=== PATIENT | female | born 1950 | race Caucasian/White ===

== ENCOUNTER → 2017-04-27 | Outpatient (CLI) | payer MEDICARE, OTHER ==
[~2017-04-27] MED LIST: ALLO100T PO; AMLO10TA2 PO; ASPI81TA85 PO; CENTTAB47 PO; FURO40TA2 PO; HYDR-3713 PO; INSUDET SC; INSUH10VL SC; JANU100T PO; LOVA40TA PO; MAGN500T2 PO; METF-415 PO; METO1TAB7 PO; METO50TA7 PO; NORT10CA2 PO; OXYC-141 PO; PERC5TAB12 PO; PROT1TAB2 PO; TRAM50TA2 PO
--- NOTE | 2017-04-27 16:24 | REP ---
REASON: Knee pain. Assess for fluid collection. Multiple sonographic images of the medial posterior right knee show a nearly anechoic structure measuring 6.1 x 1.4 x 2.4 cm, possibly representing a kaye's cyst. IMPRESSION: Possible bakers cyst as described above. MRI would be confirmatory. Signed by Hakan Chen DO 04/27/2017 04:37 P
== END ==
LOC: M RAD 11:35
PROVIDERS: ATTEND Physician Assistant
DX: M25.561 Pain in right knee (principal)

== ENCOUNTER → 2017-08-10 | Outpatient (CLI) | payer MEDICARE, OTHER ==
[2017-08-10 20:10] LABS: ALBUMIN 3.8 GM/DL (3.2-5.2); ALBUMIN/GLOBULIN RATIO 0.95 (1.00-1.93); BILIRUBIN,DIRECT 0.2 MG/DL (0.0-0.2); BILIRUBIN,TOTAL 0.5 MG/DL (0.2-1.0); MAGNESIUM LEVEL 2.1 MG/DL (1.8-2.4); TOTAL PROTEIN 7.8 GM/DL (6.4-8.2)
== END ==
LOC: M WUC 13:46
PROVIDERS: ATTEND Internal Medicine Gastroenterology
DX: R10.13 Epigastric pain (principal); R94.5 Abnormal results of liver function studies; K58.9 Irritable bowel syndrome, unspecified; R16.0 Hepatomegaly, not elsewhere classified; E55.9 Vitamin D deficiency, unspecified

== ENCOUNTER → 2017-08-13 | Outpatient (CLI) | payer MEDICARE, OTHER ==
--- NOTE | 2017-08-13 10:17 | REP ---
Radionuclide gastric emptying: Anterior posterior images are performed at 2-minute intervals for 90 minutes following ingestion of two scrambled eggs with 6 ounces of water radiolabeled with 1.02 mCi of technetium 99m sulfur colloid. At 90 minutes there was 30% gastric emptying. The calculated T1/2 is 153 minutes. Normal T1/2 is 90 minutes. Impression: Delayed gastric emptying. Signed by Celso Vergara MD 08/13/2017 10:09 A
== END ==
LOC: M RAD 07:38
PROVIDERS: ATTEND Internal Medicine Gastroenterology
DX: R10.13 Epigastric pain (principal); R94.5 Abnormal results of liver function studies; K85.90 Acute pancreatitis without necrosis or infection, unspecified; Q45.3 Other congenital malformations of pancreas and pancreatic duct; R63.0 Anorexia; R16.0 Hepatomegaly, not elsewhere classified; K75.81 Nonalcoholic steatohepatitis (NASH); E55.9 Vitamin D deficiency, unspecified
CPT/HCPCS: 78264; A9541

== ENCOUNTER → 2017-11-05 | Outpatient (CLI) | payer MEDICARE, OTHER ==
[2017-11-05 19:40] LABS: HEMATOCRIT 39.3 % (36.0-47.0); HEMOGLOBIN 12.9 g/dl (12.0-16.0); MEAN CORPUSCULAR HEMOGLOBIN 29.8 pg (27.0-33.0); MEAN CORPUSCULAR HGB CONC 32.8 g/dl (32.0-36.5); MEAN CORPUSCULAR VOLUME 90.8 fl (80.0-96.0); PLATELET COUNT, AUTOMATED 185 10^3/uL (150-450); RED BLOOD COUNT 4.33 10^6/uL (4.00-5.40); RED CELL DISTRIBUTION WIDTH 13.2 % (11.5-14.5)
[2017-11-05 19:51] LABS: INR 0.97
[2017-11-05 20:58] LABS: ALBUMIN 3.8 GM/DL (3.2-5.2); ALBUMIN/GLOBULIN RATIO 0.93 (1.00-1.93); ALKALINE PHOSPHATASE 129 U/L (45-117); ALT/SGPT 59 U/L (12-78); ANION GAP 9 MEQ/L (8-16); AST/SGOT 52 U/L (7-37); BILIRUBIN,TOTAL 0.4 MG/DL (0.2-1.0); BLOOD UREA NITROGEN 45 MG/DL (7-18); CALCIUM LEVEL 9.5 MG/DL (8.8-10.2); CARBON DIOXIDE LEVEL 30 MEQ/L (21-32); CHLORIDE LEVEL 101 MEQ/L (98-107); CREATININE FOR GFR 1.72 MG/DL (0.55-1.02); GLOMERULAR FILTRATION RATE 31.7 (>45); GLUCOSE, FASTING 195 MG/DL (80-110); POTASSIUM SERUM 4.1 MEQ/L (3.5-5.1); SODIUM LEVEL 140 MEQ/L (136-145); TOTAL PROTEIN 7.9 GM/DL (6.4-8.2)
[2017-11-08 14:11] LABS: ANTINUCLEAR ANTIBODIES DIRECT Negative (Negative)
== END ==
LOC: M WUC 13:35
DX: R94.5 Abnormal results of liver function studies (principal); R16.0 Hepatomegaly, not elsewhere classified; Q45.3 Other congenital malformations of pancreas and pancreatic duct; R10.13 Epigastric pain
CPT/HCPCS: 80053

== ENCOUNTER → 2017-11-19 | Outpatient (CLI) | payer MEDICARE, OTHER | LOC: M RAD 08:42 | DX: R10.11 Right upper quadrant pain (principal); R16.0 Hepatomegaly, not elsewhere classified; R94.5 Abnormal results of liver function studies | CPT/HCPCS: J2805 ==

== ENCOUNTER → 2018-01-31 | Outpatient (CLI) | payer MEDICARE, OTHER | LOC: M RAD 08:50 | DX: R94.5 Abnormal results of liver function studies (principal) | CPT/HCPCS: 76705 ==

== ENCOUNTER → 2018-04-06 | Outpatient (CLI) | payer MEDICARE, OTHER | LOC: M RAD 07:53 | DX: R10.13 Epigastric pain (principal); R11.2 Nausea with vomiting, unspecified | CPT/HCPCS: 78264 ==

== ENCOUNTER → 2018-08-12 | Outpatient (CLI) | payer MEDICARE, OTHER | LOC: M RAD 10:02 | DX: K76.0 Fatty (change of) liver, not elsewhere classified (principal); R16.0 Hepatomegaly, not elsewhere classified; K74.60 Unspecified cirrhosis of liver; R94.5 Abnormal results of liver function studies; R10.13 Epigastric pain; K29.70 Gastritis, unspecified, without bleeding; K44.9 Diaphragmatic hernia without obstruction or gangrene; E55.9 Vitamin D deficiency, unspecified; Z12.11 Encounter for screening for malignant neoplasm of colon | CPT/HCPCS: 76705 ==

== ENCOUNTER → 2018-11-28 | Outpatient (CLI) | payer MEDICARE, OTHER ==
[~2018-11-28] MED LIST changes: -AMLO10TA2 PO; +AMLO10TA5 PO
[2018-11-28 17:58] LABS: CALCIUM LEVEL 10.2 MG/DL (8.8-10.2); CREATININE FOR GFR 1.98 MG/DL (0.55-1.30); GLOMERULAR FILTRATION RATE 26.8 (>45); POTASSIUM SERUM 4.7 MEQ/L (3.5-5.1)
== END ==
LOC: M WUC 11:12
PROVIDERS: ATTEND Physician Assistant
DX: E87.6 Hypokalemia (principal)

== ENCOUNTER → 2019-01-02 | Outpatient (CLI) | payer MEDICARE, OTHER | LOC: M WUC 09:14 | PROVIDERS: ATTEND Internal Medicine Nephrology | DX: E11.69 Type 2 diabetes mellitus with other specified complication (principal) ==

== ENCOUNTER 2019-07-16 05:44 | Inpatient (IN) | payer MEDICARE, OTHER ==
[~2019-07-16] VITALS: Ht 157.5 cm; Wt 114.1 kg
[2019-07-16] MEDS ORDERED: ALLO100T PO (06:48)
[2019-07-16] MEDS ORDERED: FURO40TA2 PO ×2 (06:53)
[2019-07-16] MEDS ORDERED: LOVA20TA2 PO (06:53)
[2019-07-16 06:55] LABS: BASO % 0.1 % (0.0-1.0); EOS % 0.1 % (0.0-3.0); HEMATOCRIT 39.3 % (36.0-47.0); HEMOGLOBIN 12.8 g/dl (12.0-15.5); LYMPH # 0.8 10^3/uL (1.5-5.0); LYMPH % 5.5 % (24.0-44.0); MEAN CORPUSCULAR HEMOGLOBIN 30.5 pg (27.0-33.0); MEAN CORPUSCULAR HGB CONC 32.6 g/dl (32.0-36.5); MEAN CORPUSCULAR VOLUME 93.8 fl (80.0-96.0); MONO # 0.9 10^3/uL (0.0-0.8); MONO % 6.5 % (0.0-5.0); NEUTROPHILS # 12.6 10^3/uL (1.5-8.5); NEUTROPHILS % 87.2 % (36.0-66.0); PLATELET COUNT, AUTOMATED 145 10^3/uL (150-450); RED BLOOD COUNT 4.19 10^6/uL (4.00-5.40); WHITE BLOOD COUNT 14.5 10^3/uL (4.0-10.0)
[2019-07-16] MEDS ORDERED: TORS20TA2 PO (07:00)
[2019-07-16] MEDS ORDERED: SPIR50TA4 PO (07:00)
[2019-07-16] MEDS ORDERED: K-TA10TA PO (07:00)
[2019-07-16] MEDS ORDERED: TORS100T PO (07:00)
[2019-07-16] MEDS ORDERED: K-TA10TA2 PO (07:00)
[2019-07-16] MEDS ORDERED: CETI10CH PO (07:01)
[2019-07-16 07:20] LABS: ALT/SGPT 104 U/L (12-78); AMYLASE 56 U/L (25-115); BILIRUBIN,DIRECT 0.5 MG/DL (0.0-0.2); BILIRUBIN,TOTAL 0.8 MG/DL (0.2-1.0); BLOOD UREA NITROGEN 53 MG/DL (7-18); CALCIUM LEVEL 9.2 MG/DL (8.8-10.2); CARBON DIOXIDE LEVEL 28 MEQ/L (21-32); CHLORIDE LEVEL 98 MEQ/L (98-107); CK-MB VALUE MASS < 1.0 NG/ML (<3.6); CPK CREATINE PHOSPHOKINASE 46 U/L (26-192); CREATININE FOR GFR 2.44 MG/DL (0.55-1.30); GLUCOSE, FASTING 169 MG/DL (70-100); LIPASE 146 U/L (73-393); MB/CK RELATIVE INDEX 2.17 (< OR =4); POTASSIUM SERUM 4.6 MEQ/L (3.5-5.1); SODIUM LEVEL 135 MEQ/L (136-145); TOTAL PROTEIN 7.3 GM/DL (6.4-8.2); TROPONIN I < 0.02 NG/ML (< 0.10)
[2019-07-16] MEDS ORDERED: NS 1,000 ML IV ONE ×2 (07:30→10:00)
--- NOTE | 2019-07-16 08:29 | REPVR ---
PROCEDURE INFORMATION: Exam: CT Abdomen and pelvis without contrast Exam date and time: 07/16/2019 7:45 AM Clinical history: 69 years old, female; Abdominal pain; Flank; Left; Additional info: Left flank pain, fever TECHNIQUE: Imaging protocol: Computed tomography of the abdomen and pelvis without contrast. Radiation optimization: All CT scans at this facility use at least one of these dose optimization techniques: automated exposure control; mA and/or kV adjustment per patient size (includes targeted exams where dose is matched to clinical indication); or iterative reconstruction. COMPARISON: CT ABD PELVIS W/O CONTRAST 11/21/2015 3:47 PM FINDINGS: Lungs: There is bilateral posterior lung atelectasis. Liver: There is nodular hepatic contour. Gallbladder and bile ducts: There is gallbladder layering milk of calcium versus small stones. There is no biliary ductal dilatation. Pancreas: Normal. No ductal dilation. Spleen: Normal. No splenomegaly. Adrenals: Normal. No mass. Kidneys and ureters: The right kidney is severely atrophic. There is nonspecific left perinephric stranding with stranding and edema seen in the renal hilum also. Stomach and bowel: Unremarkable. No obstruction. No mucosal thickening. Appendix: No evidence of appendicitis. Intraperitoneal space: Unremarkable. No free air. No significant fluid collection. Vasculature: There is moderate coronary vascular calcifications. There is short segment aneurysmal dilatation of the infrarenal abdominal aorta measuring up to 3 cm. Lymph nodes: Unremarkable. No enlarged lymph nodes. Bladder: The urinary bladder is not distended limiting its evaluation. Reproductive: Unremarkable as visualized. Bones/joints: There is multilevel lumbar spine facet arthrosis with significant L5 S1 disc degenerative changes. Soft tissues: There is a 3.2 x 3.1 cm periumbilical fat containing hernia.. IMPRESSION: 1. Severely atrophic right kidney likely congenital. 2. Nonspecific mild left perinephric stranding as well as stranding in the region of the renal hilum. No obstructing stones or hydronephrosis seen. Correlate clinically for pyelonephritis. 3. Cirrhotic liver. 4. Small amount of layering milk of calcium versus gallstones with no CT evidence of cholecystitis. 5. Mild fusiform short segment aneurysmal dilatation of the infrarenal aorta measuring up to 3 cm. 6. 3.2 x 3.1 cm periumbilical fat-containing. COMMENT: Consistent with the [employer]'s Incidental Findings Committee Report (J Am Pia Radiol 2010): Unless the patient's specific circumstances suggest otherwise, any liver lesion 0.5 cm or less, any cystic kidney lesion less than 1.0 cm, and/or any adrenal lesion 1.0 cm or less not otherwise characterized in this report as possessing suspicious or indeterminate imaging features is/are highly likely to be benign and do not require follow-up imaging or biopsy. Electronically signed by: Cuong Soriano On 07/16/2019 08:29:45 AM
[2019-07-16] MEDS ORDERED: cefTRIAXone SOD 1 GM in D5W MINI-BAG PLUS 50 ML IV ONE (09:45)
[2019-07-16] MEDS ORDERED: GABA-1171 PO (10:10)
[2019-07-16] MEDS ORDERED: ACET-897 PO (10:10)
[2019-07-16] MEDS ORDERED: MULTCAP PO (10:10)
[2019-07-16] MEDS ORDERED: GLUCAGON FOR INJ 1 MG VIAL (J1610) SC PRN (10:30)
[2019-07-16] MEDS ORDERED: DEXTROSE 50% 50 ML SYRINGE IV PRN (10:30)
[2019-07-16] MEDS ORDERED: GLUCOSE 4 GM CHEW TABLET PO PRN (10:30)
[2019-07-16] MEDS ORDERED: MORPHINE 4 MG/ML 1ML VIAL/SYRINGE (J2270) IV PRN (10:30)
[2019-07-16] MEDS ORDERED: ONDANSETRON 4MG/2ML VIAL (J2405) IV ONE (10:30)
[2019-07-16] MEDS: NS 1,000 ML IV SCH ×4 (11:00→20:46)
[2019-07-16] MEDS: ACETAMINOPHEN TAB 650MG DOSE (2X325MG) PO PRN ×2 (11:57→20:48)
[2019-07-16] MEDS: HumaLOG INSULIN (NovoLOG) PER UNIT SC SCH ×2 (12:00→18:04)
--- NOTE | 2019-07-16 13:50 | HPEPDOC ---
General Date of Admission Jul 16, 2019 at 10:18 Date of Service: Jul 16, 2019 Chief Complaint The patient is a 69-year-old female Who presented to the emergency room with complaints of fevers and chills History of Present Illness Patient is a 69-year-old female with a PMHx of CHF?, HTN, DLP, DM2, Congenitally atrophic right kidney, CKD3, Neuropathy, Gout, Arthritis and GERD who presented to the emergency room with complaints of fevers and chills. Patient has reported that she began to experience fevers and chills on Wednesday she noted that she had associated left-sided abdominal/back pain. Patient reported the pain as 8-9/10, reported as a constant burning sensation. Reported that she has had a fever of 101F at home and persistent chills. Patient did report taking Tylenol 4:00 this morning. Patient denies any vomiting but does experience nausea. . She denies any constipation, diarrhea, or urinary discomfort. She denies any chest pain but does report some shortness of breath and palpitations. Denies any significant cough. Patient does report some weight loss but notes that her appetite has been fairly normal. She denies any recent antibiotic use. Home Medications Scheduled Allopurinol (Allopurinol) 100 Mg Tablet, 100 MG PO BID, (Reported) AM AND HS Amlodipine Besylate (Amlodipine Besylate) 10 Mg Tab, 10 MG PO DAILY, (Reported) Aspirin (Aspir 81) 81 Mg Tab, 81 MG PO QHS, (Reported) Gabapentin (Gabapentin) 100 Mg Capsule, 300 MG PO QHS, (Reported) Lovastatin (Lovastatin) 20 Mg Tablet, 20 MG PO QHS, (Reported) Magnesium Oxide (Magnesium Oxide) 500 Mg Tab, 500 MG PO BID, (Reported) Metoprolol Succinate (Metoprolol Succinate) 50 Mg Tab, 50 MG PO QHS, (Reported) Multivitamin (Multivitamins) 1 Each Capsule, 1 CAP PO QHS, (Reported) Pantoprazole Sodium (Protonix) 40 Mg Tab, 40 MG PO DAILY, (Reported) Potassium Chloride (K-Tab ER) 10 Meq Tablet.er, 10 MEQ PO QHS, (Reported) 30 MEQ TOTAL PER DAY Potassium Chloride (K-Tab ER) 10 Meq Tablet.er, 20 MEQ PO DAILY, (Reported) 30 MEQ TOTAL PER DAY Spironolactone (Spironolactone) 50 Mg Tablet, 50 MG PO DAILY, (Reported) Torsemide (Torsemide) 20 Mg Tablet, 40 MG PO QHS, (Reported) 90 MG TOTAL PER DAY Torsemide (Torsemide) 100 Mg Tablet, 50 MG PO DAILY, (Reported) 90 MG TOTAL PER DAY Scheduled PRN Acetaminophen (Tylenol Extra Strength) 500 Mg Tablet, 1,000 MG PO Q6H PRN for PAIN / FEVER, (Reported) Cetirizine HCl (Cetirizine HCl) 10 Mg Tab.chew, 1 TAB PO DAILY PRN for ALLERGY SYMPTOMS, (Reported) Insulin Human Lispro (Novolog) 100 U/Ml Inj, 1 DOSE SC WM PRN for CARB INTAKE, (Reported) USES INSULIN PUMP Allergies Coded Allergies: Sulfa (Sulfonamide Antibiotics) (Verified Allergy, Intermediate, HIVES, 07/16/19) tetracycline (Verified Allergy, Intermediate, HIVES, 07/16/19) bee venom protein (honey bee) (Verified Allergy, Unknown, SWELLING, 07/16/19) Past Medical History Medical History CHF?, HTN, DLP, DM2, Congenitally atrophic right kidney, CKD3, Neuropathy, Gout, Arthritis and GERD Surgical History Back surgery 1998 Neck surgery 2006 Carpal tunnel release Right elbow surgery Ovarian cyst removal Tubal ligation Right knee surgery 2007 Colonoscopy 2003 Right hand surgery 2019 Right ankle surgery Family History - Mother with a history of breast tumor - Father with a history of bladder cancer - Son with a history of kidney disease and skin cancer Social History - Denies the use of alcohol or illicit drugs; patient has quit smoking - Denies recent travel or sick contacts - Lives alone in [place] - Occupation; 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 [employer] Review [employer] Systems Other systems 10 point review of systems complete, all negative otherwise stated in HPI Vital Signs - Vitals: BP 151/58, HR 110, RR 16, Sat 92%RA, Temp 102.2F - General: Lying in bed, No acute distress, Speaking in full sentences, AAOx3 - HEENT: NC, AT, PERRLA, EOMI - CVS: Tachycardia, +S1S2 - Lungs: Fair air entry bilaterally, No appreciable wheezing / rales / rhonchi - Abdomen: Soft, Non-distended, Tenderness noted at L upper quadrant / flank - Extremities: No lower extremity edema, No calf tenderness - Neuro: No focal motor or sensory deficit - Skin: No visible rashes Laboratory Data Labs 24H Laboratory Tests 2 07/16/19 06:20: Immature Granulocyte % (Auto) 0.6, White Blood Count 14.5H, Red Blood Count 4.19, Hemoglobin 12.8, Hematocrit 39.3, Mean Corpuscular Volume 93.8, Mean Corpuscular Hemoglobin 30.5, Mean Corpuscular Hemoglobin Concent 32.6, Red Cell Distribution Width 16.0H, Platelet Count 145L, Neutrophils (%) (Auto) 87.2H, Lymphocytes (%) (Auto) 5.5L, Monocytes (%) (Auto) 6.5H, Eosinophils (%) (Auto) 0.1, Basophils (%) (Auto) 0.1, Neutrophils # (Auto) 12.6H, Lymphocytes # (Auto) 0.8L, Monocytes # (Auto) 0.9H, Eosinophils # (Auto) 0.0, Basophils # (Auto) 0.0, Nucleated Red Blood Cells % (auto) 0.0, Anion Gap 9, Glomerular Filtration Rate 21.0L, Lactic Acid Level 2.0, Calcium Level 9.2, Aspartate Amino Transf (AST/SGOT) 66H, Alanine Aminotransferase (ALT/SGPT) 104H, Alkaline Phosphatase 300H, Total Bilirubin 0.8, Direct Bilirubin 0.5H, Total Creatine Kinase 46, Creatine Kinase MB < 1.0, Creatine Kinase MB Relative Index 2.17, Troponin I < 0.02, Total Protein 7.3, Albumin 3.0L, Albumin/Globulin Ratio 0.70L, Amylase Level 56, Lipase 146 07/16/19 09:28: Urine Color YELLOW, Urine Appearance HAZY, Urine pH 6.0, Urine Specific [place] 1.006, Urine Protein 1+H, Urine Glucose (UA) NEGATIVE, Urine Ketones NEGATIVE, Urine Blood 3+H, Urine Nitrite NEGATIVE, Urine Bilirubin NEGATIVE, Urine Urobilinogen 0.2, Urine Leukocyte Esterase 3+H, Urine WBC (Auto) TNTCH, Urine RBC (Auto) 26H, Urine Hyaline Casts (Auto) 0, Urine Bacteria (Auto) 1+H, Urine Squamous Epithelial Cells 0, Urine Amorphous Sediment SMALLH, Urine Mucus (Auto) SMALL, Urine Sperm (Auto) 07/16/19 12:33: Bedside Glucose (Misc Panel) 155H CBC/BMP Laboratory Tests 07/16/19 06:20 Red Blood Count 4.19, Mean Corpuscular Volume 93.8, Mean Corpuscular Hemoglobin 30.5, Mean Corpuscular Hemoglobin Concent 32.6, Red Cell Distribution Width 16.0 H, Neutrophils (%) (Auto) 87.2 H, Lymphocytes (%) (Auto) 5.5 L, Monocytes (%) (Auto) 6.5 H, Eosinophils (%) (Auto) 0.1, Basophils (%) (Auto) 0.1, Neutrophils # (Auto) 12.6 H, Lymphocytes # (Auto) 0.8 L, Monocytes # (Auto) 0.9 H, Eosinophils # (Auto) 0.0, Basophils # (Auto) 0.0 Microbiology Microbiology 07/16/19 Urine Culture, Received Pending 07/16/19 Blood Culture, Received Pending 07/16/19 Blood Culture, Received Pending Plan / VTE VTE Prophylaxis Ordered?: Yes Plan Plan Fever / Chills - likely 2/2 UTI / Pyelonephritis - Patient has been experiencing fevers and chills since Wednesday associated with left-sided flank pain - Physical exam does reveal left-sided flank tenderness - Patient is febrile, but remains hemodynamically stable - Leukocytosis with neutrophil predominance is noted; no lactic acidosis - Urinalysis is consistent with urinary tract infection; urine and blood culture remains pending - CT ab/pel 07/16: 1. Severely atrophic right kidney likely congenital. 2. Nonspecific mild left perinephric stranding as well as stranding in the region of the renal hilum. No obstructing stones or hydronephrosis seen. Correlate clinically for pyelonephritis. 3. Cirrhotic liver. 4. Small amount of layering milk of calcium versus gallstones with no CT evidence of cholecystitis. 5. Mild fusiform short segment aneurysmal dilatation of the infrarenal aorta measuring up to 3 cm. 6. 3.2 x 3.1 cm periumbilical fat-containing. - Patient and started on aggressive IV fluid hydration and antibiotics with ceftriaxone CALE on CKD3 - likely 2/2 pre-renal etiology - 2/2 - Hx of Congenitally atrophic right kidney - Patient creatinine appears to be elevated compared to baseline - Will c/w IV fluid hydration - Patient follows with Dr. Garcia in [place] Thrombocytopenia - Imaging his indicated possibility of cirrhosis - Will continue to monitor counts Elevated liver enzymes - Hepatitis profile from 02/2016 was negative - Will repeat hepatitis profile currently - Imaging was consistent with cirrhosis - Will continue to monitor levels CHF, EF unknown - There does not appear to be any signs of fluid overload - Will order ECHO - Will hold torsemide and spironolactone - Will reduce rate of IV fluid hydration within 12 hours HTN - Blood pressure is within normal range - Will hold antihypertensive medications at this point DLP - Continue with Simvastatin DM2 - Patient reports that she only has half the pancreas; but was diagnosed with diabetes in her 40s - Patient has been on an insulin pump as an outpatient - Given patients poor oral intake, will transition the patient had an insulin sliding scale while inpatient Neuropathy - c/w Gabapentin Gout - c/w Allopurinol Arthritis - c/w Tylenol GERD - c/w Protonix DVT prophylaxis - Will start TEDs / Sequentials (re: Thrombocytopenia) VIVIAN BRITTON MD Jul 16, 2019 13:50
[2019-07-16] MEDS: ALLOPURINOL 100 MG TAB PO SCH ×2 (14:18→20:47)
[2019-07-16] MEDS: MAGNESIUM OXIDE 400 MG TAB (MAG-OX) PO SCH ×2 (14:18→20:47)
[2019-07-16 16:00] VITALS: BP 100/62
[2019-07-16] MEDS ORDERED: NS 500 ML IV ONE (18:30)
[2019-07-16 20:00] VITALS: BP 96/51
[2019-07-16] MEDS: ASPIRIN 81 MG ENTERIC TAB PO SCH (20:47)
[2019-07-16] MEDS: SIMVASTATIN 20 MG TAB PO SCH (20:47)
[2019-07-16] MEDS: GABAPENTIN 300 MG CAP PO SCH (20:47)
[2019-07-16] MEDS: MULTIVITAMINS/MINERALS THERAP 1 TAB PO SCH (20:48)
[2019-07-16] MEDS ORDERED: HumaLOG INSULIN (NovoLOG) PER UNIT SC SCH (21:00)
[2019-07-16 23:59] VITALS: BP 101/51
[2019-07-17] MEDS: ACETAMINOPHEN TAB 650MG DOSE (2X325MG) PO PRN ×2 (02:41→15:31)
[2019-07-17] MEDS: NS 1,000 ML IV SCH ×2 (02:44→21:21)
[2019-07-17 03:57] VITALS: BP 100/55
[2019-07-17 05:49] LABS: HEMATOCRIT 32.2 % (36.0-47.0); MEAN CORPUSCULAR HEMOGLOBIN 29.7 pg (27.0-33.0); MEAN CORPUSCULAR HGB CONC 31.7 g/dl (32.0-36.5); MEAN CORPUSCULAR VOLUME 93.9 fl (80.0-96.0); RED BLOOD COUNT 3.43 10^6/uL (4.00-5.40); WHITE BLOOD COUNT 16.9 10^3/uL (4.0-10.0)
[2019-07-17 05:56] LABS: HEMOGLOBIN 10.2 g/dl (12.0-15.5)
[2019-07-17 05:59] LABS: LYMPHOCYTES 12 % (16-44); MONOCYTES 9 % (0-5); NEUTROPHILS 73 % (28-66)
[2019-07-17 06:00] LABS: ANISOCYTOSIS 1+; PLATELET ESTIMATE INVALID (NORMAL)
[2019-07-17 06:21] LABS: ALBUMIN 2.1 GM/DL (3.2-5.2); BILIRUBIN,TOTAL 1.1 MG/DL (0.2-1.0); CALCIUM LEVEL 7.7 MG/DL (8.8-10.2); CREATININE FOR GFR 3.38 MG/DL (0.55-1.30); GLOMERULAR FILTRATION RATE 14.4 (>45); MAGNESIUM LEVEL 2.2 MG/DL (1.8-2.4); TOTAL PROTEIN 6.3 GM/DL (6.4-8.2)
--- NOTE | 2019-07-17 07:17 | REP ---
AP PORTABLE CHEST: 07/07/2019. Comparison: 07/28/2015 chest. Clinical history: Dyspnea. Lungs slightly hypoinflated but no gross infiltrate or effusion. There is some minor basilar subsegmental atelectasis or fibrotic change. Prominent epicardial fat as on the CT abdomen this date. No vascular redistribution or pulmonary edema. The aorta is calcified tortuous and unchanged. Airway intact. Surgical anchors overlying the right shoulder. Degenerative changes of the spine and shoulders. Impression: 1. Some minor basilar subsegmental atelectasis or infiltrate. No gross effusion or dense consolidation. 2. Cardiomegaly without edema.. 3. Tortuous calcified aorta without gross aneurysm. Electronically Signed by Misha Renteria MD 07/17/2019 08:23 A
[2019-07-17 07:38] LABS: PLTBLUE- EDTA FREE CALC 86 K/mm3 (172-450)
[2019-07-17 08:00] VITALS: BP 123/64
[2019-07-17] MEDS: ALLOPURINOL 100 MG TAB PO SCH ×2 (08:16→20:27)
[2019-07-17] MEDS: PANTOPRAZOLE 40MG TAB (PROTONIX) PO SCH (08:16)
[2019-07-17] MEDS: MAGNESIUM OXIDE 400 MG TAB (MAG-OX) PO SCH ×2 (08:16→20:26)
[2019-07-17] MEDS: HumaLOG INSULIN (NovoLOG) PER UNIT SC SCH ×3 (08:16→17:13)
[2019-07-17 08:20] LABS: PLTBLUE- EDTA FREE MACHINE 78 10^3/uL (172-450)
[2019-07-17] MEDS ORDERED: cefTRIAXone SOD 1 GM in D5W MINI-BAG PLUS 50 ML IV SCH (10:00)
--- NOTE | 2019-07-17 11:47 | IPNPDOC ---
Text Note Date of Service The patient was seen on 07/17/19. NOTE Subjective: Patient is a 69-year-old female with a PMHx of CHF?, HTN, DLP, DM2, Congenitally atrophic right kidney, CKD3, Neuropathy, Gout, Arthritis and GERD who presented to the emergency room with complaints of fevers and chills. Patient has reported that she began to experience fevers and chills on Wednesday she noted that she had associated left-sided abdominal/back pain. Patient reported the pain as 8-9/10, reported as a constant burning sensation. Reported that she has had a fever of 101F at home and persistent chills. Patient did report taking Tylenol 4:00 this morning. Patient was admitted to hospitalist service for suspected pyelonephritis. Patient was seen and examined at the bedside. Currently, patient reports that she's feeling significantly better. She denies any chest pain, shortness of breath or palpitations. She does report some left-sided abdominal pain but reports that it is significantly improved and rates the pain at 2/10. Denies any diarrhea. Continues to urinate without any discomfort at the time. Objective: Vitals (See below) General: Lying in bed, no acute distress, comfortable, AAOx3 HEENT: NC, AT CVS: RRR, +S1S2 Lungs: Fair air entry b/l, no appreciable rhonchi or wheezing, Very faint bibasilar crackles are appreciated Abdomen: Soft, ND, mild tenderness appreciated at left side Extremities: no evidence of LE chano, - Calf tenderness Assessment and plan: Sepsis - 2/2 gram negative bacteremia - likely 2/2 UTI / Pyelonephritis - Patient has been experiencing fevers and chills since Wednesday associated with left-sided flank pain - Physical with improvement in left-sided abdominal/flank tenderness - Patient is febrile, but remains hemodynamically stable - Leukocytosis - has increased; s/p Lactic acidosis - Urinalysis is consistent with urinary tract infection - Blood cultures 07/16: Preliminary positive for gram negative rods; Urine culture 07/16: Possibly contaminated - CT ab/pel 07/16: 1. Severely atrophic right kidney likely congenital. 2. Nonspe cific mild left perinephric stranding as well as stranding in the region of the renal hilum. No obstructing stones or hydronephrosis seen. Correlate clinically for pyelonephritis. 3. Cirrhotic liver. 4. Small amount of layering milk of calcium versus gallstones with no CT evidence of cholecystitis. 5. Mild fusiform short segment aneurysmal dilatation of the infrarenal aorta measuring up to 3 cm. 6. 3.2 x 3.1 cm periumbilical fat-containing. - c/w IV fluid hydration (will reduce rate)l; c/w ceftriaxone (Day #2) CALE on CKD3 - likely 2/2 pre-renal etiology - Hx of Congenitally atrophic right kidney - Patient creatinine appears to be elevated compared to baseline; kidney function has deteriorated over last 24 hours. We'll continue with IV fluid hydration at this time - Will avoid nephrotoxic medications - c/w IV fluid hydration - Patient follows with Dr. Garcia in [place] Thrombocytopenia - possibly 2/2 sepsis, possibly 2/2 cirrhosis - Imaging his indicated possibility of cirrhosis - No evidence of bleeding - Will continue to monitor counts Elevated liver enzymes - Appears to be trending down - Hepatitis profile from 02/2016 was negative - Hepatitis profile pending - Imaging was consistent with cirrhosis - Will continue to monitor levels CHF, EF unknown - There does not appear to be any signs of fluid overload - ECHO pending - Continue to hold torsemide and spironolactone - c/w adjusted rate of IV fluid hydration HTN - Blood pressure is within normal range - Will hold antihypertensive medications at this point DLP - c/w Simvastatin DM2 - Patient reports that she only has half the pancreas; but was diagnosed with diabetes in her 40s - Patient has been on an insulin pump as an outpatient - Given patients poor oral intake, will transition the patient had an insulin sliding scale while inpatient - Will likely resume insulin pump within 24 hours Neuropathy - c/w Gabapentin Gout - c/w Allopurinol Arthritis - c/w Tylenol GERD - c/w Protonix DVT prophylaxis - c/w TEDs / Sequentials (re: Thrombocytopenia) VS,Fishbone, I+O VS, Fishbone, I+O Laboratory Tests 07/17/19 05:37 Red Blood Count 3.43 L, Mean Corpuscular Volume 93.9, Mean Corpuscular Hemoglobin 29.7, Mean Corpuscular Hemoglobin Concent 31.7 L, Red Cell Distribution Width 15.9 H, Calcium Level 7.7 #L, Aspartate Amino Transf (AST/SGOT) 55 H, Alanine Aminotransferase (ALT/SGPT) 78, Alkaline Phosphatase 234 H, Total Bilirubin 1.1 H, Total Protein 6.3 L, Albumin 2.1 #L Vital Signs Date Time Temp Pulse Resp B/P (MAP) Pulse Ox O2 Delivery O2 Flow Rate FiO2 07/17/19 08:00 97.2 77 18 123/64 (83) 92 07/16/19 11:54 Room Air I&O- Last 24 Hours up to 6 AM 07/17/19 05:59 Intake Total 5016 ml Output Total 690 ml Balance 4326 ml VIVIAN BRITTON MD Jul 17, 2019 11:47
[2019-07-17 12:00] VITALS: BP 116/61
[2019-07-17 12:48] LABS: HEPATITIS B SURFACE ANTIGEN NEGATIVE (NEGATIVE)
[2019-07-17 13:15] LABS: HEPATITIS C VIRUS ABY INDEX 0.2 INDEX (<0.8)
[2019-07-17 13:16] LABS: HEPATITIS B CORE ANTIBODY IGM NEGATIVE (NEGATIVE)
[2019-07-17 13:18] LABS: HEPATITIS A ANTIBODY IGM NEGATIVE (NEGATIVE)
[2019-07-17 16:00] VITALS: BP 128/63
[2019-07-17] MEDS ORDERED: HumaLOG INSULIN (NovoLOG) PER UNIT SC STA (17:06)
--- NOTE | 2019-07-17 17:49 | ECHO ---
DATE OF PROCEDURE: 07/17/2019 REFERRING PHYSICIAN: Dr. Jacinta Armando INDICATION: Sepsis. Height 158 cm, weight 105 kg. DIMENSIONS: IVS: 1.0 LV: 5.3 LVPW: 1.0 LA: 3.8 Aorta: 2.9 Mitral E wave velocity: 66 A wave: 81 E prime septal: 5.9 E prime lateral: 9.6 FINDINGS: The study is of fair technical quality. The patient is in sinus rhythm. Left ventricle is of normal size and systolic function with estimated left ventricular ejection fraction (LVEF) approximately 60-65%. I do not appreciate any segmental wall motion abnormalities. Right ventricle is also normal size and systolic function. Both atria appear normal. Aortic valve appears minimally sclerotic but has normal mobility. Mitral valve exhibits mild degenerative abnormalities with mitral annular calcifications. Tricuspid valve is normal. Pulmonic valve was not well seen. No pericardial effusion is noted. Aortic root is normal. Aortic arch and abdominal aorta were not well visualized. Doppler interrogation of aortic valve reveals no stenosis or insufficiency. There is mild mitral insufficiency and trace tricuspid insufficiency. Calculated pulmonary artery pressure is within normal limits. Mitral inflow pattern and tissue Doppler imaging of mitral annulus revealed grade 1 diastolic dysfunction. CONCLUSIONS: 1. Study is of fair technical quality. 2. Normal left ventricular (LV) size with preserved LV systolic function and grade 1 diastolic dysfunction. 3. Aortic sclerosis but no significant stenosis. 4. Mild mitral and tricuspid insufficiency. 5. Unable to estimate central venous pressure but likely normal pulmonary artery pressure. COMMENT: Subacute bacterial endocarditis (SBE) prophylaxis is not recommended.
[2019-07-17 19:56] VITALS: BP 113/57
[2019-07-17] MEDS: SIMVASTATIN 20 MG TAB PO SCH (20:27)
[2019-07-17] MEDS: ASPIRIN 81 MG ENTERIC TAB PO SCH (20:27)
[2019-07-17] MEDS: MULTIVITAMINS/MINERALS THERAP 1 TAB PO SCH (20:27)
[2019-07-17] MEDS: GABAPENTIN 300 MG CAP PO SCH (20:27)
[2019-07-17 23:59] VITALS: BP 124/59
[2019-07-18 04:00] VITALS: BP 109/54
[2019-07-18 06:16] LABS: BASO % 0.2 % (0.0-1.0); HEMATOCRIT 32.9 % (36.0-47.0); HEMOGLOBIN 10.7 g/dl (12.0-15.5); LYMPH # 0.7 10^3/uL (1.5-5.0); LYMPH % 6.2 % (24.0-44.0); MEAN CORPUSCULAR HEMOGLOBIN 30.1 pg (27.0-33.0); MEAN CORPUSCULAR HGB CONC 32.5 g/dl (32.0-36.5); MEAN CORPUSCULAR VOLUME 92.7 fl (80.0-96.0); MONO # 0.6 10^3/uL (0.0-0.8); MONO % 5.6 % (0.0-5.0); NEUTROPHILS # 9.8 10^3/uL (1.5-8.5); NEUTROPHILS % 86.1 % (36.0-66.0); PLATELET COUNT, AUTOMATED 101 10^3/uL (150-450); RED BLOOD COUNT 3.55 10^6/uL (4.00-5.40); WHITE BLOOD COUNT 11.4 10^3/uL (4.0-10.0)
[2019-07-18 06:45] LABS: ALBUMIN 2.3 GM/DL (3.2-5.2); ALT/SGPT 86 U/L (12-78); BILIRUBIN,TOTAL 0.7 MG/DL (0.2-1.0); BLOOD UREA NITROGEN 67 MG/DL (7-18); CALCIUM LEVEL 8.4 MG/DL (8.8-10.2); CARBON DIOXIDE LEVEL 23 MEQ/L (21-32); CHLORIDE LEVEL 103 MEQ/L (98-107); CREATININE FOR GFR 2.77 MG/DL (0.55-1.30); GLOMERULAR FILTRATION RATE 18.2 (>45); GLUCOSE, FASTING 346 MG/DL (70-100); MAGNESIUM LEVEL 2.8 MG/DL (1.8-2.4); POTASSIUM SERUM 4.8 MEQ/L (3.5-5.1); SODIUM LEVEL 133 MEQ/L (136-145)
[2019-07-18 08:00] VITALS: BP 135/60
[2019-07-18] MEDS: PANTOPRAZOLE 40MG TAB (PROTONIX) PO SCH (08:01)
[2019-07-18] MEDS: ALLOPURINOL 100 MG TAB PO SCH ×2 (08:01→20:17)
[2019-07-18] MEDS: MAGNESIUM OXIDE 400 MG TAB (MAG-OX) PO SCH ×3 (08:01→21:00)
[2019-07-18] MEDS: CEFDINIR 300 MG CAP (OMNICEF) PO SCH (08:01)
[2019-07-18] MEDS: NS 1,000 ML IV SCH ×2 (08:01→20:17)
--- NOTE | 2019-07-18 12:12 | IPNPDOC ---
Text Note Date of Service The patient was seen on 07/18/19. NOTE Subjective: Patient is a 69-year-old female with a PMHx of CHF?, HTN, DLP, DM2, Congenitally atrophic right kidney, CKD3, Neuropathy, Gout, Arthritis and GERD who presented to the emergency room with complaints of fevers and chills. Patient has reported that she began to experience fevers and chills on Wednesday she noted that she had associated left-sided abdominal/back pain. Patient reported the pain as 8-9/10, reported as a constant burning sensation. Reported that she has had a fever of 101F at home and persistent chills. Patient did report taking Tylenol 4:00 this morning. Patient was admitted to hospitalist service for suspected pyelonephritis. Patient was seen and examined at the bedside. Patient is feeling significantly better. Denies any problems overnight. Reports improvement in pain. No urinary discomfort or diarrhea reported. Objective: Vitals (See below) General: Lying in bed, no acute distress, comfortable, AAOx3 HEENT: NC, AT CVS: +S1S2 Lungs: Fair air entry b/l, no appreciable rhonchi or wheezing, very faint bibasilar crackles are appreciated Abdomen: Soft, ND, very mild tenderness is still appreciated at left flank Extremities: LE are without any edema, - Calf tenderness Assessment and plan: Sepsis - 2/2 E. Coli bacteremia - likely 2/2 UTI / Pyelonephritis - Patient has been experiencing fevers and chills since Wednesday associated with left-sided flank pain - Physical with improvement in left-sided abdominal/flank tenderness - Has been afebrile for >48 hours - Leukocytosis - has increased; s/p Lactic acidosis - Urinalysis is consistent with urinary tract infection - Blood cultures 07/16: E. Coli; Blood cultures 07/17: Negative at 24 hours, Urine culture 07/16: Contaminated - CT ab/pel 07/16: 1. Severely atrophic right kidney likely congenital. 2. Nonspecific mild left perinephric stranding as well as stranding in the region of the renal hilum. No obstructing stones or hydronephrosis seen. Correlate clinically for pyelonephritis. 3. Cirrhotic liver. 4. Small amount of layering milk of calcium versus gallstones with no CT evidence of cholecystitis. 5. Mild fusiform short segment aneurysmal dilatation of the infrarenal aorta measuring up to 3 cm. 6. 3.2 x 3.1 cm periumbilical fat-containing. - c/w IV fluid hydration - will discontinue within 12 hours - Will start Cefdinir; Will DC ceftriaxone (Day #3) CALE on CKD3 - likely 2/2 pre-renal etiology - Hx of Congenitally atrophic right kidney - Baseline Cr of 1.1-1.7; has been improving with IV fluid hydration - Will avoid nephrotoxic medications - c/w IV fluid hydration - Patient follows with Dr. Garcia in [place] Thrombocytopenia - possibly 2/2 sepsis, possibly 2/2 cirrhosis - Imaging his indicated possibility of cirrhosis - No evidence of bleeding - Will continue to monitor counts Elevated liver enzymes - Appears to be trending down - Hepatitis profile from 02/2016 was negative; again on 07/16 - Imaging was consistent with cirrhosis - Will continue to monitor levels - Patient follows with a [facility] in [place] Chronic Diastolic CHF, EF unknown - There does not appear to be any signs of fluid overload - ECHO 07/17: EF 65%, G1DD, Mild Mitral / Tricuspid Insufficiency, - Continue to hold torsemide and spironolactone - c/w adjusted rate of IV fluid hydration HTN - Blood pressure is within normal range - Will hold antihypertensive medications at this point DLP - c/w Simvastatin DM2 - Patient reports that she only has half the pancreas; but was diagnosed with diabetes in her 40s - Patient has been on an insulin pump as an outpatient - Given patients poor oral intake, will transition the patient had an insulin sliding scale while inpatient - c/w Insulin Pump Neuropathy - c/w Gabapentin Gout - c/w Allopurinol Arthritis - c/w Tylenol Morbid obesity - BMI 48.1 - Complicating medical care GERD - c/w Protonix DVT prophylaxis - c/w TEDs / Sequentials (re: Thrombocytopenia) VS,Fishbone, I+O VS, Fishbone, I+O Laboratory Tests 07/18/19 06:00 Red Blood Count 3.55 L, Mean Corpuscular Volume 92.7, Mean Corpuscular Hemoglobin 30.1, Mean Corpuscular Hemoglobin Concent 32.5, Red Cell Distribution Width 15.2 H, Neutrophils (%) (Auto) 86.1 H, Lymphocytes (%) (Auto) 6.2 L, Monocytes (%) (Auto) 5.6 H, Eosinophils (%) (Auto) 0.0, Basophils (%) (Auto) 0.2, Neutrophils # (Auto) 9.8 H, Lymphocytes # (Auto) 0.7 L, Monocytes # (Auto) 0.6, Eosinophils # (Auto) 0.0, Basophils # (Auto) 0.0, Calcium Level 8.4 L, Aspartate Amino Transf (AST/SGOT) 49 H, Alanine Aminotransferase (ALT/SGPT) 86 H, Alkaline Phosphatase 224 H, Total Bilirubin 0.7, Total Protein 7.0, Albumin 2.3 L Vital Signs Date Time Temp Pulse Resp B/P (MAP) Pulse Ox O2 Delivery O2 Flow Rate FiO2 07/18/19 08:00 96.1 80 18 135/60 (85) 97 07/16/19 11:54 Room Air I&O- Last 24 Hours up to 6 AM 07/18/19 06:00 Intake Total 5100 ml Output Total 2935 ml Balance 2165 ml VIVIAN BRITTON MD Jul 18, 2019 12:12
[2019-07-18 13:06] LABS: INR 1.03; PROTHROMBIN TIME 13.2 SECONDS (11.8-14.0)
[2019-07-18] MEDS: ACETAMINOPHEN TAB 650MG DOSE (2X325MG) PO PRN ×2 (15:49→23:03)
[2019-07-18 16:00] VITALS: BP 139/66
[2019-07-18 20:00] VITALS: BP 134/66
[2019-07-18] MEDS: MULTIVITAMINS/MINERALS THERAP 1 TAB PO SCH (20:17)
[2019-07-18] MEDS: ASPIRIN 81 MG ENTERIC TAB PO SCH (20:17)
[2019-07-18] MEDS: GABAPENTIN 300 MG CAP PO SCH (20:17)
[2019-07-18] MEDS: SIMVASTATIN 20 MG TAB PO SCH (20:17)
[2019-07-19 01:00] VITALS: BP 152/70
[2019-07-19 06:00] VITALS: BP 149/72
[2019-07-19 06:18] LABS: BASO % 0.3 % (0.0-1.0); EOS # 0.1 10^3/uL (0.0-0.5); EOS % 0.8 % (0.0-3.0); HEMATOCRIT 31.4 % (36.0-47.0); HEMOGLOBIN 10.2 g/dl (12.0-15.5); LYMPH # 0.9 10^3/uL (1.5-5.0); MEAN CORPUSCULAR HEMOGLOBIN 30.2 pg (27.0-33.0); MEAN CORPUSCULAR HGB CONC 32.5 g/dl (32.0-36.5); MEAN CORPUSCULAR VOLUME 92.9 fl (80.0-96.0); MONO # 0.5 10^3/uL (0.0-0.8); MONO % 6.7 % (0.0-5.0); NEUTROPHILS # 6.1 10^3/uL (1.5-8.5); PLATELET COUNT, AUTOMATED 100 10^3/uL (150-450); RED BLOOD COUNT 3.38 10^6/uL (4.00-5.40); WHITE BLOOD COUNT 7.8 10^3/uL (4.0-10.0)
[2019-07-19 06:42] LABS: ALBUMIN 2.1 GM/DL (3.2-5.2); BILIRUBIN,TOTAL 0.5 MG/DL (0.2-1.0); CALCIUM LEVEL 8.5 MG/DL (8.8-10.2); CREATININE FOR GFR 2.06 MG/DL (0.55-1.30); GLOMERULAR FILTRATION RATE 25.6 (>45); MAGNESIUM LEVEL 2.9 MG/DL (1.8-2.4); POTASSIUM SERUM 4.6 MEQ/L (3.5-5.1); TOTAL PROTEIN 6.5 GM/DL (6.4-8.2)
[2019-07-19] MEDS: CEFDINIR 300 MG CAP (OMNICEF) PO SCH (08:33)
[2019-07-19] MEDS: ALLOPURINOL 100 MG TAB PO SCH (08:33)
[2019-07-19] MEDS: PANTOPRAZOLE 40MG TAB (PROTONIX) PO SCH (08:33)
[2019-07-19] MEDS: MAGNESIUM OXIDE 400 MG TAB (MAG-OX) PO SCH (08:49)
[2019-07-19] MEDS ORDERED: CEFD300CAP PO (10:13)
--- NOTE | 2019-07-19 12:44 | DS.PDOC ---
Discharge Summary General Date of Admission Jul 16, 2019 at 10:18 Date of Discharge 07/19/2019 Discharge Summary PROCEDURES PERFORMED DURING STAY: [None]. ADMITTING DIAGNOSES / DISCHARGE DIAGNOSES: Sepsis - 2/2 E. Coli bacteremia - likely 2/2 UTI / Pyelonephritis s/p CALE on CKD3 - likely 2/2 pre-renal etiology Thrombocytopenia - possibly 2/2 sepsis, possibly 2/2 cirrhosis Elevated liver enzymes Chronic Diastolic CHF, EF unknown HTN DLP IDDM2 Neuropathy Gout Arthritis Morbid obesity GERD DVT prophylaxis COMPLICATIONS/CHIEF COMPLAINT: Left sided abdominal pain / Fever / Chills HISTORY OF PRESENT ILLNESS: Patient is a 69-year-old female with a PMHx of CHF?, HTN, DLP, DM2, Congenitally atrophic right kidney, CKD3, Neuropathy, Gout, Arthritis and GERD who presented to the emergency room with complaints of fevers and chills. Patient has reported that she began to experience fevers and chills on Wednesday she noted that she had associated left-sided abdominal/back pain. Patient repor yelena the pain as 8-9/10, reported as a constant burning sensation. Reported that she has had a fever of 101F at home and persistent chills. Patient did report taking Tylenol 4:00 this morning. Patient was admitted to hospitalist service for suspected pyelonephritis. HOSPITAL COURSE: Sepsis - 2/2 E. Coli bacteremia - likely 2/2 UTI / Pyelonephritis - Patient has been experiencing fevers and chills since Wednesday associated with left-sided flank pain - Physical without any abdominal tenderness - Has been afebrile for >48 hours - s/p Leukocytosis; s/p Lactic acidosis - Urinalysis is consistent with urinary tract infection - Blood cultures 07/16: E. Coli; Blood cultures 07/17: Negative at 24 hours, Urine culture 07/16: Contaminated - CT ab/pel 07/16: 1. Severely atrophic right kidney likely congenital. 2. Nonspecific mild left perinephric stranding as well as stranding in the region of the renal hilum. No obstructing stones or hydronephrosis seen. Correlate clinically for pyelonephritis. 3. Cirrhotic liver. 4. Small amount of layering milk of calcium versus gallstones with no CT evidence of cholecystitis. 5. Mild fusiform short segment aneurysmal dilatation of the infrarenal aorta measuring up to 3 cm. 6. 3.2 x 3.1 cm periumbilical fat-containing. - c/w IV fluid hydration - will discontinue within 12 hours - c/w Cefdinir; s/p ceftriaxone (Antibiotic day #4) s/p CALE on CKD3 - likely 2/2 pre-renal etiology - Hx of Congenitally atrophic right kidney - Baseline Cr of 1.1-1.7; continues to approach baseline - Will avoid nephrotoxic medications - Will DC IV fluid hydration; Patient continues to take in fluid appropriately - Patient follows with Dr. Garcia in [place] Thrombocytopenia - possibly 2/2 sepsis, possibly 2/2 cirrhosis - Imaging his indicated possibility of cirrhosis - No evidence of bleeding - Will continue to monitor counts Elevated liver enzymes - Appears to be trending down - Hepatitis profile from 02/2016 was negative; again on 07/16 - Imaging was consistent with cirrhosis - Will continue to monitor levels - Patient follows with a [facility] in [place] Chronic Diastolic CHF, EF unknown - There does not appear to be any signs of fluid overload - ECHO 07/17: EF 65%, G1DD, Mild Mitral / Tricuspid Insufficiency, - Continue to hold torsemide and spironolactone - c/w adjusted rate of IV fluid hydration HTN - Blood pressure is within normal range - Will resume BP medications on discharge DLP - c/w Simvastatin IDDM2 - Patient reports that she only has half the pancreas; but was diagnosed with diabetes in her 40s - s/p ISS - c/w Insulin Pump as per outpatient protocol Neuropathy - c/w Gabapentin Gout - c/w Allopurinol Arthritis - c/w Tylenol Morbid obesity - BMI 48.1 - Complicating medical care GERD - c/w Protonix DVT prophylaxis - c/w TEDs / Sequentials (re: Thrombocytopenia) DISCHARGE MEDICATIONS: Please see below. ALLERGIES: Please see below. PHYSICAL EXAMINATION ON DISCHARGE: Vitals (See below) General: Lying in bed, no acute distress, comfortable, AAOx3 HEENT: NC, AT CVS: +S1S2 Lungs: Fair air entry b/l, no appreciable rhonchi or wheezing, no significant crackles appreciated Abdomen: Soft, ND, no tenderness appreciated on palpation Extremities: No evidence of LE edema , - Calf tenderness LABORATORY DATA: Please see below. ACTIVITY: [As tolerated]. DISCHARGE PLAN: Follow up with Dr. Martha Garcia within 7 days Remain compliant with treatment plan and medications Return to the ER if you experience any problems DISPOSITION: Home DISCHARGE CONDITION: [Stable]. TIME SPENT ON DISCHARGE: 35 minutes Vital Signs/I&Os Vital Signs Date Time Temp Pulse Resp B/P (MAP) Pulse Ox O2 Delivery O2 Flow Rate FiO2 07/19/19 06:00 97.9 80 17 149/72 (97) 98 07/16/19 11:54 Room Air I&O- Last 24 Hours up to 6 AM 07/19/19 06:00 Intake Total 4760 ml Output Total 2145 ml Balance 2615 ml Laboratory Data Labs 24H Laboratory Tests 2 07/18/19 13:32: Bedside Glucose (Misc Panel) 391H 07/18/19 18:04: Bedside Glucose (Misc Panel) 274H 07/18/19 20:29: Bedside Glucose (Misc Panel) 284H 07/19/19 05:25: Immature Granulocyte % (Auto) 1.2, White Blood Count 7.8, Red Blood Count 3.38L, Hemoglobin 10.2L, Hematocrit 31.4L, Mean Corpuscular Volume 92.9, Mean Corpuscular Hemoglobin 30.2, Mean Corpuscular Hemoglobin Concent 32.5, Red Cell Distribution Width 15.4H, Platelet Count 100L, Neutrophils (%) (Auto) 79.0H, Lymphocytes (%) (Auto) 12.0L, Monocytes (%) (Auto) 6.7H, Eosinophils (%) (Auto) 0.8, Basophils (%) (Auto) 0.3, Neutrophils # (Auto) 6.1, Lymphocytes # (Auto) 0.9L, Monocytes # (Auto) 0.5, Eosinophils # (Auto) 0.1, Basophils # (Auto) 0.0, Nucleated Red Blood Cells % (auto) 0.0, Anion Gap 8, Glomerular Filtration Rate 25.6L, Blood Urea Nitrogen 58H, Creatinine 2.06H, Sodium Level 139, Potassium Level 4.6, Chloride Level 110H, Carbon Dioxide Level 21, Calcium Level 8.5L, Aspartate Amino Transf (AST/SGOT) 49H, Alanine Aminotransferase (ALT/SGPT) 76, Alkaline Phosphatase 217H, Total Bilirubin 0.5, Total Protein 6.5, Albumin 2.1L, Magnesium Level 2.9H, Albumin/Globulin Ratio 0.48L 07/19/19 08:46: Bedside Glucose (Misc Panel) 124H 07/19/19 11:34: Bedside Glucose (Misc Panel) 192H CBC/BMP Laboratory Tests 07/19/19 05:25 Red Blood Count 3.38 L, Mean Corpuscular Volume 92.9, Mean Corpuscular Hemoglobin 30.2, Mean Corpuscular Hemoglobin Concent 32.5, Red Cell Distribution Width 15.4 H, Neutrophils (%) (Auto) 79.0 H, Lymphocytes (%) (Auto) 12.0 L, Monocytes (%) (Auto) 6.7 H, Eosinophils (%) (Auto) 0.8, Basophils (%) (Auto) 0.3, Neutrophils # (Auto) 6.1, Lymphocytes # (Auto) 0.9 L, Monocytes # (Auto) 0.5, Eosinophils # (Auto) 0.1, Basophils # (Auto) 0.0, Calcium Level 8.5 L, Aspartate Amino Transf (AST/SGOT) 49 H, Alanine Aminotransferase (ALT/SGPT) 76, Alkaline Phosphatase 217 H, Total Bilirubin 0.5, Total Protein 6.5, Albumin 2.1 L FSBS Laboratory Tests Test 07/18/19 13:32 07/18/19 18:04 07/18/19 20:29 07/19/19 08:46 Range/Units Bedside Glucose (Misc Panel) 391 274 284 124 80-115 MG/DL Test 07/19/19 11:34 Range/Units Bedside Glucose (Misc Panel) 192 80-115 MG/DL Microbiology Microbiology 07/17/19 Blood Culture - Preliminary, Resulted No Growth after 48 hours. All Specime... 07/16/19 Urine Culture - Final, Complete 07/16/19 Blood Culture - Preliminary, Resulted No Growth after 72 hours. All specime... 07/16/19 Blood Culture - Final, Complete Escherichia Coli Discharge Medications Scheduled Allopurinol (Allopurinol) 100 Mg Tablet, 100 MG PO BID, (Reported) AM AND HS Amlodipine Besylate (Amlodipine Besylate) 10 Mg Tab, 10 MG PO DAILY, (Reported) Aspirin (Aspir 81) 81 Mg Tab, 81 MG PO QHS, (Reported) Cefdinir (Cefdinir) 300 Mg Capsule, 300 MG PO DAILY Gabapentin (Gabapentin) 100 Mg Capsule, 300 MG PO QHS, (Reported) Lovastatin (Lovastatin) 20 Mg Tablet, 20 MG PO QHS, (Reported) Magnesium Oxide (Magnesium Oxide) 500 Mg Tab, 500 MG PO BID, (Reported) Metoprolol Succinate (Metoprolol Succinate) 50 Mg Tab, 50 MG PO QHS, (Reported) Multivitamin (Multivitamins) 1 Each Capsule, 1 CAP PO QHS, (Reported) Pantoprazole Sodium (Protonix) 40 Mg Tab, 40 MG PO DAILY, (Reported) Potassium Chloride (K-Tab ER) 10 Meq Tablet.er, 10 MEQ PO QHS, (Reported) 30 MEQ TOTAL PER DAY Potassium Chloride (K-Tab ER) 10 Meq Tablet.er, 20 MEQ PO DAILY, (Reported) 30 MEQ TOTAL PER DAY Spironolactone (Spironolactone) 50 Mg Tablet, 50 MG PO DAILY, (Reported) Torsemide (Torsemide) 20 Mg Tablet, 40 MG PO QHS, (Reported) 90 MG TOTAL PER DAY Torsemide (Torsemide) 100 Mg Tablet, 50 MG PO DAILY, (Reported) 90 MG TOTAL PER DAY Scheduled PRN Acetaminophen (Tylenol Extra Strength) 500 Mg Tablet, 1,000 MG PO Q6H PRN for PAIN / FEVER, (Reported) Cetirizine HCl (Cetirizine HCl) 10 Mg Tab.chew, 1 TAB PO DAILY PRN for ALLERGY SYMPTOMS, (Reported) Insulin Human Lispro (Novolog) 100 U/Ml Inj, 1 DOSE SC WM PRN for CARB INTAKE, (Reported) USES INSULIN PUMP Allergies Coded Allergies: Sulfa (Sulfonamide Antibiotics) (Verified Allergy, Intermediate, HIVES, 07/16/19) tetracycline (Verified Allergy, Intermediate, HIVES, 07/16/19) bee venom protein (honey bee) (Verified Allergy, Unknown, SWELLING, 07/16/19) VIVIAN BRITTON MD Jul 19, 2019 12:44
== END 2019-07-19 13:40 | disposition home or self-care (01) | DRG 872 ==
LOC: M ED 05:44 → M ED INP 10:18 → M PCU 12:03 → M MSPAV 07-19 00:56
PROVIDERS: ADMIT Internal Medicine; ATTEND Internal Medicine
DX: A41.51 Sepsis due to Escherichia coli [E. coli] (principal); N10 Acute pyelonephritis; Q60.4 Renal hypoplasia, bilateral; I50.32 Chronic diastolic (congestive) heart failure; Z68.42 Body mass index [BMI] 45.0-49.9, adult; I13.0 Hypertensive heart and chronic kidney disease with heart failure and stage 1 through stage 4 chronic kidney disease, or unspecified chronic kidney disease; E78.5 Hyperlipidemia, unspecified; E11.22 Type 2 diabetes mellitus with diabetic chronic kidney disease; N18.3 Chronic kidney disease, stage 3 (moderate); D69.6 Thrombocytopenia, unspecified; E66.01 Morbid (severe) obesity due to excess calories; E11.40 Type 2 diabetes mellitus with diabetic neuropathy, unspecified; M10.9 Gout, unspecified; M19.90 Unspecified osteoarthritis, unspecified site; K21.9 Gastro-esophageal reflux disease without esophagitis; Z79.82 Long term (current) use of aspirin; Z79.899 Other long term (current) drug therapy; Z88.2 Allergy status to sulfonamides; Z88.1 Allergy status to other antibiotic agents; Z91.030 Bee allergy status; Z87.891 Personal history of nicotine dependence; Z79.4 Long term (current) use of insulin

== ENCOUNTER → 2020-03-19 | Outpatient (CLI) | payer MEDICARE, OTHER ==
[~2020-03-19] MED LIST changes: +ACET-897 PO; +CEFD300CAP PO; +CETI10CH PO; +GABA-1171 PO; +K-TA10TA PO; +K-TA10TA2 PO; +LOVA20TA2 PO; +MULTCAP PO; +SPIR50TA4 PO; +TORS100T PO; +TORS20TA2 PO
== END ==
LOC: M LABSMTC 12:30
PROVIDERS: ATTEND Family Medicine
DX: Z11.59 Encounter for screening for other viral diseases (principal)
CPT/HCPCS: C9803; U0003

== ENCOUNTER → 2020-03-25 | Outpatient (CLI) | payer MEDICARE, OTHER ==
--- NOTE | 2020-03-26 03:05 | REP ---
REASON: Cough. COMPARISON: Portable exam obtained 07/16/2019. There is cardiomegaly. The lung arcos are clear. The pleural angles are sharp. The osseous structures are stable and intact. IMPRESSION: Cardiomegaly without evidence of acute cardiopulmonary disease. Electronically Signed by Hakan Chen DO 03/26/2020 11:11 A
== END ==
LOC: M WUC 13:36
PROVIDERS: ATTEND Internal Medicine Nephrology
DX: R05 Cough (principal); I51.7 Cardiomegaly

== ENCOUNTER → 2020-04-08 | Outpatient (REF) | payer MEDICARE, OTHER | LOC: M LAB REF 15:47 | PROVIDERS: ATTEND Physician Assistant | DX: N39.0 Urinary tract infection, site not specified (principal) ==

== ENCOUNTER → 2020-05-08 | Outpatient (CLI) | payer MEDICARE, OTHER ==
[~2020-05-08] MED LIST changes: +ALPH200C6 PO; -AMLO10TA5 PO; +AMLO1TAB25 PO; -ASPI81TA85 PO; +ASPI81TA86 PO; +CIPR-249 PO
--- NOTE | 2020-05-08 11:10 | REP ---
Clinical: Right upper quadrant pain. History of cirrhosis. Comparison: 08/12/2018. Technique: Real time sarmiento scale and color Doppler evaluation using curved array transducer. Findings: Liver is mildly enlarged and measures 19 cm in craniocaudal length without focal hepatic lesion identified. The pancreas is incompletely evaluated but visualized portions appear normal. The gallbladder demonstrates small amount of layering sludge/gravel without wall thickening or pericholecystic fluid. No biliary ductal dilatation is appreciated and the common bile duct measures 3.6 mm diameter. Right kidney is not visualized and consistent with the patient's given history of absent right kidney. No ascites in the visualized right upper quadrant. Color Doppler evaluation demonstrates normal flow characteristics through the main portal vein with a maximal velocity at 16 cm/sec which measures approximately 16 mm maximal diameter. Impression: 1. Mild hepatomegaly without focal hepatic lesion identified. 2. Cholelithiasis. Electronically Signed by Juan Juárez MD 05/08/2020 11:01 A
== END ==
LOC: M PLAIMG 08:35
PROVIDERS: ATTEND Internal Medicine Gastroenterology
DX: K80.20 Calculus of gallbladder without cholecystitis without obstruction (principal); K74.60 Unspecified cirrhosis of liver; R10.11 Right upper quadrant pain; K44.9 Diaphragmatic hernia without obstruction or gangrene; R94.5 Abnormal results of liver function studies; R16.0 Hepatomegaly, not elsewhere classified; K75.81 Nonalcoholic steatohepatitis (NASH); Q45.3 Other congenital malformations of pancreas and pancreatic duct; Z12.11 Encounter for screening for malignant neoplasm of colon

== ENCOUNTER 2020-07-14 13:43 | Emergency (ER) | payer MEDICARE, OTHER ==
[~2020-07-14] VITALS: Ht 160 cm; Wt 105.8 kg
[~2020-07-14 13:43] MED LIST changes: -ALPH200C6 PO; -CIPR-249 PO
[2020-07-14] MEDS ORDERED: ALPH200C6 PO (13:55)
[2020-07-14 14:15] LABS: BASO % 0.7 % (0.0-1.0); EOS # 0.2 10^3/uL (0.0-0.5); HEMATOCRIT 40.4 % (36.0-47.0); HEMOGLOBIN 13.2 g/dl (12.0-15.5); LYMPH # 1.4 10^3/uL (1.5-5.0); LYMPH % 24.6 % (24.0-44.0); MEAN CORPUSCULAR HEMOGLOBIN 32.6 pg (27.0-33.0); MEAN CORPUSCULAR HGB CONC 32.7 g/dl (32.0-36.5); MEAN CORPUSCULAR VOLUME 99.8 fl (80.0-96.0); MONO # 0.5 10^3/uL (0.0-0.8); MONO % 9.5 % (0.0-5.0); NEUTROPHILS # 3.5 10^3/uL (1.5-8.5); PLATELET COUNT, AUTOMATED 162 10^3/uL (150-450); RED BLOOD COUNT 4.05 10^6/uL (4.00-5.40); WHITE BLOOD COUNT 5.7 10^3/uL (4.0-10.0)
[2020-07-14 14:40] LABS: ALBUMIN 3.1 GM/DL (3.2-5.2); BILIRUBIN,DIRECT 0.5 MG/DL (0.0-0.2); BILIRUBIN,TOTAL 0.8 MG/DL (0.2-1.0); CALCIUM LEVEL 9.2 MG/DL (8.8-10.2); CREATININE FOR GFR 2.25 MG/DL (0.55-1.30); POTASSIUM SERUM 4.6 MEQ/L (3.5-5.1); TOTAL PROTEIN 7.9 GM/DL (6.4-8.2)
[2020-07-14] MEDS ORDERED: CIPR-249 PO (15:08)
[2020-07-14] MEDS ORDERED: CIPROFLOXACIN 500MG TABLET PO ONE (15:15)
[2020-07-14 15:17] VITALS: BP 142/71
--- NOTE | 2020-07-14 15:17 | REPVR ---
PROCEDURE INFORMATION: Exam: US Retroperitoneal Limited, Kidneys Exam date and time: 07/14/2020 2:55 PM Age: 70 years old Clinical indication: Pain; Other: Left flank; Additional info: Left flank pain TECHNIQUE: Imaging protocol: Real-time ultrasound of the retroperitoneum with image documentation. Examination was focused on the kidneys. COMPARISON: LIVER US 05/08/2020 9:[address] 07/16/2019 FINDINGS: Right kidney: Right kidney is severely atrophied and not well visualized. Left kidney: The left kidney measures 11.7 cm. Normal parenchymal echogenicity and cortical thickness. No hydronephrosis. IMPRESSION: 1. Normal appearing left kidney with no hydronephrosis. 2. Severe atrophy of the right kidney. Electronically signed by: Jesus Mcfadden On 07/14/2020 15:17:09 PM
== END 2020-07-14 15:19 | disposition home or self-care (01) ==
LOC: M ED 13:43
DX: N39.0 Urinary tract infection, site not specified (principal); Z79.82 Long term (current) use of aspirin; Z79.899 Other long term (current) drug therapy; Z88.1 Allergy status to other antibiotic agents; Z88.2 Allergy status to sulfonamides; Z91.030 Bee allergy status

== ENCOUNTER → 2021-01-17 | Outpatient (CLI) | payer MEDICARE, OTHER ==
[~2021-01-17] MED LIST changes: +ALPH200C6 PO; +CIPR-249 PO
--- NOTE | 2021-01-17 10:17 | REP ---
INDICATION: CIRRHOSIS- LABS FIRST. COMPARISON: 05/08/2020. TECHNIQUE: Multiple sonographic images of the abdominal right upper quadrant. FINDINGS: There are multiple small gallbladder calculi. There is no gallbladder wall thickening or pericholecystic fluid. There is no intrahepatic or extrahepatic biliary duct dilatation. The common biliary duct measures 4 mm in diameter. The hepatic parenchyma is diffusely coarsened in the hepatic margin is scalloped. These findings are compatible with diffuse hepatocellular disease such as cirrhosis. There are no hepatic masses or cysts. No ascites. The visualized areas of the pancreas are unremarkable. Patient reportedly has congenitally absent right kidney. There is no visible right kidney, consistent with this clinical history. IMPRESSION: The hepatic echotexture and margin are compatible with cirrhosis. There are no hepatic masses or cysts. There is no ascites. Cholelithiasis. There is no ultrasound evidence of acute cholecystitis. The right kidney is congenitally absent. The visualized portions of the pancreas are unremarkable. <Electronically signed by Celso Vergara > 01/17/21 [id number]
[2021-01-17 11:02] LABS: ALBUMIN 2.7 GM/DL (3.2-5.2); BILIRUBIN,DIRECT 0.7 MG/DL (0.0-0.2); BILIRUBIN,TOTAL 0.8 MG/DL (0.2-1.0); CALCIUM LEVEL 9.4 MG/DL (8.8-10.2); CREATININE FOR GFR 2.42 MG/DL (0.55-1.30); GLOMERULAR FILTRATION RATE 21.2 (>45); MAGNESIUM LEVEL 2.6 MG/DL (1.8-2.4); POTASSIUM SERUM 4.2 MEQ/L (3.5-5.1); TOTAL PROTEIN 7.5 GM/DL (6.4-8.2)
[2021-01-17 11:23] LABS: TOTAL 25(OH) VITAMIN D 32.3 NG/ML (30.0-100.0)
== END ==
LOC: M RAD 08:53
PROVIDERS: ATTEND Nurse Practitioner Family
DX: K74.60 Unspecified cirrhosis of liver (principal)

== ENCOUNTER → 2021-03-24 | Outpatient (CLI) | payer MEDICARE, OTHER ==
--- NOTE | 2021-03-24 15:35 | REP ---
INDICATION: COUGH. COMPARISON: 03/25/2020 the latest prior FINDINGS: The cardiomediastinal silhouette and lung arcos are unchanged. There is mild cardiomegaly status quo. The lung arcos are clear. No acute patchy parenchymal opacities or pleural effusions have developed. There is no significant change in the appearance of the imaged osseous structures. IMPRESSION: No acute cardiopulmonary disease or significant change compared to the prior exam. <Electronically signed by Hakan Chen > 03/24/21 [id number]
== END ==
LOC: M WUC 13:25
PROVIDERS: ATTEND Internal Medicine Nephrology
DX: I51.7 Cardiomegaly (principal)

== ENCOUNTER → 2021-05-21 | Outpatient (CLI) | payer MEDICARE, OTHER ==
--- NOTE | 2021-05-21 16:01 | REP ---
INDICATION: GOITER. COMPARISON: None. TECHNIQUE: Bilateral thyroid ultrasound FINDINGS: The right lobe measures 4.2 x 2.7 x 1.5 cm and the left lobe measures 4.3 x 1.6 x 1.3 cm. The isthmus measures 9 mm. The thyroid parenchymal echo pattern is somewhat heterogenous. In the isthmus there is a tiny 3 mm sized cyst. Two tiny nodules are seen in the left lobe 1 midpole region measuring 5 mm and the other inferior pole measuring 5 mm. IMPRESSION: As above. Follow-up is suggested. <Electronically signed by Hakan Chen > 05/21/21 [id number]
== END ==
LOC: M RAD 14:10
PROVIDERS: ATTEND Internal Medicine Nephrology
DX: E04.9 Nontoxic goiter, unspecified (principal)

== ENCOUNTER 2021-06-15 14:20 | Inpatient (IN) | payer MEDICARE, OTHER ==
[~2021-06-15] VITALS: Ht 157.5 cm; Wt 101.7 kg
[2021-06-15] MEDS ORDERED: NS 500 ML IV ONE (14:55)
[2021-06-15] MEDS ORDERED: SODIUM CHLORIDE 0.9% 1000ML IV ONE (15:00)
[2021-06-15] MEDS ORDERED: BOOSTRIX/ADACEL VACCINE (DIPHTH/PERTUSS/ACELL/TETANUS) 0.5ML SYR IM ONE (15:15)
--- NOTE | 2021-06-15 15:39 | REP ---
INDICATION: DKA COMPARISON: None TECHNIQUE: AP, lateral, bilateral oblique views right wrist. FINDINGS: The carpal bones, surrounding osseous structures, soft tissues, and joint spaces are essentially age-appropriate. There is no evidence for acute fracture or dislocation. No subcutaneous emphysema or radiodense foreign body. IMPRESSION: No evidence for acute fracture or dislocation. <Electronically signed by Juan Juárez > 06/15/21 1534
--- NOTE | 2021-06-15 15:40 | REP ---
INDICATION: DKA COMPARISON: None. TECHNIQUE: AP and lateral right humerus FINDINGS: No acute fracture or dislocation. Prior orthopedic repair at the humeral head noted. IMPRESSION: . No acute fracture or dislocation. <Electronically signed by Juan Juárez > 06/15/21 [id number]
--- NOTE | 2021-06-15 15:41 | REP ---
INDICATION: DKA COMPARISON: None. TECHNIQUE: AP, lateral, bilateral oblique views left foot. FINDINGS: Generalized osteopenia and age-related degenerative changes. No obvious acute fracture or dislocation. Soft tissue swelling noted without subcutaneous emphysema or foreign body. IMPRESSION: Swelling and generalized degenerative changes. No acute fracture or dislocation. <Electronically signed by Juan Juárez > 06/15/21 1535
--- NOTE | 2021-06-15 15:42 | REP ---
INDICATION: DKA COMPARISON: None. TECHNIQUE: AP, lateral, bilateral oblique views. FINDINGS: Generalized osteopenia and age-related degenerative changes are appreciated. Evidence for peripheral vascular disease. Soft tissue swelling noted. No acute fracture or dislocation identified. IMPRESSION: Osteopenia and generalized degenerative changes. Swelling. No obvious acute fracture. <Electronically signed by Juan Juárez > 06/15/21 [id number]
--- NOTE | 2021-06-15 15:43 | REP ---
INDICATION: DKA COMPARISON: 03/25/2020 TECHNIQUE: Portable AP view of the chest FINDINGS: The mediastinum and cardiac silhouette are stable and within normal limits for portable technique. The lung arcos are clear without acute consolidation, effusion, or pneumothorax. Skeletal structures are intact. IMPRESSION: No acute cardiopulmonary process appreciated. <Electronically signed by Juan Juárez > 06/15/21 0049
--- NOTE | 2021-06-15 15:45 | REP ---
INDICATION: DKA COMPARISON: None. TECHNIQUE: AP, lateral, bilateral oblique and sunrise views right and left knee. FINDINGS: Right knee demonstrates small osteophyte formation along with increased sclerosis to the medial tibial plateau and associated joint space narrowing. No acute fracture or dislocation. No obvious effusion. Left knee demonstrates minimal age-related changes. No acute fracture or dislocation. No obvious effusion. IMPRESSION: Degenerative changes (right greater than left). <Electronically signed by Juan Juárez > 06/15/21 [id number]
--- NOTE | 2021-06-15 15:47 | REP ---
INDICATION: DKA COMPARISON: None. TECHNIQUE: Axial noncontrast images from the skull base to the thoracic inlet with coronal reformations. This CT examination was performed using the following dose reduction techniques: Automated exposure control, adjustment of mA and/or kv according to the patient's size, and use of iterative reconstruction technique. FINDINGS: Age-related atrophy with periventricular leukomalacia and microvascular ischemic changes are appreciated. The ventricles and sulci are symmetric. Hyde-white differentiation is maintained. There is no evidence for acute intracranial hemorrhage, mass/mass effect, pathology or infarction. No extra-axial fluid collection. Calvarium is intact. Paranasal sinuses and mastoid air cells are clear. IMPRESSION: Age-related atrophy and microvascular ischemic changes. No acute intracranial hemorrhage, infarction, or mass/mass effect. <Electronically signed by Juan Juárez > 06/15/21 [id number]
--- NOTE | 2021-06-15 15:48 | REP ---
INDICATION: DKA COMPARISON: None. TECHNIQUE: Axial noncontrast images from the skull base to the thoracic inlet with coronal and sagittal re-formations This CT examination was performed using the following dose reduction techniques: Automated exposure control, adjustment of mA and/or kv according to the patient's size, and use of iterative reconstruction technique. FINDINGS: Anterior fixation at C5-6. Alignment and lordosis maintained. Moderate multilevel degenerative changes include endplate sclerosis, osteophytosis, disc space narrowing, and facet hypertrophy. There is no evidence for acute fracture/compression injury or subluxation. Posterior elements and spinous processes are grossly intact. Spinal canal appears patent. Paravertebral soft tissues are within normal limits. IMPRESSION: Moderate multilevel degenerative changes. Previous anterior fixation at C5-6. No evidence for acute pathology or trauma/injury. <Electronically signed by Juan Juárez > 06/15/21 [id number]
[2021-06-15 16:28] LABS: VENOUS BASE EXCESS 0.9 (-2.0-2.0); VENOUS HCO3 24.9 MEQ/L (23.0-27.0); VENOUS O2 SATURATION 97.8 % (60.0-80.0); VENOUS PARTIAL PRESSURE CO2 37.1 mmHg (38.0-50.0); VENOUS PARTIAL PRESSURE O2 105.5 mmHg (30.0-50.0); VENOUS PH 7.444 UNITS (7.330-7.430); VENOUS STANDARD HCO3 25.3 MEQ/L
[2021-06-15] MEDS ORDERED: GABA-283 PO (16:30)
[2021-06-15] MEDS ORDERED: PANT40TA29 PO (16:30)
[2021-06-15] MEDS ORDERED: FERR240T PO (16:30)
[2021-06-15] MEDS ORDERED: METO25TA PO (16:30)
[2021-06-15] MEDS ORDERED: TORS100T PO (16:30)
[2021-06-15] MEDS ORDERED: HYDR-3363 PO (16:30)
[2021-06-15 16:32] LABS: BASO # 0.1 10^3/uL (0.0-0.2); BASO % 0.8 % (0.0-1.0); EOS # 0.3 10^3/uL (0.0-0.5); EOS % 5.1 % (0.0-3.0); HEMOGLOBIN 9.8 g/dl (12.0-15.5); LYMPH # 1.3 10^3/uL (1.5-5.0); LYMPH % 19.8 % (24.0-44.0); MEAN CORPUSCULAR HEMOGLOBIN 29.7 pg (27.0-33.0); MEAN CORPUSCULAR HGB CONC 31.6 g/dl (32.0-36.5); MEAN CORPUSCULAR VOLUME 93.9 fl (80.0-96.0); MONO # 0.5 10^3/uL (0.0-0.8); MONO % 8.4 % (2.0-8.0); NEUTROPHILS # 4.2 10^3/uL (1.5-8.5); NEUTROPHILS % 65.3 % (36.0-66.0); PLATELET COUNT, AUTOMATED 192 10^3/uL (150-450); WHITE BLOOD COUNT 6.4 10^3/uL (4.0-10.0)
[2021-06-15 16:50] LABS: HEMOGLOBIN A1c 7.8 %
[2021-06-15 17:01] LABS: OSMOLALITY SERUM 335 MOSM/KG (280-301)
[2021-06-15 17:09] LABS: BLOOD UREA NITROGEN 91 MG/DL (7-18); CALCIUM LEVEL 9.2 MG/DL (8.8-10.2); CARBON DIOXIDE LEVEL 27 MEQ/L (21-32); CHLORIDE LEVEL 95 MEQ/L (98-107); CREATININE FOR GFR 2.81 MG/DL (0.55-1.30); GLOMERULAR FILTRATION RATE 17.8 (>45); GLUCOSE, FASTING 522 MG/DL (70-100); PHOSPHORUS LEVEL 3.9 MG/DL (2.5-4.9); POTASSIUM SERUM 5.4 MEQ/L (3.5-5.1); SODIUM LEVEL 130 MEQ/L (136-145)
[2021-06-15 17:10] LABS: ALBUMIN 2.7 GM/DL (3.2-5.2); ALT/SGPT 56 U/L (12-78); BILIRUBIN,DIRECT 0.7 MG/DL (0.0-0.2); BILIRUBIN,TOTAL 1.3 MG/DL (0.2-1.0); CK-MB VALUE MASS 1.7 NG/ML (<3.6); CPK CREATINE PHOSPHOKINASE 99 U/L (26-192); LIPASE 285 U/L (73-393); MAGNESIUM LEVEL 2.5 MG/DL (1.8-2.4); MB/CK RELATIVE INDEX 1.72 (< OR =4); TOTAL PROTEIN 8.2 GM/DL (6.4-8.2); TROPONIN I < 0.02 NG/ML (< 0.10)
[2021-06-15] MEDS ORDERED: HumuLIN R (REGULAR) INSULIN (NovoLIN R) **100U/ML** PER UNIT IV ONE (17:15)
[2021-06-15 17:22] LABS: ACETONE/KETONE 2.06 MG/DL (<2.81)
[2021-06-15] MEDS ORDERED: PANTOPRAZOLE 40MG VIAL (C9113 PER 1) IV ONE (17:45)
[2021-06-15] MEDS ORDERED: GLUCAGON INJ 1MG VIAL SC PRN (17:45)
[2021-06-15] MEDS ORDERED: GLUCOSE 4GM CHEW TABLET PO PRN (17:45)
[2021-06-15] MEDS ORDERED: DEXTROSE 50% 50 ML SYRINGE IV PRN (17:45)
[2021-06-15] MEDS ORDERED: INSUH10VL SC (18:16)
[2021-06-15] MEDS ORDERED: FERR324T21 PO (18:16)
[2021-06-15] MEDS ORDERED: VITMTA PO (18:16)
[2021-06-15] MEDS ORDERED: ASPI81TA26 PO (18:16)
[2021-06-15] MEDS ORDERED: HOME MED LIST COMPLETE! XX SCH (18:20)
[2021-06-15 18:33] LABS: HEMATOCRIT 31.7 % (36.0-47.0); HEMOGLOBIN 9.9 g/dl (12.0-15.5); MEAN CORPUSCULAR HEMOGLOBIN 29.6 pg (27.0-33.0); MEAN CORPUSCULAR HGB CONC 31.2 g/dl (32.0-36.5); MEAN CORPUSCULAR VOLUME 94.6 fl (80.0-96.0); PLATELET COUNT, AUTOMATED 169 10^3/uL (150-450); RED BLOOD COUNT 3.35 10^6/uL (4.00-5.40); WHITE BLOOD COUNT 5.6 10^3/uL (4.0-10.0)
--- NOTE | 2021-06-15 18:43 | HPE ---
HISTORY AND PHYSICAL DATE OF ADMISSION: 06/15/2021 CHIEF COMPLAINT: Dizziness, anemia, diabetes out of control. HISTORY OF PRESENT ILLNESS: Nichol Lazcano is a 69-year-old with chronic kidney disease, type-2 diabetes now on insulin pump, iron-deficiency anemia with pending upper and lower endoscopy. She became lightheaded, weak, and fell today, did not have randall syncope but she did get dizzy and lightheaded. Radiographs are negative for fracture. She is found to be more anemic than her baseline and diabetes is out of control. She says her insulin pump has stopped working. Her cold press operator is Dr. Lopez in [place] and her lead housekeeper and primary care provider is Dr. Garcia in [place]. She does not have a local primary care provider. PAST MEDICAL HISTORY: She has chronic upper abdominal pain usually in her right upper quadrant. It is a little worse today. She is hypertensive but her blood pressure has been lower than usual over the last day or so with diastolic blood pressures in the 50s and she tends to be more symptomatic with low diastolic than systolic blood pressures. She has a history of atrophic right kidney with resultant chronic kidney disease, pancreatitis, diabetic nephropathy, history of gout and GERD. Recently had an iron infusion for iron-deficiency anemia. This took place last week. She had a heme-positive stool in the Emergency Room. It turns out she already has an upper and lower endoscopy scheduled by her primary care provider with Dr. Esther Hoffman's group in [place]. Denies any epistaxis, hematuria, or randall rectal bleeding. PAST SURGICAL HISTORY: Some type of spinal surgery in 1998, cervical spine in 2005, carpal tunnel release, right elbow surgery, ovarian cyst removal, tubal ligation, right knee surgery 2007, colonoscopy 2003, surgery on her right hand 2018, surgery right ankle, unspecified date. FAMILY HISTORY: Mother had a history of a breast tumor. Father, bladder cancer. Son has chronic kidney disease. SOCIAL HISTORY: She quit smoking many years ago. No alcohol. She lives alone in [place]. 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 REVIEW OF SYSTEMS: She notes polyuria, thirst and weakness. She denies any palpitations, chest pain, randall syncope. No fevers, chills, night sweats. ALLERGIES: SULFA, BEE VENOM PROTEIN, TETRACYCLINE. PHYSICAL EXAMINATION: VITAL SIGNS: Blood pressure 129/60, pulse 69, respirations 18, 95% O2 saturation. Afebrile. GENERAL APPEARANCE: Lying in bed, chronically ill-appearing. HEENT: Pupils equal, round, reactive to light. Tympanic membranes (TMs) and oropharynx benign. NECK: Supple. Thyroid is mildly enlarged, feels multinodular. LUNGS: Clear. HEART: Regular rate and rhythm. A 1/6 systolic ejection murmur. ABDOMEN: Soft, obese. She is tender in the right upper quadrant epigastric area. No guarding or rebound. No CVA tenderness. No dermatomal rash. EXTREMITIES: No clubbing, cyanosis. She has venous stasis dermatitis with trace peripheral edema. Pulses are decreased in the feet but still palpable. Decreased sensation to light touch in the feet. LABS: White count 6.4, hemoglobin 9.8 (her hemoglobin 07/14/2020 was 13.2. I do not know what her baseline hemoglobin is that led to the recent iron infusion). Platelets 192. Sodium 130, potassium 5.4, BUN 91, creatinine 2.8 (baseline creatinine is around 2.2). Glucose is 552. Hemoglobin A1c is 7.8%. Magnesium 2.5. Bilirubin 1.3. AST 95, alkaline phosphatase 375. She did have a LOPEZ FibroSURE score done on 01/17/2021 with her circulation tender that suggested cirrhosis with an F4 fibrosis stage and an S3 steatosis score. IMPRESSION AND PLAN: 1. Dizziness with near syncope probably related to the severe hyperglycemia as well as the anemia. She has heme-positive stool in the Emergency Room per report. We will do serial CBCs, put her on telemetry for 24 hours and run serial cardiac enzymes. It should be noted she had an echocardiogram in 2019 with an ejection fraction and aortic sclerosis without stenosis. 2. Diabetes, out of control. She says her insulin pump is malfunctioning. There is no endocrinology coverage available to reach over the weekend. We will call Dr. Lopez's office tomorrow. In the meantime we will turn off the insulin pump and put her on basal insulin with a sliding scale. 3. Iron-deficiency anemia. Serial CBCs have been ordered. She already had an iron infusion. Hemoglobin has bound from a few years ago but I do not know what her most recent hemoglobin is. She does not have randall active bleeding. She has a history of GERD. I have ordered some IV Protonix. She has upper and lower endoscopy already scheduled in [place]. Unless she has active bleeding, she should not need that during this admission. 4. Upper abdominal pain. CT of the abdomen and pelvis ordered. She has a history of pancreatitis and has cirrhosis suggest on a FibroSURE done just a few months ago. 5. Diabetic neuropathy. Continue her Gabapentin. 6. Chronic kidney disease with acute kidney injury. Her creatinine is up from baseline. She looks dry probably from the hyperglycemia. I have ordered some IV fluids. The hyponatremia looks like pseudohyponatremia related to the marked hyperglycemia. Serial electrolytes have been ordered. 7. Hypertension. Her blood pressure is lower than baseline. We will hold her amlodipine for now. We will continue beta villa therapy. Hold her diuretics. She is on spironolactone and torsemide as an outpatient as well as metolazone as needed. 8. History of gout. Continue allopurinol for prophylaxis.
[2021-06-15 18:48] LABS: INR 1.22; PROTHROMBIN TIME 15.8 SECONDS (12.7-14.5)
[2021-06-15 19:03] LABS: RSV AMPLIFICATION NEGATIVE (NEGATIVE)
--- NOTE | 2021-06-15 19:08 | REPVR ---
PROCEDURE INFORMATION: Exam: CT Abdomen And Pelvis Without Contrast Exam date and time: 06/15/2021 5:54 PM Age: 71 years old Clinical indication: Abdominal pain; Localized; Right upper quadrant (ruq); Additional info: Ruq pain, cirrhosis? TECHNIQUE: Imaging protocol: Computed tomography of the abdomen and pelvis without contrast. Radiation optimization: All CT scans at this facility use at least one of these dose optimization techniques: automated exposure control; mA and/or kV adjustment per patient size (includes targeted exams where dose is matched to clinical indication); or iterative reconstruction. COMPARISON: CT ABD PELVIS W/O CONTRAST 07/16/2019 7:44 AM FINDINGS: Liver: Liver surface is nodular. Gallbladder and bile ducts: Cholelithiasis. Pancreas: Normal. No ductal dilation. Spleen: Normal. No splenomegaly. Adrenal glands: Normal. No mass. Kidneys and ureters: Atrophy of the right kidney. Stomach and bowel: Unremarkable. No obstruction. No mucosal thickening. Appendix: No evidence of appendicitis. Intraperitoneal space: Unremarkable. No free air. No significant fluid collection. Vasculature: Atherosclerotic calcification of the abdominal aorta. Infrarenal abdominal aortic aneurysm measuring 3.1 cm. Lymph nodes: Unremarkable. No enlarged lymph nodes. Urinary bladder: Unremarkable as visualized. Reproductive: Unremarkable as visualized. Bones/joints: Unremarkable. No acute fracture. Soft tissues: Umbilical hernia containing fat. IMPRESSION: 1. No acute abdominal or pelvic abnormality. 2. Cirrhotic liver. 3. Stable infrarenal abdominal aortic aneurysm measuring 3.1 cm. Electronically signed by: Jerald Langford On 06/15/2021 19:07:54 PM
--- NOTE | 2021-06-15 19:27 | ECGEPIP ---
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
[2021-06-15] MEDS ORDERED: METOPROLOL SUCC (TopROL XL) 50MG **XL** TAB PO SCH (21:00)
[2021-06-15] MEDS ORDERED: HumaLOG INSULIN (NovoLOG) PER UNIT SC SCH (21:00)
[2021-06-15] MEDS ORDERED: GABAPENTIN 400MG CAP PO PRN (21:00)
[2021-06-15] MEDS ORDERED: LEVEMIR (INSULIN DETEMIR) 1 UNITS/0.01ML SC SCH (21:00)
[2021-06-15 22:15] VITALS: BP 142/63
[2021-06-15] MEDS: NS 1,000 ML IV SCH (22:51)
[2021-06-15 22:52] VITALS: BP 142/63
[2021-06-15] MEDS: allopurinoL 100 MG TAB PO SCH (22:52)
[2021-06-15] MEDS ORDERED: HumuLIN R (REGULAR) INSULIN (NovoLIN R) **100U/ML** PER UNIT IV STA (22:55)
[2021-06-15] MEDS ORDERED: ANALGESIC BALM CRM 3OZ TOP PRN (23:05)
[2021-06-15] MEDS ORDERED: BENZONATATE 100 MG CAP PO PRN (23:05)
[2021-06-15] MEDS ORDERED: ACETAMINOPHEN TAB 650MG DOSE (2X325MG) PO PRN (23:10)
[2021-06-16] VITALS: BP 120/57
[2021-06-16 00:09] LABS: HEMATOCRIT 29.6 % (36.0-47.0); HEMOGLOBIN 9.3 g/dl (12.0-15.5); MEAN CORPUSCULAR HEMOGLOBIN 29.9 pg (27.0-33.0); MEAN CORPUSCULAR HGB CONC 31.4 g/dl (32.0-36.5); MEAN CORPUSCULAR VOLUME 95.2 fl (80.0-96.0); PLATELET COUNT, AUTOMATED 173 10^3/uL (150-450); RED BLOOD COUNT 3.11 10^6/uL (4.00-5.40); WHITE BLOOD COUNT 6.3 10^3/uL (4.0-10.0)
[2021-06-16 00:32] LABS: CK-MB VALUE MASS 1.6 NG/ML (<3.6); CPK CREATINE PHOSPHOKINASE 54 U/L (26-192); MB/CK RELATIVE INDEX 2.96 (< OR =4); TROPONIN I < 0.02 NG/ML (< 0.10)
[2021-06-16] MEDS ORDERED: HumuLIN R (REGULAR) INSULIN (NovoLIN R) **100U/ML** PER UNIT IV STA (01:31)
[2021-06-16] MEDS: NS 1,000 ML IV SCH (02:05)
[2021-06-16] MEDS ORDERED: HumaLOG INSULIN (NovoLOG) PER UNIT SC ONE (02:50)
[2021-06-16 04:00] VITALS: BP 131/62
[2021-06-16 05:28] LABS: HEMATOCRIT 27.7 % (36.0-47.0); HEMOGLOBIN 8.7 g/dl (12.0-15.5); MEAN CORPUSCULAR HEMOGLOBIN 29.9 pg (27.0-33.0); MEAN CORPUSCULAR HGB CONC 31.4 g/dl (32.0-36.5); MEAN CORPUSCULAR VOLUME 95.2 fl (80.0-96.0); PLATELET COUNT, AUTOMATED 156 10^3/uL (150-450); RED BLOOD COUNT 2.91 10^6/uL (4.00-5.40); WHITE BLOOD COUNT 6.6 10^3/uL (4.0-10.0)
[2021-06-16 06:08] LABS: BLOOD UREA NITROGEN 95 MG/DL (7-18); CALCIUM LEVEL 8.9 MG/DL (8.8-10.2); CARBON DIOXIDE LEVEL 28 MEQ/L (21-32); CHLORIDE LEVEL 99 MEQ/L (98-107); CK-MB VALUE MASS 1.6 NG/ML (<3.6); CPK CREATINE PHOSPHOKINASE 62 U/L (26-192); CREATININE FOR GFR 2.81 MG/DL (0.55-1.30); GLOMERULAR FILTRATION RATE 17.8 (>45); GLUCOSE, FASTING 304 MG/DL (70-100); MB/CK RELATIVE INDEX 2.58 (< OR =4); POTASSIUM SERUM 3.7 MEQ/L (3.5-5.1); SODIUM LEVEL 133 MEQ/L (136-145); TROPONIN I < 0.02 NG/ML (< 0.10)
[2021-06-16 07:21] VITALS: BP 117/58
[2021-06-16] MEDS ORDERED: CEPHALEXIN 500 MG CAP PO SCH (09:00)
[2021-06-16] MEDS: allopurinoL 100 MG TAB PO SCH (09:03)
[2021-06-16] MEDS: HumaLOG INSULIN (NovoLOG) PER UNIT SC SCH ×2 (09:04→12:00)
[2021-06-16] MEDS ORDERED: CEPH500C PO (09:40)
--- NOTE | 2021-06-16 10:31 | DSES ---
DISCHARGE SUMMARY DATE OF ADMISSION: 06/15/2021 DATE OF DISCHARGE: 06/16/2021 PRINCIPAL DIAGNOSIS: Dizziness probably from marked hyperglycemia and iron-deficiency anemia. HISTORY: Nichol Lazcano is a 69-year-old. She was dizzy and lightheaded, came to the Emergency Room where she was found to have a drop of her hemoglobin and was quite hyperglycemic. She apparently has been having malfunction of her insulin pump most of the day prior to admission. HOSPITAL COURSE: She was admitted, placed on sliding scale insulin with a dose of basal insulin. Blood sugars improved. Her hemoglobin remained stable. She was heme positive in the Emergency Room. She already had received an iron infusion by her outpatient provider in [place] last week and already has endoscopy scheduled through Dr. Esther Hoffman's office in [place] in July. On the day of discharge she feels she is ready to go home. She is going to call Dr. Lopez's office and see if they can help get her pump working. Once that is done, she should be able to go home. I called Dr. Lopez's office on the beginning of rounds this morning but I did not get an answer but the patient will make them aware of her admission. PHYSICAL EXAM: On the day of discharge her blood pressure is 117/58, pulse 61, respirations 18, 96% O2 saturation. She is alert and oriented and conversant. Lungs are clear. Heart regular rate and rhythm. Abdomen is soft and nontender. No peripheral edema. She has ecchymosis of her back over the left scapula from her fall. LABS: Today sodium is 133, potassium 3.7, BUN 95, creatinine 2.8, glucose 304. Troponin negative times three. White count 6.6, hemoglobin 8.7, platelets 156. Urinalysis shows 3+ leukocytes, 1+ bacteria. Covered with Keflex for suspected UTI with culture results pending. CT of the abdomen and pelvis showed cirrhosis (the patient has previously diagnosed cirrhosis. She was aware of this). She also has a stable 3.1 cm infrarenal abdominal aortic aneurysm. X-rays of wrist, knee, humerus, foot, cervical spine showed no fractures. Cervical spine CT showed multi-level degenerative changes, previous anterior fixation at C5-6. DISPOSITION: She will be discharged once her insulin pump becomes functional. Anticipate that will be today. She will be discharged home improved in stable condition. She will follow up with her primary care provider in a week. Activity as tolerated. No added salt, consistent carbohydrate diet recommended. MEDICINES ON DISCHARGE: 1. Insulin pump. 2. Tylenol as needed. 3. Allopurinol 100 mg twice a day. 4. Aspirin 81 mg daily. 5. Cetirizine 10 mg daily p.r.n. for allergies. 6. Ferrous sulfate 324 mg daily. 7. Gabapentin 400 mg once daily at bedtime. 8. Hydroxyzine 25 mg once daily at bedtime. 9. Lovastatin 20 mg daily. 10. Metolazone 2.5 mg every Wednesday, Wednesday. 11. Metoprolol succinate 50 mg once daily at bedtime. 12. Multivitamin daily. 13. Protonix 40 mg daily. 14. Potassium chloride 30 mEq daily. 15. Spironolactone 50 mg daily. 16. Torsemide 50 mg twice a day. 17. The only new medicine is Keflex 500 mg twice a day for ten days pending results of urine culture. Discharge contingent on functioning insulin pump.
[2021-06-16 12:10] LABS: HEMATOCRIT 28.7 % (36.0-47.0); HEMOGLOBIN 9.1 g/dl (12.0-15.5); MEAN CORPUSCULAR HEMOGLOBIN 30.1 pg (27.0-33.0); MEAN CORPUSCULAR HGB CONC 31.7 g/dl (32.0-36.5); PLATELET COUNT, AUTOMATED 164 10^3/uL (150-450); RED BLOOD COUNT 3.02 10^6/uL (4.00-5.40); WHITE BLOOD COUNT 5.7 10^3/uL (4.0-10.0)
[2021-06-16 12:42] LABS: CK-MB VALUE MASS 2.2 NG/ML (<3.6); CPK CREATINE PHOSPHOKINASE 56 U/L (26-192); MB/CK RELATIVE INDEX 3.93 (< OR =4); TROPONIN I < 0.02 NG/ML (< 0.10)
[2021-06-16] MEDS ORDERED: PANTOPRAZOLE 40MG VIAL (C9113 PER 1) IV SCH (21:00)
== END 2021-06-16 13:26 | disposition home or self-care (01) | DRG 920 ==
LOC: M ED 14:20 → M ED INP 17:42 → ENRESERVDT 19:50 → ENRESERVTM 19:50 → M PCU 22:16
PROVIDERS: ADMIT Family Medicine; ATTEND Family Medicine
DX: T85.694A Other mechanical complication of insulin pump, initial encounter (principal); N17.9 Acute kidney failure, unspecified; E11.65 Type 2 diabetes mellitus with hyperglycemia; E11.22 Type 2 diabetes mellitus with diabetic chronic kidney disease; N18.9 Chronic kidney disease, unspecified; I87.2 Venous insufficiency (chronic) (peripheral); I12.9 Hypertensive chronic kidney disease with stage 1 through stage 4 chronic kidney disease, or unspecified chronic kidney disease; E11.40 Type 2 diabetes mellitus with diabetic neuropathy, unspecified; D50.9 Iron deficiency anemia, unspecified; N26.1 Atrophy of kidney (terminal); M10.9 Gout, unspecified; K74.60 Unspecified cirrhosis of liver; K21.9 Gastro-esophageal reflux disease without esophagitis; Z87.891 Personal history of nicotine dependence; Z79.4 Long term (current) use of insulin; Z79.899 Other long term (current) drug therapy; Z79.82 Long term (current) use of aspirin

== ENCOUNTER 2021-06-26 14:40 | Inpatient (IN) | payer MEDICARE, OTHER ==
[~2021-06-26] VITALS: Ht 157.5 cm; Wt 101.0 kg
[~2021-06-26 14:40] MED LIST changes: +ASPI81TA26 PO; +CEPH500C PO; +FERR240T PO; +FERR324T21 PO; +GABA-283 PO; +HYDR-3363 PO; +METO25TA PO; +PANT40TA29 PO; +VITMTA PO
--- NOTE | 2021-06-26 19:23 | REP ---
INDICATION: trauma. COMPARISON: 06/15/2021 TECHNIQUE: Four views FINDINGS: There is a new fracture of the base of the 2nd metatarsal. Additional fractures cannot be ruled out. There are plantar and retrocalcaneal heel spurs. IMPRESSION: There is a fracture involving the base of the 2nd metatarsal. Additional metatarsal base fractures cannot be ruled out. CT is recommended. <Electronically signed by Hakan Chen > 06/26/21 [id number]
--- NOTE | 2021-06-26 19:24 | REP ---
INDICATION: trauma. COMPARISON: None. TECHNIQUE: Four views FINDINGS: There is a fracture seen involving the base of the 2nd metatarsal with other possible metatarsal base fractures. See the foot report. There is no evidence of a distinct ankle fracture. Plantar and retrocalcaneal heel spurs are present. The mortise is intact. IMPRESSION: As above. CT recommended. <Electronically signed by Hakan Chen > 06/26/21 [id number]
[2021-06-26 22:05] LABS: BASO % 0.4 % (0.0-1.0); EOS # 0.5 10^3/uL (0.0-0.5); EOS % 6.9 % (0.0-3.0); HEMOGLOBIN 11.3 g/dl (12.0-15.5); LYMPH # 1.7 10^3/uL (1.5-5.0); LYMPH % 23.9 % (24.0-44.0); MEAN CORPUSCULAR HEMOGLOBIN 31.2 pg (27.0-33.0); MEAN CORPUSCULAR HGB CONC 32.3 g/dl (32.0-36.5); MEAN CORPUSCULAR VOLUME 96.7 fl (80.0-96.0); MONO # 0.7 10^3/uL (0.0-0.8); MONO % 9.6 % (2.0-8.0); NEUTROPHILS # 4.1 10^3/uL (1.5-8.5); NEUTROPHILS % 58.9 % (36.0-66.0); PLATELET COUNT, AUTOMATED 144 10^3/uL (150-450); RED BLOOD COUNT 3.62 10^6/uL (4.00-5.40)
--- NOTE | 2021-06-26 22:17 | REPVR ---
PROCEDURE INFORMATION: Exam: XR Chest Exam date and time: 06/26/2021 9:57 PM Age: 71 years old Clinical indication: Other: Acute renal failure, assess fluid status TECHNIQUE: Imaging protocol: XR of the chest. Views: 1 view. COMPARISON: CR PORTABLE CHEST X-RAY 06/15/2021 2:59 PM FINDINGS: Lungs: Clear. No consolidation. Pleural spaces: No pleural effusion. No pneumothorax. Heart/Mediastinum: Unremarkable. No cardiomegaly. Bones/joints: Unremarkable. IMPRESSION: No acute findings. Electronically signed by: Daniel Louise On 06/26/2021 22:16:54 PM
[2021-06-26 22:36] LABS: HEMOGLOBIN A1c 7.2 %
[2021-06-26 22:46] LABS: BILIRUBIN,TOTAL 1.7 MG/DL (0.2-1.0); CALCIUM LEVEL 9.8 MG/DL (8.8-10.2); CREATININE FOR GFR 3.67 MG/DL (0.55-1.30); GLOMERULAR FILTRATION RATE 13.1 (>45); POTASSIUM SERUM 4.3 MEQ/L (3.5-5.1); TOTAL PROTEIN 8.3 GM/DL (6.4-8.2)
[2021-06-26 23:22] LABS: RSV AMPLIFICATION NEGATIVE (NEGATIVE)
[2021-06-26] MEDS ORDERED: NS 500 ML IV ONE (23:40)
--- NOTE | 2021-06-27 00:04 | IPNPDOC ---
Text Note Date of Service The patient was seen on 06/26/21 at 1155pm NOTE time of service 1155pm is a 71 yr old w IDDM, DLP, CKD, & GERD who is admitted for management of a left foot fx & CALE on CKD. rest per 's H&P VS,Fishbone, I+O VS, Fishbone, I+O Laboratory Tests 06/26/21 21:48 Vital Signs Date Time Temp Pulse Resp B/P (MAP) Pulse Ox O2 Delivery O2 Flow Rate FiO2 06/26/21 22:45 90 16 97 Room Air 06/26/21 22:30 124/76 (92) 06/26/21 14:40 98.0 PAM PINEDA MD Jun 27, 2021 00:04
[2021-06-27] MEDS ORDERED: BENZ-18 PO (00:12)
[2021-06-27] MEDS ORDERED: CETI-24 PO (00:12)
[2021-06-27] MEDS ORDERED: HOME MED LIST COMPLETE! XX SCH (00:15)
[2021-06-27] MEDS: PERCOCET 5MG/325MG TAB PO PRN ×3 (00:18→20:03)
[2021-06-27] MEDS ORDERED: ACETAMINOPHEN 500 MG TAB PO PRN (00:25)
[2021-06-27 01:22] LABS: MAGNESIUM LEVEL 2.5 MG/DL (1.8-2.4); URIC ACID 7.7 MG/DL (2.6-6.0)
--- NOTE | 2021-06-27 01:25 | HPEPDOC ---
[facility] Medical History & Physical Date of Admission Jun 27, 2021 Date of Service: Jun 27, 2021 Attending Physician: PAM PINEDA MD History and Physical CHIEF COMPLAINT: Ankle injury HISTORY OF PRESENT ILLNESS: Patient is a 71-year-old female presenting with a 24-hour history of left ankle pain status post mechanical fall. Patient states she was assisting her mother at home and walked over something twisting her ankle inward and going to the ground. She denies injuries elsewhere or any pain outside of her left ankle following the injury. She called her neighbor who helped her to the couch, but at that time she was unable to stand supported on the ankle. The next morning she continued to have difficulties bearing weight on the ankle so she presented to [facility] ED for evaluation and was found to have several fractures at the base of her left metatarsals. The foot was splinted in the emergency department and orthopedic surgery was contacted with plans to follow-up with the patient in the morning for further evaluation. Incidentally on lab work the patient was found to have acute on chronic kidney injury. Of note, the patient was recently discharged from [facility] on 06/16 for dizziness tho ught to be secondary to a possible GI bleed from a positive stool Hemoccult test (although she does take ferrous gluconate outpatient). She received an iron infusion about a week prior to that admission and had plans to follow-up with Dr. Esther Hoffman in late June for a colonoscopy. On day of discharge her kidney function was at its baseline at about 2.4-2.8. Since being discharged she was evaluated by her battery checker who wanted to recheck her kidney function and found it to be slightly above baseline so he also sent her for a repeat lab this week but because of her fall she was unable to get that done. She was found to have a creatinine of 3.6 in the emergency department concerning for acute on chronic kidney injury. Since her discharge she states she has been eating and drinking normally. She has a protein shake with almost every meal and consumes about 2 L of water per day. She states she has been compliant with her medications including her diuretic medications. She denies any other medication changes since discharge. 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 She is a former smoker, quit greater than 10 years ago. She denies any alcohol use. Denies marijuana, heroin, cocaine, PCP, or other illicit drug use. FAMILY HISTORY: Son with kidney disease status post transplant ALLERGIES: Please see below. REVIEW OF SYSTEMS: Constitutional: Denies fevers, chills, night sweats, or recent unexpected weight change HEENT: Denies headaches, head trauma, no visual changes or eye pain, denies nosebleeds or difficulty swallowing. Cardiovascular: Denies chest pain, palpitations, or orthopnea. Respiratory: Denies cough, wheezing, or shortness of breath GI: Denies nausea, vomiting, abdominal pain, diarrhea, or constipation : Denies pain with urination or frequency Musculoskeletal: Denies joint pain or swelling Neuro/psych: Denies muscle weakness or sensory loss Skin: Denies skin rashes HOME MEDICATIONS: Please see below. PHYSICAL EXAMINATION: VITAL SIGNS: See below GENERAL APPEARANCE: Non-toxic appearing female sitting comfortably in bed in no acute distress HEENT: NC, AT, EOMI, no scleral icterus, moist mucous membranes, no pharyngeal erythema. Neck: No JVD CARDIOVASCULAR: RRR, normal S1-S2. No murmurs, gallops, rubs. LUNGS: CTAB with full breath sounds, no wheezes, crackles, or rhonchi. ABDOMEN: Soft, non-tender, non-distended, bowel sounds present. No hepatosplenomegaly. No masses or ecchymosis. No CVA tenderness. Unable to appreciate renal bruit. EXTREMITIES: Left foot in splint with good capillary refill in toes, toes are warm and have adequate ROM and sensation. No lower extremity edema. NEUROLOGICAL: No focal or sensory deficits. CN II-XII grossly intact. PSYCHIATRIC: Normal mood and affect LABORATORY DATA: See below. IMAGIN06/26/2021 left ankle x-ray: "There is a fracture seen involving the base of the 2nd metatarsal with other possible metatarsal base fractures. See the foot report. There is no evidence of a distinct ankle fracture. Plantar and retrocalcaneal heel spurs are present. The mortise is intact." 06/26/2021 left foot x-ray: "There is a new fracture of the base of the 2nd metatarsal. Additional fractures cannot be ruled out. There are plantar and retrocalcaneal heel spurs." 06/26/[address]: Radiology read pending Appears to be a closed slightly comminuted fracture at base of 2nd and 4th metatarsal of left foot. 06/26/2021 portable chest x-ray: "IMPRESSION: No acute findings." MICROBIOLOGY: Please see below. Assessment/Plan: Patient is a 71-year-old female who presented to [facility] ED status post mechanical fall with left ankle fracture and incidentally found to have acute on chronic renal failure. #. Acute on chronic renal failure Clinically patient appears euvolemic however in the setting of a possible GI bleed and a significantly elevated BUN in combination with her diuretic use leads me to think this may be prerenal in etiology however we have seen just since last discharge her hemoglobin has improved from 9 to 11. Normal Pro-Bnp with no clinical exam findings of fluid overload even in the setting of elevated serum osmolality lowers my suspicion for renal hypoperfusion 2/2 CHF. Based on information available difficult to discern cause of injury, but it does seem to have happened in the last 9-10 days. History of congenital atrophic right kidney Baseline creatinine 2.42.8. Follows with in [place] for same. Will attempt to obtain outpatient records. Renal ultrasound, urinalysis, urine electrolytes, CPK, serum osmolality, proBNP ordered to assess for possible causes of acute kidney injury. Of note patient did have a UTI last admission treated with Keflex that appears to be sensitive based on culture. She denies any urinary symptoms however Holding nephrotoxic medications (torsemide, spironolactone, allopurinol) we will continue with gentle IVF hydration overnight and reassess in the morning. #. Left foot fracture Dr. Morrison with orthopedic surgery was contacted by the emergency department and will see the patient in the morning, recommendations appreciated. We will keep patient n.p.o. in case Dr. Morrison wants patient to go to the OR in the morning Oxycodone and Tylenol as needed for pain #.Compensated Liver Cirrhosis secondary to possibly LOPEZ Known history of liver cirrhosis, she says she follows with [facility] MeldNa score of 26, FibroSure score of F4, see previous lab work for prior l iver cirrhosis work-up (unremarkable outside of 5 pressure) #. Hyponatremia -Unclear etiology as patient seems euvolemic and has no signs of volume overload -Anticipate UA and urine lytes to reflect the fact she is on diuretics, will be holding these in the mean time, may consider repeat UA w/ lytes after diuretics have been held #. Elevated liver enzyme Appears to be chronic since 2011 2018 hepatitis profile negative Continue to monitor #. CHFpEF (EF 60-65%) Grade 1 diastolic dysfunction based on 2019 echo Clinically showing no signs of volume overload and is euvolemic, proBNP normal Will hold torsemide and spironolactone in light of renal failure, continue metoprolol We will give gentle IV fluid hydration and reassess in the morning #. Thrombocytopenia Likely result of patient's liver cirrhosis Continue to monitor #. HTN Within normal limits Continue with metoprolol #. Dyslipidemia Continue with Simvastatin #. T2DM Has insulin pump prescribed by Dr. Wood outpatient A1c 7.2 Nursing order placed for her to continue using her insulin pump inpatient Given n.p.o. status patient advised to hold on further insulin therapy. #. Neuropathy Continue with home gabapentin #. Gout Holding allopurinol in light of renal failure #. Arthritis Continue with Tylenol #. GERD Continue home pantoprazole DVT prophylaxis: Heparin, teds/seqs Disposition: Anticipate at least 2 midnights Vital Signs Vital Signs Date Time Temp Pulse Resp B/P (MAP) Pulse Ox O2 Delivery O2 Flow Rate FiO2 06/27/21 00:18 16 98 Room Air 06/27/21 00:00 98.0 92 135/65 (88) Laboratory Data Labs 24H Laboratory Tests 2 06/26/21 21:18: POC Glucose (Misc Panel) 125H, POC Sodium (Misc Panel) 133L, POC Potassium (Misc Panel) 4.4, POC Chloride (Misc Panel) 98, POC Total CO2 (Misc Panel) 23.0, POC Blood Urea Nitrogen (Misc Panel > 140H, POC Ionized Calcium (Misc Panel) 4.8, POC Creatinine (Misc Panel) 3.7H, POC Hematocrit (Misc Panel) 37.0L 06/26/21 21:48: Immature Granulocyte % (Auto) 0.3, Neutrophils (%) (Auto) 58.9, Lymphocytes (%) (Auto) 23.9L, Monocytes (%) (Auto) 9.6H, Eosinophils (%) (Auto) 6.9H, Basophils (%) (Auto) 0.4, Neutrophils # (Auto) 4.1, Lymphocytes # (Auto) 1.7, Monocytes # (Auto) 0.7, Eosinophils # (Auto) 0.5, Basophils # (Auto) 0.0, Nucleated Red Blood Cells % (auto) 1.1H, Anion Gap 10, Glomerular Filtration Rate 13.1L, Es timated Mean Plasma Glucose 160H, Hemoglobin A1c 7.2, Calcium Level 9.8, Total Bilirubin 1.7H, Aspartate Amino Transf (AST/SGOT) 78H, Alanine Aminotransferase (ALT/SGPT) 67, Alkaline Phosphatase 339H, Total Protein 8.3H, Albumin 3.0L, Albumin/Globulin Ratio 0.6L 06/26/21 22:39: Coronavirus (COVID-19)(PCR) NEGATIVE, Influenza Type A (RT-PCR) NEGATIVE, Influenza Type B (RT-PCR) NEGATIVE, Respiratory Syncytial Virus (PCR) NEGATIVE CBC/BMP Laboratory Tests 06/26/21 21:48 Home Medications Scheduled Allopurinol (Allopurinol) 100 Mg Tablet, 100 MG PO BID Alpha Lipoic Acid (Alpha Lipoic Acid) 200 Mg Capsule, 200 MG PO DAILY Aspirin (Aspirin EC) 81 Mg Tablet.dr, 81 MG PO QHS Benzonatate (Benzonatate) 100 Mg Capsule, 100 MG PO TID Cetirizine HCl (Cetirizine HCl) 10 Mg Tablet, 10 MG PO DAILY Ferrous Gluconate (Ferrous Gluconate) 324 Mg Tablet, 324 MG PO DAILY Gabapentin (Gabapentin) 400 Mg Capsule, 400 MG PO QHS Hydroxyzine HCl (Hydroxyzine HCl) 25 Mg Tablet, 25 MG PO QHS Insulin Human Lispro (Novolog) 100 Unit/1 Ml Vial, 1 DOSE SC ASDIRECTED VIA INSULIN PUMP. MAX DAILY DOSE 250 UNITS Lovastatin (Lovastatin) 20 Mg Tablet, 20 MG PO QHS Metoprolol Succinate (Metoprolol Succinate) 50 Mg Tab, 50 MG PO QHS Multivitamins (Thera M Plus Tablet) 1 Each Tablet, 1 TAB PO DAILY Pantoprazole Sodium (Pantoprazole Sodium) 40 Mg Tablet.dr, 40 MG PO BID Potassium Chloride (K-Tab ER) 10 Meq Tablet.er, 10 MEQ PO QHS Potassium Chloride (K-Tab ER) 10 Meq Tablet.er, 20 MEQ PO DAILY Spironolactone (Spironolactone) 50 Mg Tablet, 50 MG PO DAILY Torsemide (Torsemide) 100 Mg Tablet, 50 MG PO BID Scheduled PRN Acetaminophen (Tylenol Extra Strength) 500 Mg Tablet, 1,000 MG PO Q6H PRN for PAIN LEVEL 1-5 Allergies Coded Allergies: Sulfa (Sulfonamide Antibiotics) (Verified Allergy, Intermediate, HIVES, 07/16/19) tetracycline (Verified Allergy, Intermediate, HIVES, 07/16/19) bee venom protein (honey bee) (Verified Allergy, Unknown, SWELLING, 07/16/19) GME ATTESTATION GME ATTESTATION My faculty preceptor for this patient encounter was physically present during the encounter and was fully available. All aspects of the patient interview, examination, medical decision making process, and medical care plan development were reviewed and approved by the faculty preceptor. The faculty preceptor is aware and concurs with the plan as stated in the body of this note and will attest to such by his/her cosignature. JORDON HA DO Jun 27, 2021 01:25
[2021-06-27] MEDS: METOPROLOL SUCC (TopROL XL) 50MG **XL** TAB PO SCH ×2 (01:54→20:03)
[2021-06-27] MEDS: BENZONATATE 100MG CAPSULE PO SCH ×4 (01:54→20:02)
[2021-06-27] MEDS: ASPIRIN 81MG ENTERIC TABLET PO SCH ×2 (01:54→20:02)
[2021-06-27] MEDS: PANTOPRAZOLE 40MG TAB (PROTONIX) PO SCH ×3 (01:54→20:02)
[2021-06-27] MEDS: GABAPENTIN 400MG CAP PO SCH ×2 (01:54→20:02)
[2021-06-27] MEDS: hydrOXYzine 25 MG TAB PO SCH ×2 (01:54→20:03)
[2021-06-27] MEDS: SIMVASTATIN 20 MG TAB PO SCH ×2 (01:54→20:02)
[2021-06-27] MEDS: D5W/0.9% SODIUM CHLORIDE 1,000 ML IV SCH ×2 (01:55→16:10)
[2021-06-27] MEDS: HEPARIN SOD (PORCINE) 5000UNITS/ML 1ML VIAL/SYRINGE SC SCH ×3 (04:12→23:13)
[2021-06-27 06:30] VITALS: BP 136/59
[2021-06-27 07:27] LABS: HEMATOCRIT 32.5 % (36.0-47.0); HEMOGLOBIN 10.3 g/dl (12.0-15.5); MEAN CORPUSCULAR HEMOGLOBIN 31.2 pg (27.0-33.0); MEAN CORPUSCULAR HGB CONC 31.7 g/dl (32.0-36.5); MEAN CORPUSCULAR VOLUME 98.5 fl (80.0-96.0); PLATELET COUNT, AUTOMATED 115 10^3/uL (150-450); WHITE BLOOD COUNT 5.5 10^3/uL (4.0-10.0)
[2021-06-27 07:52] LABS: ALBUMIN 2.4 GM/DL (3.2-5.2); CALCIUM LEVEL 9.2 MG/DL (8.8-10.2); CREATININE FOR GFR 3.42 MG/DL (0.55-1.30); GLOMERULAR FILTRATION RATE 14.2 (>45); PHOSPHORUS LEVEL 6.2 MG/DL (2.5-4.9); POTASSIUM SERUM 4.1 MEQ/L (3.5-5.1)
[2021-06-27 08:41] LABS: INR 1.16; PROTHROMBIN TIME 15.3 SECONDS (12.7-14.5)
--- NOTE | 2021-06-27 09:07 | REP ---
INDICATION: possible fracture. COMPARISON: Comparison left foot radiographs are from June 26, 2021. TECHNIQUE: Helical scanning is performed in 3 mm axial images re-formatted. Coronal and sagittal MPR images are generated. FINDINGS: CT images confirm the presence of a Lisfranc type injury, with a nondisplaced transversely oriented fracture through the proximal ends of the 2nd and 4th metatarsals. There is a chip fracture involving the proximal end of the 3rd metatarsal. There is a chip fracture involving the proximal and of the 1st metatarsal medially. The 5th metatarsal appears intact. The tarsometatarsal articulations are normally aligned. No tarsal fracture is appreciated. There is Achilles and plantar calcaneal spurring. There is associated dorsal soft tissue swelling of the midfoot and forefoot. IMPRESSION: Nondisplaced intra-articular fractures of the proximal ends of the 2nd and 4th metatarsals with chip fractures suspected at the proximal end of the 1st and 3rd metatarsals. Findings consistent with nondisplaced Lisfranc joint injury. No tarsal fracture is seen. Heel spurs. <Electronically signed by Hans Leggett > 06/27/21 [id number]
--- NOTE | 2021-06-27 09:50 | IPN ---
PROGRESS NOTE DATE: 06/27/2021 SUBJECTIVE: Nichol is seen on the Hospitalist Service on [address], admitted yesterday with left ankle pain after a mechanical fall a few days earlier, found to have several fractures of base of left metatarsals, Orthopedics is seeing her today. She was in acute on chronic kidney failure. She has a baseline creatinine around 2.4-2.8. Her creatinine was significantly elevated from that on admission. Follow-up labs this morning are still pending. She has a history of liver cirrhosis from [place]OPE[place]. She follows with Gastroenterology in [place], congestive heart failure with preserved ejection fraction of 60 to 65%, hypertensive heart disease, Type 2 diabetes now on an insulin pump coordinated by Dr. Lopez. Overall, she feels well today. No chest pain or shortness of breath. She is waiting to someone for her foot. OBJECTIVE: Blood pressure is 135/59, afebrile, 96% O2 saturation, alert, conversant, in no distress. Lungs are clear. Heart with regular rhythm. Abdomen is soft, nontender. The left foot is in a splint. LABORATORY DATA: White count is 5.5, hemoglobin 10.3, platelets 115,000, sodium 136, potassium 4.1, BUN 127, creatinine 3.4, glucose 95. IMPRESSION: 1. Metatarsal fractures of left foot, awaiting for Orthopedics to see her today. 2. Acute on chronic kidney failure. Renal function is mildly improved, continuing to follow this on a daily basis. 3. Hypertensive heart disease, blood pressure is well-controlled. 4. Congestive heart failure, preserved ejection fraction. No signs of volume overload. 5. Mild hyponatremia, this has resolved. 6. Cirrhosis, no sign of decompensated liver disease at this time.
[2021-06-27] MEDS: FERROUS GLUCONATE 324 MG TAB PO SCH (09:52)
[2021-06-27] MEDS: CETIRIZINE (ZyrTEC) 10 MG TAB PO SCH (09:52)
[2021-06-27] MEDS: MULTIVITAMINS/MINERALS THERAP 1 TAB PO SCH (09:52)
--- NOTE | 2021-06-27 12:52 | REP ---
INDICATION: mini. COMPARISON: Comparison is made with CT study from June 15, 2021. TECHNIQUE: Urinary tract sonography. FINDINGS: Scanning at the level of the urinary bladder shows no abnormality. Renal cortical echogenicity pattern is increased in the right kidney. The right kidney is markedly atrophic as seen on CT. There is no evidence of hydronephrosis on either side. There is a small cyst in the right mid kidney measuring 1.0 cm. The right kidney measures 4.8 x 2.5 x 2.4 cm. Left renal dimensions are 12.3 x 6.1 x 6.3 cm. Renal cortical echogenicity pattern is normal in the left kidney. IMPRESSION: Severely atrophic hyperechoic right kidney. Small right renal cyst. No hydronephrosis on the left. <Electronically signed by Hans Leggett > 06/27/21 [id number]
[2021-06-27 14:00] VITALS: BP 133/62
[2021-06-27 19:40] VITALS: BP 135/57
[2021-06-28] MEDS: HEPARIN SOD (PORCINE) 5000UNITS/ML 1ML VIAL/SYRINGE SC SCH ×3 (05:40→22:40)
[2021-06-28] MEDS: D5W/0.9% SODIUM CHLORIDE 1,000 ML IV SCH ×2 (05:41→17:28)
[2021-06-28 05:48] VITALS: BP 135/60
[2021-06-28] MEDS: FERROUS GLUCONATE 324 MG TAB PO SCH (09:25)
[2021-06-28] MEDS: CETIRIZINE (ZyrTEC) 10 MG TAB PO SCH (09:25)
[2021-06-28] MEDS: PANTOPRAZOLE 40MG TAB (PROTONIX) PO SCH ×2 (09:25→20:11)
[2021-06-28] MEDS: BENZONATATE 100MG CAPSULE PO SCH ×3 (09:25→20:10)
[2021-06-28] MEDS: MULTIVITAMINS/MINERALS THERAP 1 TAB PO SCH (09:25)
[2021-06-28 10:09] LABS: HEMATOCRIT 31.2 % (36.0-47.0); HEMOGLOBIN 9.6 g/dl (12.0-15.5); MEAN CORPUSCULAR HEMOGLOBIN 31.1 pg (27.0-33.0); MEAN CORPUSCULAR HGB CONC 30.8 g/dl (32.0-36.5); PLATELET COUNT, AUTOMATED 105 10^3/uL (150-450); RED BLOOD COUNT 3.09 10^6/uL (4.00-5.40); WHITE BLOOD COUNT 4.9 10^3/uL (4.0-10.0)
[2021-06-28 10:34] LABS: ALBUMIN 2.3 GM/DL (3.2-5.2); CALCIUM LEVEL 8.9 MG/DL (8.8-10.2); CREATININE FOR GFR 2.87 MG/DL (0.55-1.30); GLOMERULAR FILTRATION RATE 17.3 (>45); POTASSIUM SERUM 4.1 MEQ/L (3.5-5.1)
--- NOTE | 2021-06-28 10:42 | IPN ---
PROGRESS NOTE DATE: 06/28/2021 SUBJECTIVE: Nichol is seen on [address]. She has a bit of a tremor today that she notices. She has no chest pain or shortness of breath. I communicated with Dr. Morrison from orthopedic group. He reviewed her films and felt that metatarsal base fracture could simply be nonweightbearing and follow up as an outpatient. I did not feel the need for him to see the patient in hospital so we canceled that consult. She has [id number] kidney failure, nephrology is following her. History of cirrhosis from [place]. History of congestive heart failure with preserved ejection fraction, type 2 diabetes on an insulin pump from Dr. Lopez. Denies chest pain or shortness of breath, hypoglycemia. OBJECTIVE: 135/60, afebrile, 97% O2 saturation. No JVD. Lungs clear. Heart regular rhythm, no murmur. Abdomen is soft, nontender, no masses. Trace peripheral edema. She has a fine tremor of the hands. LABS: White count 5.5, hemoglobin 10.3, platelets 115, sodium 136, potassium 4.1, BUN 127, creatinine 3.4, essentially unchanged from yesterday. Blood sugar is generally below 200. IMPRESSION: 1. Acute kidney failure superimposed on chronic kidney disease, nephrology is following. She has had no response so far to our efforts. Daily labs have been ordered. 2. Metatarsal fracture of left foot, nonweightbearing as recommended by orthopedics, outpatient follow up with orthopedics planned. 3. Hypertension, blood pressure is well controlled. 4. Congestive heart failure, well controlled with no signs of volume overload. 5. Cirrhosis, no signs of decompensation. 6. Tremor, will keep an eye on this. She is on no medications that should contribute to this. Will get a free T4 and TSH.
[2021-06-28] MEDS: PERCOCET 5MG/325MG TAB PO PRN ×2 (11:42→20:11)
--- NOTE | 2021-06-28 14:02 | CR.PDOC ---
General Date of Consultation: Jun 28, 2021 Referring Provider: ELINA GAYLE MD Attending Physician: CARYN FERNANDO MD Consultation REASON FOR CONSULTATION/CHIEF COMPLAINT: [right distal radius fracture]. HISTORY OF PRESENT ILLNESS: [Fall of a ladder today. pain and deformity. seen in ER. RHD. no elbow of shoulder paiin. Retired. In good health. No work up for osteoporosis]. ALLERGIES: Please see below. HOME MEDICATIONS: Please see below. PAST MEDICAL HISTORY: 1. [health]. PAST SURGICAL HISTORY: 1. 2. Non smoker REVIEW OF SYSTEMS: CONSTITUTIONAL: [neg]. HEENT: [with in normal limits]. CARDIOVASCULAR: [HTN]. RESPIRATORY: [neg]. GENITOURINARY: [neg]. MUSCULOSKELETAL: [right distal radius fracture]. GASTROINTESTINAL: [nag]. SKIN: [good]. NEUROLOGICAL: [SILT]. PSYCHIATRIC: . ENDOCRINE: . HEMATOLOGIC/LYMPHATIC: . ALLERGIC/IMMUNOLOGIC: . PHYSICAL EXAMINATION: VITAL SIGNS: Please see below. GENERAL APPEARANCE: [oriented X 3]. HEENT: [normal]. RESPIRATORY: [resting comfortable on room air]. CARDIOVASCULAR: [vital stable]. ABDOMEN: [soft nontender]. EXTREMITIES: [Right distal radius, dinner folk deformity, tender. pulse ++ R and U. SILT PIN AIN Ulnar]. NEUROLOGICAL: [motor intact AIN PIN Ulnar]. PSYCHIATRIC: [normal]. LABORATORY DATA: Please see below. ASSESSMENT/PLAN: 1. [DR Lara fracture, Closed reduced in finger traps. Short arm cast. Pt tolerated very well]. 2. [post cast X-ray]. 3. Pain med . OTC Tylenol and Motrin as needed. 4. Follow up next week in office Vital Signs/I&O Vital Signs Date Time Temp Pulse Resp B/P (MAP) Pulse Ox O2 Delivery O2 Flow Rate FiO2 06/28/21 12:12 16 06/28/21 05:48 98.1 79 135/60 (85) 97 Room Air I&O- Last 24 Hours up to 6 AM 06/28/21 06:00 Intake Total 1425 ml Output Total 900 ml Balance 525 ml Laboratory Data Labs 24H Laboratory Tests 2 06/27/21 16:56: Bedside Glucose (Misc Panel) 158H 06/27/21 19:43: Bedside Glucose (Misc Panel) 173H 06/28/21 09:52: Nucleated Red Blood Cells % (auto) 0.6H, Anion Gap 8, Glomerular Filtration Rate 17.3L, Calcium Level 8.9, Phosphorus Level 4.0#, Albumin 2.3L 06/28/21 12:10: Bedside Glucose (Misc Panel) 235H CBC/BMP Laboratory Tests 06/28/21 09:52 Allergies Coded Allergies: Sulfa (Sulfonamide Antibiotics) (Verified Allergy, Intermediate, HIVES, 07/16/19) tetracycline (Verified Allergy, Intermediate, HIVES, 07/16/19) bee venom protein (honey bee) (Verified Allergy, Unknown, SWELLING, 07/16/19) Home Medications Scheduled Allopurinol (Allopurinol) 100 Mg Tablet, 100 MG PO BID, (Reported) Alpha Lipoic Acid (Alpha Lipoic Acid) 200 Mg Capsule, 200 MG PO DAILY, (Reported) Aspirin (Aspirin EC) 81 Mg Tablet.dr, 81 MG PO QHS, (Reported) Benzonatate (Benzonatate) 100 Mg Capsule, 100 MG PO TID, (Reported) Cetirizine HCl (Cetirizine HCl) 10 Mg Tablet, 10 MG PO DAILY, (Reported) Ferrous Gluconate (Ferrous Gluconate) 324 Mg Tablet, 324 MG PO DAILY, (Reported) Gabapentin (Gabapentin) 400 Mg Capsule, 400 MG PO QHS, (Reported) Hydroxyzine HCl (Hydroxyzine HCl) 25 Mg Tablet, 25 MG PO QHS, (Reported) Insulin Human Lispro (Novolog) 100 Unit/1 Ml Vial, 1 DOSE SC ASDIRECTED, (Reported) VIA INSULIN PUMP. MAX DAILY DOSE 250 UNITS Lovastatin (Lovastatin) 20 Mg Tablet, 20 MG PO QHS, (Reported) Metoprolol Succinate (Metoprolol Succinate) 50 Mg Tab, 50 MG PO QHS, (Reported) Multivitamins (Thera M Plus Tablet) 1 Each Tablet, 1 TAB PO DAILY, (Reported) Pantoprazole Sodium (Pantoprazole Sodium) 40 Mg Tablet.dr, 40 MG PO BID, (Reported) Potassium Chloride (K-Tab ER) 10 Meq Tablet.er, 10 MEQ PO QHS, (Reported) Potassium Chloride (K-Tab ER) 10 Meq Tablet.er, 20 MEQ PO DAILY, (Reported) Spironolactone (Spironolactone) 50 Mg Tablet, 50 MG PO DAILY, (Reported) Torsemide (Torsemide) 100 Mg Tablet, 50 MG PO BID, (Reported) Scheduled PRN Acetaminophen (Tylenol Extra Strength) 500 Mg Tablet, 1,000 MG PO Q6H PRN for PAIN LEVEL 1-5, (Reported) CARYN FERNANDO MD Jun 28, 2021 14:02
[2021-06-28] MEDS ORDERED: FLUBLOK(EGG FREE)(QUAD)INFLUENZA VACC 0.5ML SYRINGE 18YRS & OLDER IM ONE (18:00)
[2021-06-28] MEDS: GABAPENTIN 400MG CAP PO SCH (20:10)
[2021-06-28] MEDS: ASPIRIN 81MG ENTERIC TABLET PO SCH (20:11)
[2021-06-28] MEDS: SIMVASTATIN 20 MG TAB PO SCH (20:11)
[2021-06-28] MEDS: hydrOXYzine 25 MG TAB PO SCH (20:11)
[2021-06-28] MEDS: METOPROLOL SUCC (TopROL XL) 50MG **XL** TAB PO SCH (20:16)
[2021-06-28 22:49] VITALS: BP 126/61
[2021-06-29] MEDS: HEPARIN SOD (PORCINE) 5000UNITS/ML 1ML VIAL/SYRINGE SC SCH ×3 (05:40→21:47)
[2021-06-29 06:21] VITALS: BP 128/55
[2021-06-29 07:04] LABS: HEMATOCRIT 31.4 % (36.0-47.0); HEMOGLOBIN 9.8 g/dl (12.0-15.5); MEAN CORPUSCULAR HEMOGLOBIN 31.6 pg (27.0-33.0); MEAN CORPUSCULAR HGB CONC 31.2 g/dl (32.0-36.5); MEAN CORPUSCULAR VOLUME 101.3 fl (80.0-96.0); PLATELET COUNT, AUTOMATED 104 10^3/uL (150-450); WHITE BLOOD COUNT 4.6 10^3/uL (4.0-10.0)
[2021-06-29] MEDS: D5W/0.9% SODIUM CHLORIDE 1,000 ML IV SCH (07:25)
[2021-06-29 07:43] LABS: ALBUMIN 2.2 GM/DL (3.2-5.2); CALCIUM LEVEL 8.7 MG/DL (8.8-10.2); CREATININE FOR GFR 2.44 MG/DL (0.55-1.30); FREE T4 1.19 NG/DL (0.76-1.46); GLOMERULAR FILTRATION RATE 20.9 (>45); POTASSIUM SERUM 4.5 MEQ/L (3.5-5.1); THYROID STIMULATING HORMONE 3.74 uIU/ML (0.358-3.740)
[2021-06-29] MEDS: BENZONATATE 100MG CAPSULE PO SCH ×3 (08:08→21:47)
[2021-06-29] MEDS: PANTOPRAZOLE 40MG TAB (PROTONIX) PO SCH ×2 (08:08→21:47)
[2021-06-29] MEDS: FERROUS GLUCONATE 324 MG TAB PO SCH (08:08)
[2021-06-29] MEDS: CETIRIZINE (ZyrTEC) 10 MG TAB PO SCH (08:08)
[2021-06-29] MEDS: MULTIVITAMINS/MINERALS THERAP 1 TAB PO SCH (08:08)
[2021-06-29] MEDS: DOCUSATE SODIUM 100MG CAPSULE PO SCH ×2 (12:29→21:47)
[2021-06-29 14:00] VITALS: BP 123/66
[2021-06-29] MEDS ORDERED: DEXTROSE 50% 50 ML SYRINGE IV PRN (14:50)
[2021-06-29] MEDS ORDERED: GLUCAGON INJ 1MG VIAL SC PRN (14:50)
[2021-06-29] MEDS ORDERED: GLUCOSE 4GM CHEW TABLET PO PRN (14:50)
--- NOTE | 2021-06-29 14:57 | IPN ---
PROGRESS NOTE DATE: 06/29/2021 SUBJECTIVE: Nichol feels well. She is getting out of bed, and seems to be doing better. She has a metatarsal fracture left foot. Nonweightbearing recommended by orthopedics after review of the imaging. Formal consultation was canceled. Her acute kidney injury continues to resolve. Creatinine is steadily falling. Her strength is improving. No fever, no chills. PHYSICAL EXAMINATION: Vital signs stable, afebrile. Lungs clear. Heart regular rhythm. Abdomen soft, nontender. No peripheral edema. LABORATORY DATA: Creatinine 72.4. CBC stable. Blood sugar in the 200's. IMPRESSION: Clinically improving. Acute kidney injury is resolving. She is getting out of bed better. Her blood pressure is well controlled. MTDD
[2021-06-29] MEDS: HumaLOG INSULIN (NovoLOG) PER UNIT SC SCH ×2 (16:48→21:00)
[2021-06-29] MEDS: GABAPENTIN 400MG CAP PO SCH (21:47)
[2021-06-29] MEDS: ASPIRIN 81MG ENTERIC TABLET PO SCH (21:47)
[2021-06-29] MEDS: SIMVASTATIN 20 MG TAB PO SCH (21:47)
[2021-06-29] MEDS: hydrOXYzine 25 MG TAB PO SCH (21:47)
[2021-06-29] MEDS: METOPROLOL SUCC (TopROL XL) 50MG **XL** TAB PO SCH (21:47)
[2021-06-29 22:51] VITALS: BP 140/55
[2021-06-30] MEDS: HEPARIN SOD (PORCINE) 5000UNITS/ML 1ML VIAL/SYRINGE SC SCH ×3 (05:30→22:00)
[2021-06-30 06:50] VITALS: BP 118/48
[2021-06-30 07:07] LABS: HEMATOCRIT 29.8 % (36.0-47.0); HEMOGLOBIN 9.3 g/dl (12.0-15.5); MEAN CORPUSCULAR HEMOGLOBIN 31.7 pg (27.0-33.0); MEAN CORPUSCULAR HGB CONC 31.2 g/dl (32.0-36.5); MEAN CORPUSCULAR VOLUME 101.7 fl (80.0-96.0); RED BLOOD COUNT 2.93 10^6/uL (4.00-5.40); WHITE BLOOD COUNT 4.7 10^3/uL (4.0-10.0)
[2021-06-30 07:11] LABS: PLATELET COUNT, AUTOMATED 95 10^3/uL (150-450)
[2021-06-30 07:29] LABS: ALBUMIN 2.1 GM/DL (3.2-5.2); CALCIUM LEVEL 8.6 MG/DL (8.8-10.2); CREATININE FOR GFR 2.13 MG/DL (0.55-1.30); GLOMERULAR FILTRATION RATE 24.5 (>45); PHOSPHORUS LEVEL 2.4 MG/DL (2.5-4.9); POTASSIUM SERUM 4.9 MEQ/L (3.5-5.1)
[2021-06-30] MEDS: HumaLOG INSULIN (NovoLOG) PER UNIT SC SCH ×4 (08:19→22:14)
[2021-06-30] MEDS: PANTOPRAZOLE 40MG TAB (PROTONIX) PO SCH ×2 (08:19→22:10)
[2021-06-30] MEDS: FERROUS GLUCONATE 324 MG TAB PO SCH (08:19)
[2021-06-30] MEDS: BENZONATATE 100MG CAPSULE PO SCH ×3 (08:19→22:10)
[2021-06-30] MEDS: CETIRIZINE (ZyrTEC) 10 MG TAB PO SCH (08:19)
[2021-06-30] MEDS: MULTIVITAMINS/MINERALS THERAP 1 TAB PO SCH (08:19)
[2021-06-30] MEDS: DOCUSATE SODIUM 100MG CAPSULE PO SCH ×2 (08:19→22:09)
--- NOTE | 2021-06-30 11:15 | IPN ---
PROGRESS NOTE DATE: 06/30/2021 SUBJECTIVE: Nichol is feeling better. He renal function continues with gradual improvement. She has a left metatarsal fracture which is being treated with nonweightbearing. She seems medically stable. OBJECTIVE: VITAL SIGNS: Blood pressure 119/48, afebrile. LUNGS: Clear. HEART: Regular rhythm. ABDOMEN: Soft, nontender. EXTREMITIES: Trace peripheral edema. Left foot is wrapped. LABORATORY DATA: Creatinine is down to 2.1. CBC is stable. Blood sugar is in the 150 to 250 range. IMPRESSION: 1. Left foot fracture being considered for ARU. I think that would be a good appropriate location for her right now. Continue nonweightbearing. 2. Acute kidney injury, renal function is progressed down to baseline. 3. Diabetes. She has required very little insulin coverage. I put her on a low dose of a basal insulin just 5 units a day. Continued fingersticks with coverage, she uses an insulin pump as an outpatient but she has run out of insulin for it in the hospital so we are going to put her on Detemir insulin with sliding scale. 4. Stage IV chronic kidney disease, creatinine is approaching her baseline. 5. Hypertension is well-controlled. 6. Congenital atrophy of the right kidney. 7. Chronic anemia with heme positive stool. She has an appointment with Dr. Esther Hoffman for colonoscopy and further GI workup. TYRON
[2021-06-30 14:00] VITALS: BP 125/54
[2021-06-30 19:56] VITALS: BP 130/54
[2021-06-30] MEDS ORDERED: LEVEMIR (INSULIN DETEMIR) 1 UNITS/0.01ML SC SCH (21:00)
[2021-06-30] MEDS: ASPIRIN 81MG ENTERIC TABLET PO SCH (22:10)
[2021-06-30] MEDS: hydrOXYzine 25 MG TAB PO SCH (22:10)
[2021-06-30] MEDS: GABAPENTIN 400MG CAP PO SCH (22:10)
[2021-06-30] MEDS: SIMVASTATIN 20 MG TAB PO SCH (22:10)
[2021-06-30 22:11] VITALS: BP 130/54
[2021-06-30] MEDS: METOPROLOL SUCC (TopROL XL) 50MG **XL** TAB PO SCH (22:11)
[2021-07-01 02:27] VITALS: BP 131/79
[2021-07-01 06:22] LABS: BASO % 0.4 % (0.0-1.0); EOS # 0.4 10^3/uL (0.0-0.5); EOS % 7.5 % (0.0-3.0); HEMATOCRIT 30.2 % (36.0-47.0); HEMOGLOBIN 9.4 g/dl (12.0-15.5); LYMPH # 1.3 10^3/uL (1.5-5.0); LYMPH % 27.6 % (24.0-44.0); MEAN CORPUSCULAR HEMOGLOBIN 31.4 pg (27.0-33.0); MEAN CORPUSCULAR HGB CONC 31.1 g/dl (32.0-36.5); MONO # 0.4 10^3/uL (0.0-0.8); MONO % 8.4 % (2.0-8.0); NEUTROPHILS # 2.6 10^3/uL (1.5-8.5); NEUTROPHILS % 55.9 % (36.0-66.0); PLATELET COUNT, AUTOMATED 105 10^3/uL (150-450); RED BLOOD COUNT 2.99 10^6/uL (4.00-5.40); WHITE BLOOD COUNT 4.6 10^3/uL (4.0-10.0)
[2021-07-01 06:44] LABS: ALBUMIN 2.2 GM/DL (3.2-5.2); CALCIUM LEVEL 8.9 MG/DL (8.8-10.2); CREATININE FOR GFR 2.16 MG/DL (0.55-1.30); GLOMERULAR FILTRATION RATE 24.1 (>45); PHOSPHORUS LEVEL 1.7 MG/DL (2.5-4.9); POTASSIUM SERUM 5.2 MEQ/L (3.5-5.1)
[2021-07-01] MEDS: HEPARIN SOD (PORCINE) 5000UNITS/ML 1ML VIAL/SYRINGE SC SCH ×2 (06:48→14:01)
[2021-07-01] MEDS: HumaLOG INSULIN (NovoLOG) PER UNIT SC SCH ×2 (07:49→12:22)
[2021-07-01] MEDS: PANTOPRAZOLE 40MG TAB (PROTONIX) PO SCH (07:49)
[2021-07-01] MEDS: CETIRIZINE (ZyrTEC) 10 MG TAB PO SCH (07:50)
[2021-07-01] MEDS: MULTIVITAMINS/MINERALS THERAP 1 TAB PO SCH (07:50)
[2021-07-01] MEDS: FERROUS GLUCONATE 324 MG TAB PO SCH (07:50)
[2021-07-01] MEDS: DOCUSATE SODIUM 100MG CAPSULE PO SCH (07:50)
[2021-07-01] MEDS: BENZONATATE 100MG CAPSULE PO SCH (07:50)
[2021-07-01] MEDS ORDERED: CALCIUM GLUCONATE 1,000 MG in D5W MINI-BAG PLUS 100 ML IV ONE (11:25)
[2021-07-01] MEDS ORDERED: NEUTPW PO (11:31)
[2021-07-01] MEDS ORDERED: INSUDET SC (11:31)
[2021-07-01] MEDS ORDERED: PERCOCET PO (11:31)
[2021-07-01] MEDS ORDERED: SOD POLYSTYRENE SULFONATE SUSP 15 GM/60 ML UD PO ONE (12:00)
--- NOTE | 2021-07-01 13:28 | DSES ---
DISCHARGE SUMMARY DATE OF ADMISSION: 06/26/2021 DATE OF DISCHARGE: 07/01/2021 CONSULTANTS: Collin Walters M.D., orthopedic surgeon PRIMARY DISCHARGE DIAGNOSIS: 1. Left foot fracture. 2. Acute kidney injury and chronic kidney disease Stage IV. 3. Type 2 diabetes. 4. Hypertension. 5. Congenital atrophy of the right kidney. 6. Chronic anemia with heme positive stool. DISCHARGE MEDICATIONS: 1. Levemir insulin 5 units sub q. q.h.s. 2. Percocet one tablet q. 6 as needed. 3. Potassium Phosphate, Neutra-Phos one packet t.i.d. 4. Acetaminophen 1 gram p.o. q. 6 hourly. 5. Allopurinol 100 mg b.i.d. 6. Alpha lipoic acid 200 daily. 7. Aspirin 81 q.h.s. 8. Benzonatate 100 mg t.i.d. 9. Cetirizine 10 daily. 10.Ferrous sulfate 324 daily. 11.Gabapentin 400 q.h.s. 12.Hydroxyzine 25 q.h.s. 13.Lispro insulin sliding scale. 14.Lovastatin 20 q.h.s. 15.Metoprolol 50 q.h.s. 16.Multivitamin one tablet daily. 17.Protonix 40 b.i.d. 18.Potassium chloride 10 mEq q.h.s., 20 mEq daily. 19.Spironolactone 50 daily. 20.Torsemide 50 b.i.d. HOSPITAL COURSE: This is a 71-year-old female admitted on 06/27/2021 after a mechanical fall sustaining a left ankle injury. She was found to have left metatarsal basal fracture, evaluated by Orthopedic Surgery, deemed to be nonsurgical with PT/OT, weightbearing, recommendations per Orthopedic Surgery, pain was controlled. Patient was found to have acute on chronic renal failure with diuretics held, returned back to baseline creatinine of 2.1. Patient was found to be anemic with heme positive stool and hemoglobin remained stable with RBC transfusion. She was kept on aspirin 81 mg q.h.s., evaluated by Physical Therapy with recommendations for acute rehab. Patient's pain was controlled on Tylenol. She had episodes of low phosphorus supplemented with Neutra-Phos and high potassium of 5.2 treated with calcium gluconate and Kayexalate. PHYSICAL EXAMINATION ON DISCHARGE: Temperature is 97.3, pulse is 85, respiratory rate, blood pressure 131/79, 97% on room air. In general, awake, alert and oriented x3, answering questions appropriately. Lungs are clear. Heart: S1 and S2, sinus rhythm. Abdomen is soft, nontender and nondistended. Extremities: Left foot is bandaged, trace lower extremity edema. LABORATORY DATA/IMAGING STUDIES/MICROBIOLOGY: Please see the chart. TIME SPENT ON DISCHARGE: 30 minutes. MTDD
[2021-07-01 14:00] VITALS: BP 128/53
--- NOTE | 2021-07-01 15:10 | IPN ---
PROGRESS NOTE DATE: 07/01/2021 SUBJECTIVE: Patient complains of pain when she ambulates, decrease in her balance. 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 She would like to be discharged from the hospital, however she is a candidate for acute rehab unit. She currently has no pain when she is lying down. She is nonweightbearing on that foot. OBJECTIVE: VITAL SIGNS: She is afebrile, temperature is 97.3, pulse is 85, respiratory rate is 18, blood pressure is 131/79, 97% on room air. GENERAL: Patient is awake, alert and oriented to person, place and time, answering questions appropriately. LUNGS: Clear. HEART: S1 and S2, regular rate and rhythm. ABDOMEN: Obese, soft and nontender. Nondistended. EXTREMITIES: Trace edema. The left foot is bandaged. LABORATORY DATA/IMAGING STUDIES/MICROBIOLOGY: Have been reviewed. Notable for hyperkalemia, chronic renal insufficiency with severe atrophic right kidney on ultrasound, no hydronephrosis on the left. ASSESSMENT AND PLAN: A 71-year-old female with a history of CHF, hyperlipidemia, Type 2 diabetes, dyslipidemia, congenital atrophic right kidney, chronic Stage IV renal failure, gout, reflux, arthritis, neuropathy, status post mechanical fall twisting her ankle inward and falling on the ground with left ankle fracture involving the base of the second metatarsal. IMPRESSION: 1. Left second metatarsal fracture, evaluated by Orthopedic Surgeon, nonsurgical at this time, weightbearing per Dr. Walters. ARU consulted. PT/OT. Assisted ambulation and fall precautions. 2. Acute kidney injury. Creatinine is improving, closer to baseline. 3. Hyperkalemia secondary to renal failure. Kayexalate and calcium gluconate given. Repeat potassium in 12 hours. 4. Hypophosphatemia, Neutra-Phos. 5. Chronic kidney disease Stage IV at baseline creatinine, strict I and O's, daily weights and fluid restriction. 6. Chronic anemia. No acute indication for RBC transfusion. 7. Congestive heart failure, currently compensated. 8. Hypertension, controlled. 9. Congenital atrophy of the right kidney. 10.Chronic anemia with heme positive stool. Dr. Esther Hoffman for colonoscopy and GI workup as an outpatient. 11.Type 2 diabetes, on Levemir insulin, 5 units q. daily, sliding scale and consistent carbohydrate diet. Disposition: Discharge to ARU once accepted and bed is available, otherwise medically stable for hospital discharge.
[2021-07-01] MEDS ORDERED: NEUTRA-PHOS 1.5 GM PACKET PO SCH (16:00)
== END 2021-07-01 14:50 | DRG 683 ==
LOC: M ED 14:40 → M ED INP 14:41 → M MS5PR 06-27 01:18 → M ED INP 06-27 01:18 → M MS5PR 06-28 09:41
PROVIDERS: ADMIT Internal Medicine; ATTEND General Practice
DX: N17.9 Acute kidney failure, unspecified (principal); I13.0 Hypertensive heart and chronic kidney disease with heart failure and stage 1 through stage 4 chronic kidney disease, or unspecified chronic kidney disease; Q60.5 Renal hypoplasia, unspecified; N18.4 Chronic kidney disease, stage 4 (severe); S92.322A Displaced fracture of second metatarsal bone, left foot, initial encounter for closed fracture; M77.32 Calcaneal spur, left foot; I50.9 Heart failure, unspecified; E78.5 Hyperlipidemia, unspecified; E11.22 Type 2 diabetes mellitus with diabetic chronic kidney disease; M10.9 Gout, unspecified; E83.39 Other disorders of phosphorus metabolism; D64.9 Anemia, unspecified; K21.9 Gastro-esophageal reflux disease without esophagitis; E11.40 Type 2 diabetes mellitus with diabetic neuropathy, unspecified; Z87.891 Personal history of nicotine dependence; Y92.009 Unspecified place in unspecified non-institutional (private) residence as the place of occurrence of the external cause; X50.1XXA Overexertion from prolonged static or awkward postures, initial encounter; Y99.8 Other external cause status; Y93.F9 Activity, other caregiving; K75.81 Nonalcoholic steatohepatitis (NASH); K74.60 Unspecified cirrhosis of liver; R25.1 Tremor, unspecified; Z79.4 Long term (current) use of insulin

== ENCOUNTER 2021-07-01 12:28 | Inpatient (IN) | payer MEDICARE, OTHER ==
[~2021-07-01] VITALS: Ht 157.5 cm; Wt 102.3 kg
[~2021-07-01 12:28] MED LIST changes: +BENZ-18 PO; +CETI-24 PO; +NEUTPW PO; +PERCOCET PO
[2021-07-01 15:00] VITALS: BP 140/63
[2021-07-01] MEDS ORDERED: GLUCOSE 4GM CHEW TABLET PO PRN (16:15)
[2021-07-01] MEDS ORDERED: BISACODYL 10 MG SUPP PR PRN (16:15)
[2021-07-01] MEDS ORDERED: BENZONATATE 100MG CAPSULE PO PRN (16:15)
[2021-07-01] MEDS ORDERED: oxyCODONE 5MG TAB PO PRN (16:15)
[2021-07-01] MEDS ORDERED: GLUCAGON INJ 1MG VIAL SC PRN (16:15)
[2021-07-01] MEDS ORDERED: MIRALAX *UNIT DOSE* 17GM PACKET PO PRN (16:15)
[2021-07-01] MEDS ORDERED: DEXTROSE 50% 50 ML SYRINGE IV PRN (16:15)
[2021-07-01] MEDS ORDERED: HOME MED LIST COMPLETE! XX SCH (17:35)
[2021-07-01] MEDS: REMEDY PHYTOPLEX Z-GUARD PASTE 113GM TUBE (FROM STOREROOM PRODUCT) TOP SCH (21:00)
[2021-07-01] MEDS: HEPARIN SOD (PORCINE) 5000UNITS/ML 1ML VIAL/SYRINGE SC SCH (21:38)
[2021-07-01] MEDS: DOCUSATE SODIUM 100MG CAPSULE PO SCH (21:38)
[2021-07-01] MEDS: allopurinoL 100 MG TAB PO SCH (21:39)
[2021-07-01] MEDS: hydrOXYzine 25 MG TAB PO SCH (21:39)
[2021-07-01] MEDS: ASPIRIN 81MG ENTERIC TABLET PO SCH (21:39)
[2021-07-01] MEDS: SIMVASTATIN 20 MG TAB PO SCH (21:40)
[2021-07-01] MEDS: SENNA 8.6 MG TAB (SENOKOT) PO SCH (21:40)
[2021-07-01] MEDS: PANTOPRAZOLE 40MG TAB (PROTONIX) PO SCH (21:40)
[2021-07-01] MEDS: METOPROLOL SUCC (TopROL XL) 50MG **XL** TAB PO SCH (21:40)
[2021-07-01] MEDS: GABAPENTIN 400MG CAP PO SCH (21:40)
[2021-07-01] MEDS: ACETAMINOPHEN 500 MG TAB PO SCH (21:41)
[2021-07-01] MEDS: NEUTRA-PHOS 1.5 GM PACKET PO SCH (21:56)
[2021-07-01 22:00] VITALS: BP 143/63
[2021-07-02] MEDS: HEPARIN SOD (PORCINE) 5000UNITS/ML 1ML VIAL/SYRINGE SC SCH ×3 (05:30→21:47)
[2021-07-02 06:00] VITALS: BP 127/58
[2021-07-02 07:56] LABS: BASO % 0.6 % (0.0-1.0); EOS # 0.4 10^3/uL (0.0-0.5); HEMATOCRIT 30.2 % (36.0-47.0); HEMOGLOBIN 9.3 g/dl (12.0-15.5); LYMPH # 1.2 10^3/uL (1.5-5.0); LYMPH % 25.3 % (24.0-44.0); MEAN CORPUSCULAR HEMOGLOBIN 31.3 pg (27.0-33.0); MEAN CORPUSCULAR HGB CONC 30.8 g/dl (32.0-36.5); MEAN CORPUSCULAR VOLUME 101.7 fl (80.0-96.0); MONO # 0.5 10^3/uL (0.0-0.8); MONO % 9.9 % (2.0-8.0); NEUTROPHILS # 2.7 10^3/uL (1.5-8.5); PLATELET COUNT, AUTOMATED 110 10^3/uL (150-450); RED BLOOD COUNT 2.97 10^6/uL (4.00-5.40); WHITE BLOOD COUNT 4.8 10^3/uL (4.0-10.0)
[2021-07-02 08:29] LABS: CALCIUM LEVEL 8.6 MG/DL (8.8-10.2); CREATININE FOR GFR 2.05 MG/DL (0.55-1.30); GLOMERULAR FILTRATION RATE 25.6 (>45); POTASSIUM SERUM 4.5 MEQ/L (3.5-5.1)
[2021-07-02 08:30] LABS: ALBUMIN 2.1 GM/DL (3.2-5.2); BILIRUBIN,TOTAL 1.1 MG/DL (0.2-1.0); TOTAL PROTEIN 6.7 GM/DL (6.4-8.2)
[2021-07-02] MEDS: FERROUS GLUCONATE 324 MG TAB PO SCH (08:48)
[2021-07-02] MEDS: allopurinoL 100 MG TAB PO SCH ×2 (08:49→20:30)
[2021-07-02] MEDS: MULTIVITAMINS/MINERALS THERAP 1 TAB PO SCH (08:49)
[2021-07-02] MEDS: ACETAMINOPHEN 500 MG TAB PO SCH ×3 (08:49→20:31)
[2021-07-02] MEDS: SPIRONOLACTONE 50 MG TAB PO SCH (08:49)
[2021-07-02] MEDS: CETIRIZINE (ZyrTEC) 10 MG TAB PO SCH (08:49)
[2021-07-02] MEDS: REMEDY PHYTOPLEX Z-GUARD PASTE 113GM TUBE (FROM STOREROOM PRODUCT) TOP SCH ×3 (08:51→20:32)
[2021-07-02] MEDS: PANTOPRAZOLE 40MG TAB (PROTONIX) PO SCH ×2 (08:51→20:30)
[2021-07-02] MEDS: DOCUSATE SODIUM 100MG CAPSULE PO SCH ×2 (08:51→20:30)
[2021-07-02] MEDS ORDERED: TORSEMIDE (DEMADEX) 50 MG PER 1/2 TAB PO SCH (09:00)
[2021-07-02] MEDS: NEUTRA-PHOS 1.5 GM PACKET PO SCH ×3 (09:02→20:31)
--- NOTE | 2021-07-02 09:03 | HPEPDOC ---
Parking Lot [employer] Note DATE OF ADMISSION: 07-01-21 DATE OF SERVICE: 07-02-21 TIME OF ADMISSION: Please refer to physician's admission order. 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 She was found to have "Nondisplaced intra-articular fractures of the proximal ends of the 2nd and 4th metatarsals with chip fractures suspected at the proximal end of the 1st and 3rd metatarsals. Findings consistent with nondisplaced Lisfranc joint injury." Orthopedics was consulted and patient was placed in a soft cast and made NWB to the left lower extremity. She had CALE which gradually improved and anemia that was relatively stable and patient was instructed to follow-up with Dr. Hoffman in [place] for colonoscopy. She had significant mobility and ADL impairments and deemed medically appropriate for discharge to ARU on 07-01-21. REVIEW OF SYSTEMS: The following is a completed review of systems and has been reviewed. Review of systems otherwise unremarkable. PAIN: Patient self reports left foot pain and right knee pain EYES: No recent vision changes EARS, NOSE, & THROAT: No throat pain, or dysphagia, or rhinorrhea CARDIOVASCULAR: Denies chest pain or palpitations PULMONARY: Denies shortness of breath GASTROINTESTINAL: Denies constipation/diarrhea GENITOURINARY: denies dysuria MUSCULOSKELETAL: left foot fracture NEUROLOGICAL: +peripheral polyneuropathy HEMATOLOGICAL: +anemia SKIN: denies rash PSYCHIATRIC: Unremarkable All other review of systems found to be negative. PAST MEDICAL HISTORY: as per HPI PAST SURGICAL HISTORY: tubal ligation, CTS, back surgery, RTC surgery, right hand surgery, colonoscopy, neck surgery, right knee surgery ALLERGIES: Please see below. MEDICATIONS: Please see below. FAMILY HISTORY: son with kidney disease SOCIAL HISTORY: former smoker, no etoh/illicit drug use DIET: low sodium, consistent carb PHYSICAL EXAMINATION: VITAL SIGNS: Please see below. GENERAL: Pleasant and cooperative. No acute distress. HEENT: PERRL. Extraocular movements intact. Clear conjunctiva CARDIOVASCULAR: Regular rate and rhythm. No murmurs, rubs, or gallops LUNGS: Clear to auscultation bilaterally. No wheezes. No rhonchi ABDOMEN: Soft, nontender, nondistended. Positive bowel sounds. Normal active bowel sounds NEUROLOGICAL: Alert and oriented times three. Cranial nerves II through XII grossly intact. Sensation decreased to light touch in stocking pattern EXTREMITIES: 5\\5 strength bilateral upper extremities. 4+\\5 strength right lower extremity. 4+/5 left hip flexor and knee extension, able to wiggle toes on left (ankle/calf casted) LABORATORY DATA: Please see below. IMAGING: Imaging documentation personally reviewed by record FUNCTIONAL STATUS: Premorbid: Mod-Independent with all activities of daily life as well as mobility On Admission: Mod-Max assist for bed mobility, functional transfers, ambulation, dressing, toileting GOALS: Mod-I from wheelchair level for bed mobility, functional transfers, toileting, bathing, dressing ASSESSMENT:71-year-old F with past medical history of DM with peripheral polyneuropathy, CKD who presents status post fall with left foot fracture PLAN: 1. Rehab- PT/OT advance mobility and ADLs, strengthen/stretch/maintain ROM all 4 limbs 2. Neuro- hx of peripheral polyneuropathy due to DM with gait and mobility impairments, cont therapy 3. Ortho s/p fall with left lisfrac foot fracture cont NWB, f/u ortho on d/c 4. Cardiac- hx of HTN cont BP meds -hx of diastolic CHF cont dialy weights, fluid restriction, diuretic -HLD cont statin -ASA for cardioprotection -medicint consulted to assist in overall management 5. Resp- monitor for infection 6. GI hx of LOPEZ followed by GI in [place] -+GI bleed, monitor H/H while inhouse, patient planning to f/u with Dr. Hoffman in [place] for colonoscopy -protonix BID 7. REnal- CKD with CALE, renal consulted to assist in management 8. Pain- tylenol, oxycodone, gabapentin 9. DVT ppx- heparin 10. DIspo- tbd POST ADMISSION PHYSICIAN EVALUATION: Medical and functional status: Description of medical status, medical assessment: As above. Rehabilitation diagnosis and current and prior cold morbid medical conditions as above. Risk of complications and plans to mitigate them as above. Description of functional status current status is as above. Prior status as above. Status compared to preadmission: There are no clinically significant differences between the patient's current status and the information described on the preadmission screening document. Treatment plan anticipated: Treatment plan is as described above. Required disciplines including physical therapy, occupational therapy, others as noted above Intensity of services: 3 hours a day, 6 days a week. Special considerations: There are no specific special or safety considerations that would likely preclude immediate implementation of an intensive rehabilitation program or subsequently influence the plan of care. ATTESTATION: Considering all the information above, it is my best judgment that this patient requires intensive rehabilitation therapy as described above and an inpatient hospital environment due to the complexity of nursing, medical, and rehabilitation needs required by the patient. Furthermore, this patient can reasonably be expected to participate in an benefit from an inpatient rehabilitation stay with an interdisciplinary team approach to the delivery of rehabilitation care under the direction and supervision of rehabilitation physician PROGNOSIS: good ESTIMATED LENGTH OF STAY:12-14 days. PROJECTED DISCHARGE DESTINATION: Home with family support and any durable medical equipment required to increase functional safety and mobility TIME SPENT COUNSELING AND COORDINATING INITIAL CARE: Greater than 70 minutes. Vital Signs Vital Sign - Last 24 Hours 07/01/21 07/01/21 07/01/21 07/02/21 15:00 21:40 22:00 06:00 Temp 98.2 97.9 97.1 Pulse 70 75 75 67 Resp 20 18 18 B/P (MAP) 140/63 (88) 143/63 143/63 (89) 127/58 (81) Pulse Ox 98 97 95 O2 Delivery Room Air Room Air Room Air Laboratory Data CBC/BMP Laboratory Tests 07/02/21 07:26 Labs 24H Laboratory Tests 2 07/01/21 17:03: Bedside Glucose (Misc Panel) 468H 07/01/21 20:20: Bedside Glucose (Misc Panel) 349H 07/02/21 05:16: Bedside Glucose (Misc Panel) 43L 07/02/21 06:03: Bedside Glucose (Misc Panel) 118H 07/02/21 07:26: Immature Granulocyte % (Auto) 0.2, Neutrophils (%) (Auto) 56.0, Lymphocytes (%) (Auto) 25.3, Monocytes (%) (Auto) 9.9H, Eosinophils (%) (Auto) 8.0H, Basophils (%) (Auto) 0.6, Neutrophils # (Auto) 2.7, Lymphocytes # (Auto) 1.2L, Monocytes # (Auto) 0.5, Eosinophils # (Auto) 0.4, Basophils # (Auto) 0.0, Nucleated Red Bloo d Cells % (auto) 0.0, Anion Gap 9, Glomerular Filtration Rate 25.6L, Calcium Level 8.6L, Total Bilirubin 1.1H, Aspartate Amino Transf (AST/SGOT) 77H, Alanine Aminotransferase (ALT/SGPT) 65, Alkaline Phosphatase 338H, Total Protein 6.7, Albumin 2.1L, Albumin/Globulin Ratio 0.5L FSBS Laboratory Tests Test 07/01/21 17:03 07/01/21 20:20 07/02/21 05:16 07/02/21 06:03 Range/Units Bedside Glucose (Misc Panel) 468 349 43 118 80-115 MG/DL Home Medications Scheduled Allopurinol (Allopurinol) 100 Mg Tablet, 100 MG PO BID, (Reported) Alpha Lipoic Acid (Alpha Lipoic Acid) 200 Mg Capsule, 200 MG PO DAILY, (Reported) Aspirin (Aspirin EC) 81 Mg Tablet.dr, 81 MG PO QHS, (Reported) Benzonatate (Benzonatate) 100 Mg Capsule, 100 MG PO TID, (Reported) Cetirizine HCl (Cetirizine HCl) 10 Mg Tablet, 10 MG PO DAILY, (Reported) Ferrous Gluconate (Ferrous Gluconate) 324 Mg Tablet, 324 MG PO DAILY, (Reported) Gabapentin (Gabapentin) 400 Mg Capsule, 400 MG PO QHS, (Reported) Hydroxyzine HCl (Hydroxyzine HCl) 25 Mg Tablet, 25 MG PO QHS, (Reported) Insulin Detemir (Levemir) 100 Unit/1 Ml Vial, 5 UNITS SC QHS Insulin Human Lispro (Novolog) 100 Unit/1 Ml Vial, 1 DOSE SC ASDIRECTED, (Reported) VIA INSULIN PUMP. MAX DAILY DOSE 250 UNITS Lovastatin (Lovastatin) 20 Mg Tablet, 20 MG PO QHS, (Reported) Metoprolol Succinate (Metoprolol Succinate) 50 Mg Tab, 50 MG PO QHS, (Reported) Multivitamins (Thera M Plus Tablet) 1 Each Tablet, 1 TAB PO DAILY, (Reported) Pantoprazole Sodium (Pantoprazole Sodium) 40 Mg Tablet.dr, 40 MG PO BID, (Reported) Potassium Chloride (K-Tab ER) 10 Meq Tablet.er, 10 MEQ PO QHS, (Reported) Potassium Chloride (K-Tab ER) 10 Meq Tablet.er, 20 MEQ PO DAILY, (Reported) Potassium Phos/Sodium Phos (Phos-Nak Packet) 1 Each Powd.pack, 1 PKT PO TID Spironolactone (Spironolactone) 50 Mg Tablet, 50 MG PO DAILY, (Reported) Torsemide (Torsemide) 100 Mg Tablet, 50 MG PO BID, (Reported) Scheduled PRN Acetaminophen (Tylenol Extra Strength) 500 Mg Tablet, 1,000 MG PO Q6H PRN for PAIN LEVEL 1-5, (Reported) Oxycodone/Acetaminophen (Oxycodone-Acetaminophen 5-325) 1 Each Tablet, 1 TAB PO Q6HP PRN for MODERATE PAIN (PS 5-7) Allergies Coded Allergies: Sulfa (Sulfonamide Antibiotics) (Verified Allergy, Intermediate, HIVES, 07/16/19) tetracycline (Verified Allergy, Intermediate, HIVES, 07/16/19) bee venom protein (honey bee) (Verified Allergy, Unknown, SWELLING, 07/16/19) A-FIB/CHADSVASC A-FIB History Current/History of A-Fib/PAF?: No Current PO Anticoag Therapy: No DESI ROSS MD Jul 02, 2021 09:03
[2021-07-02] MEDS ORDERED: oxyCODONE 5MG TAB PO ONE (12:05)
[2021-07-02 14:00] VITALS: BP 130/60
--- NOTE | 2021-07-02 14:37 | IPN ---
PROGRESS NOTE DATE: 07/02/2021 SUBJECTIVE: Patient complains of 6/10 pain after working with physical therapy this morning in the left ankle. Patient denies any other complaints. No fever, chills, shortness of breath. OBJECTIVE: VITAL SIGNS: Temperature 97.1, pulse 67, respiratory rate 18, blood pressure 127/58, 95% on room air. GENERAL: Awake, alert, oriented to person, place and time, answering questions appropriately. LUNGS: Clear to auscultation. No wheezing, rales or rhonchi. HEART: S1, S2. Sinus rhythm. ABDOMEN: Obese, soft, nontender, nondistended. Positive bowel sounds. EXTREMITIES: Left ankle is bandaged. LABORATORY DATA/MICROBIOLOGY/IMAGING STUDIES: From previous admission have been reviewed. ASSESSMENT: This is a 71-year-old female with history of congestive heart failure, hyperlipidemia, type 2 diabetes, dyslipidemia, congenital atrophic right kidney, chronic kidney disease stage IV, gout, reflux, arthritis, neuropathy, status post mechanical fall, twisting her ankle inward on falling to the ground, admitted for a left ankle fracture involving the base of the second metatarsal. CURRENT ACTIVE ISSUES: 1. Left second metatarsal fracture. Patient was evaluated by orthopedic surgeon, Dr. Walters with recommendations for acute rehabilitation unit, modified activity level, assisted ambulation, followup precautions, pain medications as needed. 2. Chronic kidney disease stage IV. At baseline creatinine. Avoid nephrotoxins. Renally dose all medications. 3. Congestive heart failure. Currently compensated. 4. Hypertension. Controlled. 5. Congenital atrophy of right kidney. Monitor intake and output (I's and O's). Renally dose all medications and avoid nephrotoxins. 6. Chronic anemia with Hemoccult positive stool. Outpatient followup with Dr. Esther Hoffman for colonoscopy. 7. Type 2 diabetes. Insulin sliding scale. Consistent carbohydrate diet. Levemir insulin 5 units daily. MTDD
[2021-07-02] MEDS: TORSEMIDE 10 MG TABLET PO SCH (16:11)
[2021-07-02 19:56] LABS: PERCENT SATURATION 32.4 % (13.2-45.0); URIC ACID 6.6 MG/DL (2.6-6.0)
[2021-07-02 20:00] VITALS: BP 140/65
--- NOTE | 2021-07-02 20:07 | CR ---
CONSULTATION DATE: 07/02/2021 REQUESTING PHYSICIAN: Amy Bynum MD REASON FOR CONSULTATION: Acute kidney injury superimposed on chronic kidney disease and lower extremity edema. HISTORY OF PRESENT ILLNESS: Nichol is a 71-year-old female who was admitted to [facility] initially on June 27 due to ankle injury. She was found to be fracture in her left foot metatarsal bone due to a mechanical fall. She has known history of chronic kidney disease with atrophic right kidney and baseline stage 4 of chronic kidney disease. She is being followed by Dr. Garcia in [place] for her chronic kidney disease. She has been on diuretics for her lower extremity edema. She denies any cardiac issues known. Now she is transferred to acute rehab floor and a nephrology consultation was requested by Dr. Casey. The patient is seen on her bedside this morning. Prior to this admission, she was admitted with possible GI bleed as she was noticed to have a heme positive stool and anemia. She was treated with iron infusion and had a plan for followup with GI as an outpatient. Her baseline serum creatinine is about 2.4 to 2.8 mg per deciliter. PAST MEDICAL HISTORY: 1. Chronic kidney disease, stage 4 with atrophic right kidney. 2. Type 2 diabetes, currently on insulin pump. 3. History of dyslipidemia. 4. Hypertension. 5. History of congestive heart failure without any details known at this point. 6. Gout. 7. History of neuropathy. 8. History of gastroesophageal reflux disease. 9. Arthritis. 10. History of anemia. PAST SURGICAL HISTORY: 1. Tubal ligation in 1984. 2. Ovarian cyst removal in 1986. 3. Carpal tunnel release in 1986. 4. Back surgery in 1998. 5. Neck surgery for bone spurs in 2005. 6. Right knee surgery in 2007. 7. Colonoscopy in 2003. 8. Right shoulder rotator cuff repair in 2014. 9. Right hand surgery in 2019. 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 She is a former smoker who quit smoking more than ten years ago. She denies any alcohol or drug use. FAMILY HISTORY: Significant for kidney disease as her son has a kidney transplant. HOME MEDICATIONS: 1. Allopurinol 100 mg b.i.d. 2. Aspirin 81 mg daily. 3. Benzonatate 100 mg t.i.d. 4. Cetirizine 10 mg daily. 5. Ferrous gluconate 324 mg daily. 6. Gabapentin 400 mg at bedtime. 7. Hydroxyzine 25 mg at bedtime. 8. NovoLog insulin by insulin pump. 9. Lovastatin 20 mg at bedtime. 10. Metoprolol succinate 50 mg at bedtime. 11. Multivitamin one tablet daily. 12. Pantoprazole 40 mg b.i.d. 13. Potassium chloride 10 mEq in p.m. and 20 mEq in p.m. 14. Spironolactone 50 mg daily. 15. Furosemide 50 mg b.i.d. ALLERGIES: SHE HAS ALLERGY TO SULFA, TETRACYCLINE AND BEE VENOM. REVIEW OF SYSTEMS: She denies any fever or chills. She had a mechanical fall at home and suffered a fracture of her left foot. She denies any loss of consciousness. Ears, nose and throat are unremarkable. Cardiovascular system: Significant for chronic lower extremity edema. She had an echocardiogram done in June, which showed a normal left ventricular size and preserved systolic function and grade I diastolic dysfunction. She had aortic sclerosis but no significant stenosis. Mild mitral and tricuspid insufficiency. Respiratory system is negative for cough or hemoptysis. GI system is significant for recent history of GI bleed. She has had colonoscopies in the past but not recently. She denies any black colored stool, diarrhea or vomiting at present. system is significant for chronic kidney disease. She denies any dysuria or hematuria. She has known history of atrophic right kidney. Endocrine system is significant for type 2 diabetes and secondary hyperparathyroidism. Hematological system is significant for anemia and no long-term anticoagulation. Musculoskeletal system is significant for bilateral lower extremity edema. She has left foot metatarsal fracture recently due to mechanical fall. Neurological system is negative for seizures or stroke. She has history of polyneuropathy. Skin is negative for rash or ulcers. Psychosocial system is negative for depression or anxiety. PHYSICAL EXAMINATION: At the time of my visit, the patient is sitting at the edge of bed. She is not in any acute distress. Vital signs: Temperature is 97 degrees Fahrenheit, heart is 68 per minute and respiratory rate 18 per minute. Blood pressure 127/58 mmHg and oxygen saturation 95% on room air. Head is atraumatic. Neck: Supple and JVD not abnormally elevated. She has no oral thrush, ulcers. Pupils equal and reactive to light and sclera is anicteric. Heart sounds are regular and lungs sound clear to auscultation. Abdomen is soft and nontender and bowel sounds are normal. There is no palpable organomegaly. Extremities without any cyanosis or clubbing. She has lower extremity edema bilaterally up to knees. Her left foot and leg are wrapped in Max bandage. Neurologically she is awake, alert and oriented x3 without a focal deficit. LAB DATA: WBC count today 4.8, hemoglobin 9.3 and hematocrit 30.2. Platelets 110. Sodium 143, potassium 4.5, CO2 21, BUN 65 and creatinine 2.0. Glucose 124 and calcium 8.6. AST 77, ALT 65, alkaline phosphatase 338, total protein 6.7 and albumin 2.1. I have also reviewed her recent imaging done here during admissions. She has a severely atrophic right kidney and a small cyst in her right kidney. She has no hydronephrosis. Her right kidney measured only 4.8 cm while left kidney is 12.3 cm in size. On her CT scan of abdomen and pelvis done on June 15, she was found to have a distended urinary bladder and confirmed atrophic right kidney. Labs during recent admissions were also reviewed. Her hemoglobin has been between 9.3 and 10.3 while her serum creatinine has been between 2.1 and 3.4. Urinalysis during one of these admissions showed no protein and 3+ glucose and there was no blood. PROBLEMS: 1. Acute kidney injury superimposed on chronic kidney disease. The patient has known history of stage 4 of chronic kidney disease with baseline creatinine between 2.4 and 2.8 mg per deciliter. During one of recent admissions, her creatinine was as high as 3.4. At this point, she does not have any uremic symptoms and she is not on any nephrotoxic medications. We will need to adjust her diuretics. 2. Congestive heart failure. Patient is known to have diastolic congestive heart failure with grade I diastolic dysfunction by echocardiogram in 2019. She was on high dose diuretics prior to admission with furosemide 50 mg b.i.d., spironolactone 50 mg daily and metolazone twice a week, dose unknown. She still has bilateral lower extremity edema. She also has low albumin level of 2.1 which is probably contributing to her lower extremity edema. We will use caution while increasing her diuretic. I am going to increase her torsemide dose to 20 mg twice a day and adjust the dose during the next few days as needed. She did have a distended urinary bladder on her recent CT scan and I am going to advise the nursing staff to use a bladder scan to rule out any possibility of urinary retention. 3. Anemia. She does have a history of anemia with chronic kidney disease, stage 4 and possible GI bleed. During her recent hospitalization, she was noticed to have heme positive stool. She was also known to have iron level of 64 but that was a while ago. I do not have any recent iron studies. I will repeat her iron studies with the next lab work. 4. Hypertension. At present, her blood pressure seems very well controlled and she will remain on diuretics and metoprolol. She is not suitable for MAX inhibitor or angiotensin receptor villa in view of advanced chronic kidney disease. 5. Gout. She has been on allopurinol 100 mg b.i.d. and we will check her uric acid level. At present she is asymptomatic. However, while we are giving her diuretics, we will monitor her uric acid level. Thank you for involving me in the care of Miss Lazcano. I will follow her along with you.
[2021-07-02] MEDS: GABAPENTIN 400MG CAP PO SCH (20:30)
[2021-07-02] MEDS: SIMVASTATIN 20 MG TAB PO SCH (20:30)
[2021-07-02] MEDS: ASPIRIN 81MG ENTERIC TABLET PO SCH (20:30)
[2021-07-02] MEDS: hydrOXYzine 25 MG TAB PO SCH (20:30)
[2021-07-02] MEDS: SENNA 8.6 MG TAB (SENOKOT) PO SCH (20:30)
[2021-07-02] MEDS: METOPROLOL SUCC (TopROL XL) 50MG **XL** TAB PO SCH (20:31)
[2021-07-03 06:00] VITALS: BP 119/58
[2021-07-03] MEDS: HEPARIN SOD (PORCINE) 5000UNITS/ML 1ML VIAL/SYRINGE SC SCH ×3 (06:03→21:51)
[2021-07-03] MEDS: SPIRONOLACTONE 50 MG TAB PO SCH (08:52)
[2021-07-03] MEDS: NEUTRA-PHOS 1.5 GM PACKET PO SCH ×3 (08:52→21:51)
[2021-07-03] MEDS: FERROUS GLUCONATE 324 MG TAB PO SCH (08:52)
[2021-07-03] MEDS: MULTIVITAMINS/MINERALS THERAP 1 TAB PO SCH (08:52)
[2021-07-03] MEDS: CETIRIZINE (ZyrTEC) 10 MG TAB PO SCH (08:52)
[2021-07-03] MEDS: allopurinoL 100 MG TAB PO SCH ×2 (08:52→21:48)
[2021-07-03] MEDS: PANTOPRAZOLE 40MG TAB (PROTONIX) PO SCH ×2 (08:52→21:47)
[2021-07-03] MEDS: ACETAMINOPHEN 500 MG TAB PO SCH ×3 (08:53→21:48)
[2021-07-03] MEDS: DOCUSATE SODIUM 100MG CAPSULE PO SCH ×2 (08:53→21:00)
[2021-07-03] MEDS: TORSEMIDE 10 MG TABLET PO SCH (08:53)
[2021-07-03] MEDS: REMEDY PHYTOPLEX Z-GUARD PASTE 113GM TUBE (FROM STOREROOM PRODUCT) TOP SCH ×3 (08:54→21:00)
[2021-07-03 14:00] VITALS: BP 104/50
[2021-07-03] MEDS: TORSEMIDE (DEMADEX) 50 MG PER 1/2 TAB PO SCH (16:42)
[2021-07-03 20:00] VITALS: BP 141/65
[2021-07-03] MEDS: METOPROLOL SUCC (TopROL XL) 50MG **XL** TAB PO SCH (21:00)
[2021-07-03] MEDS: SENNA 8.6 MG TAB (SENOKOT) PO SCH (21:00)
--- NOTE | 2021-07-03 21:30 | IPN ---
NEPHROLOGY PROGRESS NOTE DATE: 07/03/2021 SUBJECTIVE: Mrs. Lazcano is seen this morning at her bedside. She is concerned about swelling on her legs but denies any dyspnea or chest pain. She wants me to increase her diuretic dose. She denies any nausea or vomiting. OBJECTIVE: PHYSICAL EXAMINATION: VITAL SIGNS: Temperature 97.5 degrees Fahrenheit, heart rate 64 per minute, respiratory rate 18 per minute, blood pressure 119/58 mm of mercury and oxygen saturation is 98% on room air. HEENT: Head is atraumatic. NECK: Supple and without JVD or thyroid enlargement. HEART: Sounds are regular. LUNGS: Sound clear to auscultation. ABDOMEN: Soft and nontender and bowel sounds are normal. EXTREMITIES: Without any cyanosis or clubbing. Lower extremity edema is 1+ bilaterally. NEUROLOGICAL: She is awake, alert and at her baseline mentation. LABORATORY STUDIES: She did not have any new labs done today. PROBLEMS: 1. Chronic kidney disease - The patient has a known history of stage 4 of chronic kidney disease with severe atrophic right kidney. At present her kidney function is at baseline or slightly better due to hypervolemia. We will continue to monitor her renal function closely. She is scheduled for lab work tomorrow. 2. Diastolic congestive heart failure her volume status is decompensated. I had increased her Torsemide dose to 30 mg twice daily yesterday in view of leg edema but did not increase to her home dose of 50 mg twice daily in view of relatively soft blood pressure. The patient is concerned about her lower extremity edema, particularly on her feet. I am increasing the dose of Torsemide to 50 mg twice daily today. We also did a bladder scan to rule out any possibility of urinary retention as her bladder was quite distended on recent CAT scan of the abdomen and pelvis. Her post void residual was noted to be only about 40 mL. She will continue with Spironolactone 50 mg once a day and we will monitor her electrolytes. 3. Gout she is currently asymptomatic and remains on Allopurinol 100 mg twice daily. Her uric acid level was 6.6 with the risk for increasing uric acid and acute gout due to increased diuretics. We will monitor her uric acid level also periodically. 4. Anemia she has chronic anemia and her iron studies were appropriate yesterday was iron level of 73 and saturation 32.4%. If her anemia does not improve after correction of her volume status, then I will consider to start Aranesp. 5. Hypotension her blood pressure is relatively low, however she is asymptomatic. She has been on Metoprolol Succinate 50 mg once a day. At present she will continue the same and we will consider to adjust her antihypertensive dose if needed.
[2021-07-03] MEDS: GABAPENTIN 400MG CAP PO SCH (21:47)
[2021-07-03] MEDS: ASPIRIN 81MG ENTERIC TABLET PO SCH (21:48)
[2021-07-03] MEDS: hydrOXYzine 25 MG TAB PO SCH (21:49)
[2021-07-03] MEDS: SIMVASTATIN 20 MG TAB PO SCH (21:49)
[2021-07-04] MEDS: HEPARIN SOD (PORCINE) 5000UNITS/ML 1ML VIAL/SYRINGE SC SCH ×3 (05:30→21:31)
[2021-07-04 06:00] VITALS: BP 114/57
[2021-07-04 06:39] LABS: BASO % 0.4 % (0.0-1.0); EOS # 0.3 10^3/uL (0.0-0.5); EOS % 6.3 % (0.0-3.0); HEMATOCRIT 28.6 % (36.0-47.0); HEMOGLOBIN 9.4 g/dl (12.0-15.5); LYMPH # 1.6 10^3/uL (1.5-5.0); LYMPH % 34.4 % (24.0-44.0); MEAN CORPUSCULAR HEMOGLOBIN 32.2 pg (27.0-33.0); MEAN CORPUSCULAR HGB CONC 32.9 g/dl (32.0-36.5); MEAN CORPUSCULAR VOLUME 97.9 fl (80.0-96.0); MONO # 0.4 10^3/uL (0.0-0.8); MONO % 9.6 % (2.0-8.0); NEUTROPHILS # 2.2 10^3/uL (1.5-8.5); NEUTROPHILS % 49.1 % (36.0-66.0); PLATELET COUNT, AUTOMATED 124 10^3/uL (150-450); RED BLOOD COUNT 2.92 10^6/uL (4.00-5.40); WHITE BLOOD COUNT 4.6 10^3/uL (4.0-10.0)
[2021-07-04 07:07] LABS: CALCIUM LEVEL 8.7 MG/DL (8.8-10.2); CREATININE FOR GFR 2.26 MG/DL (0.55-1.30); GLOMERULAR FILTRATION RATE 22.8 (>45); POTASSIUM SERUM 4.4 MEQ/L (3.5-5.1)
[2021-07-04] MEDS: TORSEMIDE (DEMADEX) 50 MG PER 1/2 TAB PO SCH ×2 (08:26→17:19)
[2021-07-04] MEDS: DOCUSATE SODIUM 100MG CAPSULE PO SCH ×2 (08:26→21:26)
[2021-07-04] MEDS: CETIRIZINE (ZyrTEC) 10 MG TAB PO SCH (08:26)
[2021-07-04] MEDS: PANTOPRAZOLE 40MG TAB (PROTONIX) PO SCH ×2 (08:26→21:26)
[2021-07-04] MEDS: allopurinoL 100 MG TAB PO SCH ×2 (08:26→21:25)
[2021-07-04] MEDS: MULTIVITAMINS/MINERALS THERAP 1 TAB PO SCH (08:26)
[2021-07-04] MEDS: NEUTRA-PHOS 1.5 GM PACKET PO SCH ×3 (08:27→21:24)
[2021-07-04] MEDS: FERROUS GLUCONATE 324 MG TAB PO SCH (08:27)
[2021-07-04] MEDS: SPIRONOLACTONE 50 MG TAB PO SCH (08:27)
[2021-07-04] MEDS: REMEDY PHYTOPLEX Z-GUARD PASTE 113GM TUBE (FROM STOREROOM PRODUCT) TOP SCH ×3 (08:28→21:00)
[2021-07-04] MEDS: ACETAMINOPHEN 500 MG TAB PO SCH ×3 (09:12→21:26)
--- NOTE | 2021-07-04 11:20 | IPNPDOC ---
PM&R Progress Note DATE OF SERVICE: Jul 04, 2021 Informatics Pharmacist Progress Note Subjective: Patient stating she is in reasonably good spirits and is a little disappointed that she cannot leave the unit to go to her social gathering, but understands why. She says her pain is well controlled. REVIEW OF SYSTEMS: The following is a completed review of systems and has been reviewed. Review of systems otherwise unremarkable. PAIN: Patient self reports left foot pain and right knee pain EYES: No recent vision changes EARS, NOSE, & THROAT: No throat pain, or dysphagia, or rhinorrhea CARDIOVASCULAR: Denies chest pain or palpitations PULMONARY: Denies shortness of breath GASTROINTESTINAL: Denies constipation/diarrhea GENITOURINARY: denies dysuria MUSCULOSKELETAL: left foot fracture NEUROLOGICAL: +peripheral polyneuropathy HEMATOLOGICAL: +anemia SKIN: denies rash PSYCHIATRIC: Unremarkable All other review of systems found to be negative. PHYSICAL EXAMINATION: VITAL SIGNS: Please see below. GENERAL: Pleasant and cooperative. No acute distress. HEENT: PERRL. Extraocular movements intact. Clear conjunctiva CARDIOVASCULAR: Regular rate and rhythm. No murmurs, rubs, or gallops LUNGS: Clear to auscultation bilaterally. No wheezes. No rhonchi ABDOMEN: Soft, nontender, nondistended. Positive bowel sounds. Normal active bowel sounds NEUROLOGICAL: Alert and oriented times three. Cranial nerves II through XII grossly intact. Sensation decreased to light touch in stocking pattern EXTREMITIES: 5\5 strength bilateral upper extremities. 4+\5 strength right lower extremity. 4+/5 left hip flexor and knee extension, able to wiggle toes on left (ankle/calf casted) ASSESSMENT:71-year-old F with past medical history of DM with peripheral polyneuropathy, CKD who presents status post fall with left foot fracture PLAN: 1. Rehab- PT/OT advance mobility and ADLs, strengthen/stretch/maintain ROM all 4 limbs 2. Neuro- hx of peripheral polyneuropathy due to DM with gait and mobility impairments, cont therapy 3. Ortho s/p fall with left lisfranc foot fracture cont NWB, f/u ortho on d/c 4. Cardiac- hx of HTN cont BP meds -hx of diastolic CHF cont daily weights, fluid restriction, diuretic -HLD cont statin -ASA for cardioprotection -medicine consulted to assist in overall management 5. Resp- monitor for infection 6. GI hx of LOPEZ followed by GI in [place] -+GI bleed, monitor H/H while inhouse, patient planning to f/u with Dr. Hoffman in [place] for colonoscopy -protonix BID 7. REnal- CKD with CALE, renal consulted to assist in management, recs appreciated 8. Pain- tylenol, oxycodone, gabapentin 9. DVT ppx- heparin 10. DIspo- tbd Allergies Coded Allergies: Sulfa (Sulfonamide Antibiotics) (Verified Allergy, Intermediate, HIVES, 07/16/19) tetracycline (Verified Allergy, Intermediate, HIVES, 07/16/19) bee venom protein (honey bee) (Verified Allergy, Unknown, SWELLING, 9) Vital Signs Vital Signs Date Time Temp Pulse Resp B/P (MAP) Pulse Ox O2 Delivery O2 Flow Rate FiO2 07/04/21 06:00 97.8 82 18 114/57 (76) 96 Room Air Laboratory Data CBC/BMP Laboratory Tests 07/04/21 06:04 Labs 24H Laboratory Tests 2 07/03/21 20:15: Bedside Glucose (Misc Panel) 166H 07/04/21 06:04: Immature Granulocyte % (Auto) 0.2, Neutrophils (%) (Auto) 49.1, Lymphocytes (%) (Auto) 34.4, Monocytes (%) (Auto) 9.6H, Eosinophils (%) (Auto) 6.3H, Basophils (%) (Auto) 0.4, Neutrophils # (Auto) 2.2, Lymphocytes # (Auto) 1.6, Monocytes # (Auto) 0.4, Eosinophils # (Auto) 0.3, Basophils # (Auto) 0.0, Nucleated Red Blood Cells % (auto) 0.7H, Anion Gap 10, Glomerular Filtration Rate 22.8L, Calcium Level 8.7L 07/04/21 06:21: Bedside Glucose (Misc Panel) 134H 07/04/21 11:16: Bedside Glucose (Misc Panel) 170H Current Medications Current Medications Current Medications Medications (Trade) Dose Ordered Sig/Rani Route PRN Reason Start Time Stop Time Status Last Admin Dose Admin Acetaminophen (Tylenol Tab) 500 mg TID PO 07/03/21 16:00 07/04/21 09:12 Acetaminophen (Tylenol Tab) 1,000 mg TID PO 07/01/21 21:00 07/03/21 10:42 DC 07/03/21 08:53 Allopurinol (Zyloprim) 100 mg BID PO 07/01/21 21:00 07/04/21 08:26 Aspirin (Ecotrin) 81 mg QHS PO 07/01/21 21:00 07/03/21 21:48 Benzonatate (Tessalon Perles) 100 mg TIDP PRN PO COUGH 07/01/21 16:15 07/03/21 08:52 Bisacodyl (Dulcolax Suppository) 10 mg DAILYPRN PRN ID CONSTIPATION 07/01/21 16:15 Cetirizine HCl (ZyrTEC) 10 mg DAILY PO 07/02/21 09:00 07/04/21 08:26 Dextrose (Dextrose 50%) 25 ml ASDIRECTED PRN IV SEE LABEL COMMENTS 07/01/21 16:15 Docusate Sodium (Colace) 100 mg BID PO 07/01/21 21:00 07/04/21 08:26 Ferrous Gluconate (Fergon) 324 mg DAILY PO 07/02/21 09:00 07/04/21 08:27 Gabapentin (Neurontin) 400 mg QHS PO 07/01/21 21:00 07/03/21 21:47 Glucagon (Glucagon) 1 mg ASDIRECTED PRN SC SEE LABEL COMMENTS 07/01/21 16:15 Glucose (Glucose) 16 GM ASDIRECTED PRN PO SEE LABEL COMMENTS 07/01/21 16:15 Heparin Sodium (Porcine) (Heparin) 5,000 units Q8H SC 07/01/21 22:00 07/04/21 05:30 Home Med (Home Med List Complete!) ASDIRECTED XX 07/01/21 17:35 07/01/21 18:02 DC Hydroxyzine HCl (Atarax) 25 mg QHS PO 07/01/21 21:00 07/03/21 21:49 Metoprolol Succinate (TopROL XL) 50 mg QHS PO 07/01/21 21:00 07/02/21 20:31 Multivitamins (Theragram-M) 1 tab DAILY PO 07/02/21 09:00 07/04/21 08:26 Oxycodone HCl (Roxicodone, Oxyir) 5 mg Q4HP PRN PO MODERATE PAIN (PS 5-7) 07/01/21 16:15 Pantoprazole Sodium (Protonix) 40 mg BID PO 07/01/21 21:00 07/04/21 08:26 Polyethylene Glycol (Miralax) 1 pkt DAILY PRN PO CONSTIPATION 07/01/21 16:15 Potassium Phos/ Sodium Phos (Neutra-Phos 1.5gm Packet) 1 pkt TID PO 07/01/21 21:00 07/04/21 08:27 Senna (Senokot) 1 tab QHS PO 07/01/21 21:00 07/02/21 20:30 Simvastatin (Zocor) 20 mg QHS PO 07/01/21 21:00 07/03/21 21:49 Spironolactone (Aldactone) 50 mg DAILY PO 07/02/21 09:00 07/04/21 08:27 Torsemide (Demadex) 30 mg BID@,17 PO 07/02/21 17:00 07/03/21 12:31 DC 07/03/21 08:53 Torsemide (Demadex) 50 mg BID@, PO 07/03/21 17:00 07/04/21 08:26 Torsemide (Demadex) 50 mg DAILY PO 07/02/21 09:00 07/02/21 12:10 DC 07/02/21 08:48 DESI ROSS MD Jul 04, 2021 11:20
[2021-07-04 14:00] VITALS: BP 148/65
[2021-07-04 20:00] VITALS: BP 170/69
--- NOTE | 2021-07-04 21:10 | IPN ---
PROGRESS NOTE DATE: 07/04/2021 SUBJECTIVE: Nichol is seen this morning on her bedside. I came to see her this morning, however, she was on the phone at the time and did not want to be interrupted. She is currently sitting in her recliner chair with her feet elevated and eating her supper. She denies any dyspnea or chest pain, but does have some lower extremity edema and today she has KENNA wraps. She denies any nausea or vomiting. PHYSICAL EXAMINATION: VITALS: Temperature 97.8 degrees Fahrenheit, heart rate 90 per minute, respiratory rate 18 per minute, blood pressure 148/65 mmHg, oxygen saturation 97% on room air. HEENT: Head is atraumatic. Neck is supple and JVD difficult to be assessed. LUNGS: Diminished breath sounds at the bases. HEART: Sounds are regular. ABDOMEN: Soft, obese and nontender. EXTREMITIES: Without any cyanosis or clubbing. Lower extremity edema is increased to 2+ today. SKIN: Has no rash or ulcers. NEUROLOGIC: She is at her baseline mentation without a focal deficit. LABORATORY STUDIES: Today's labs show WBC 4.6, hemoglobin 9.4, hematocrit 28.6. Sodium 142, potassium 4.4, CO2 23, BUN 61 and creatinine 2.26. PROBLEMS: 1. Acute kidney injury superimposed on chronic kidney disease: Patient has known history of stage 4 of chronic kidney disease. Her kidney function is not much different than her baseline. At this point, we will continue to monitor closely. She has slight increase in her creatinine as her diuretic was increased yesterday. 2. Congestive heart failure: Volume status better and she is pleased with increased urine output and decreased swelling on her legs. She is currently on Torsemide 50 mg b.i.d. and Spironolactone 50 mg b.i.d. 3. Anemia: At this point, her anemia is stable. She reports that recently she received I.V. iron infusion. I will hold off on Aranesp for another couple of days until she is appropriately diuresed. Her iron studies were appropriate just a couple of days ago. 4. Hypertension: Blood pressure seems to be much better controlled now and likely to improve further with increased diuretic dose.
[2021-07-04] MEDS: SIMVASTATIN 20 MG TAB PO SCH (21:24)
[2021-07-04] MEDS: ASPIRIN 81MG ENTERIC TABLET PO SCH (21:25)
[2021-07-04] MEDS: SENNA 8.6 MG TAB (SENOKOT) PO SCH (21:25)
[2021-07-04] MEDS: hydrOXYzine 25 MG TAB PO SCH (21:26)
[2021-07-04] MEDS: GABAPENTIN 400MG CAP PO SCH (21:26)
[2021-07-04] MEDS: METOPROLOL SUCC (TopROL XL) 50MG **XL** TAB PO SCH (21:26)
[2021-07-05] MEDS: HEPARIN SOD (PORCINE) 5000UNITS/ML 1ML VIAL/SYRINGE SC SCH ×3 (05:13→21:22)
[2021-07-05 05:36] VITALS: BP 109/52
[2021-07-05 06:15] VITALS: BP 109/52
[2021-07-05 08:22] LABS: ALBUMIN 2.1 GM/DL (3.2-5.2); CALCIUM LEVEL 8.9 MG/DL (8.8-10.2); CREATININE FOR GFR 2.2 MG/DL (0.55-1.30); GLOMERULAR FILTRATION RATE 23.6 (>45); PHOSPHORUS LEVEL 3.7 MG/DL (2.5-4.9); POTASSIUM SERUM 4.3 MEQ/L (3.5-5.1)
[2021-07-05] MEDS: REMEDY PHYTOPLEX Z-GUARD PASTE 113GM TUBE (FROM STOREROOM PRODUCT) TOP SCH ×3 (09:00→21:00)
[2021-07-05] MEDS: DOCUSATE SODIUM 100MG CAPSULE PO SCH ×2 (09:00→21:20)
[2021-07-05] MEDS: PANTOPRAZOLE 40MG TAB (PROTONIX) PO SCH ×2 (10:26→21:17)
[2021-07-05] MEDS: ACETAMINOPHEN 500 MG TAB PO SCH ×3 (10:26→21:19)
[2021-07-05] MEDS: CETIRIZINE (ZyrTEC) 10 MG TAB PO SCH (10:26)
[2021-07-05] MEDS: allopurinoL 100 MG TAB PO SCH (10:26)
[2021-07-05] MEDS: MULTIVITAMINS/MINERALS THERAP 1 TAB PO SCH (10:26)
[2021-07-05] MEDS: FERROUS GLUCONATE 324 MG TAB PO SCH (10:26)
[2021-07-05] MEDS: SPIRONOLACTONE 50 MG TAB PO SCH (10:27)
[2021-07-05] MEDS: NEUTRA-PHOS 1.5 GM PACKET PO SCH ×3 (10:27→21:22)
[2021-07-05] MEDS: TORSEMIDE (DEMADEX) 50 MG PER 1/2 TAB PO SCH ×2 (10:27→17:00)
--- NOTE | 2021-07-05 12:17 | IPNPDOC ---
Text Note Date of Service The patient was seen on 07/05/21. NOTE SUBJECTIVE: Patient is sitting on her wheelchair with her left leg resting co mfortably. However she states that she has been sitting in this position for a while because it makes her feel comfortable. She has been sleeping well laying flat on bed with no acute distress. No overnight events. OBJECTIVE: PHYSICAL EXAMINATION: VITAL SIGNS: See below GENERAL APPEARANCE: Non-toxic appearing female sitting comfortably in bed in no acute distress HEENT: NC, AT, EOMI, no scleral icterus, moist mucous membranes, no pharyngeal erythema. Neck: No JVD CARDIOVASCULAR: RRR, normal S1-S2. No murmurs, gallops, rubs. LUNGS: CTAB with full breath sounds, no wheezes, crackles, or rhonchi. ABDOMEN: Soft, non-tender, non-distended, bowel sounds present. No hepatosplenomegaly. No masses or ecchymosis. No CVA tenderness. Unable to appreciate renal bruit. EXTREMITIES: Left foot in splint with good capillary refill in toes, toes are warm and have adequate ROM and sensation. No lower extremity edema. NEUROLOGICAL: No focal or sensory deficits. CN II-XII grossly intact. PSYCHIATRIC: Normal mood and affect ASSESSMENT AND PLAN:Patient is a 71-year-old female presenting with a 24-hour history of left ankle pain status post mechanical fall. Patient states she was assisting her mother at home and walked over something twisting her ankle inward and going to the ground. She denies injuries elsewhere or any pain outside of her left ankle following the injury. She called her neighbor who helped her to the couch, but at that time she was unable to stand supported on the ankle. The next morning she continued to have difficulties bearing weight on the ankle so she presented to [facility] ED for evaluation and was found to have several fractures at the base of her left metatarsals. The foot was splinted in the emergency department and orthopedic surgery was contacted with plans to follow-up with the patient in the morning for further evaluation. Incidentally on lab work the patient was found to have acute on chronic kidney injury. Due to acute rehab for healing and physical therapy. Nephrology is on board. 1. Acute kidney injury superimposed on chronic kidney disease: Patient has known history of stage 4 of chronic kidney disease. Her kidney function is not much different than her baseline. At this point, we will continue to monitor closely. She has slight increase in her creatinine as her diuretic was increased yesterday. However her legs look much better today as the swelling has gone down quite a bit. 2. Congestive heart failure: Volume status better and she is pleased with increased urine output and decreased swelling on her legs. She is currently on Torsemide 50 mg b.i.d. and Spironolactone 50 mg b.i.d. 3. Anemia: At this point, her anemia is stable. She reports that recently she received I.V. iron infusion. No changes made today 4. Hypertension: Blood pressure seems to be much better controlled now and likely to improve further with increased diuretic dose VS,Fishbone, I+O VS, Fishbone, I+O Laboratory Tests 07/05/21 07:01 Vital Signs Date Time Temp Pulse Resp B/P (MAP) Pulse Ox O2 Delivery O2 Flow Rate FiO2 07/05/21 06:15 98.3 68 18 109/52 (71) 97 Room Air I&O- Last 24 Hours up to 6 AM 07/05/21 06:00 Intake Total 600 ml Balance 600 ml GME ATTESTATION GME ATTESTATION My faculty preceptor for this patient encounter was physically present during the encounter and was fully available. All aspects of the patient interview, examination, medical decision making process, and medical care plan development were reviewed and approved by the faculty preceptor. The faculty preceptor is aware and concurs with the plan as stated in the body of this note and will attest to such by his/her cosignature. Paramjit Pérez MD Jul 05, 2021 12:13
[2021-07-05 14:00] VITALS: BP_SYST 117; BP_SYST 146; BP_DIAS 54; BP_DIAS 63
[2021-07-05] MEDS ORDERED: PILL CUTTER 1 EACH XX PRN (17:20)
[2021-07-05 20:00] VITALS: BP 136/64
[2021-07-05] MEDS: ASPIRIN 81MG ENTERIC TABLET PO SCH (21:17)
[2021-07-05] MEDS: METOPROLOL SUCC (TopROL XL) 50MG **XL** TAB PO SCH (21:18)
[2021-07-05] MEDS: GABAPENTIN 400MG CAP PO SCH (21:19)
[2021-07-05] MEDS: SENNA 8.6 MG TAB (SENOKOT) PO SCH (21:20)
[2021-07-05] MEDS: hydrOXYzine 25 MG TAB PO SCH (21:20)
[2021-07-05] MEDS: SIMVASTATIN 20 MG TAB PO SCH (21:20)
[2021-07-05] MEDS: allopurinoL 300 MG TAB PO SCH (21:22)
[2021-07-06 05:01] VITALS: BP 116/53
[2021-07-06] MEDS: HEPARIN SOD (PORCINE) 5000UNITS/ML 1ML VIAL/SYRINGE SC SCH ×3 (05:53→20:17)
[2021-07-06 07:49] LABS: HEMATOCRIT 28.7 % (36.0-47.0); HEMOGLOBIN 9.2 g/dl (12.0-15.5); MEAN CORPUSCULAR HEMOGLOBIN 32.1 pg (27.0-33.0); MEAN CORPUSCULAR HGB CONC 32.1 g/dl (32.0-36.5); PLATELET COUNT, AUTOMATED 133 10^3/uL (150-450); RED BLOOD COUNT 2.87 10^6/uL (4.00-5.40); WHITE BLOOD COUNT 4.9 10^3/uL (4.0-10.0)
[2021-07-06 08:11] LABS: ALBUMIN 2.1 GM/DL (3.2-5.2); CALCIUM LEVEL 8.9 MG/DL (8.8-10.2); CREATININE FOR GFR 2.24 MG/DL (0.55-1.30); GLOMERULAR FILTRATION RATE 23.1 (>45); PHOSPHORUS LEVEL 3.8 MG/DL (2.5-4.9); POTASSIUM SERUM 4.4 MEQ/L (3.5-5.1)
[2021-07-06] MEDS: REMEDY PHYTOPLEX Z-GUARD PASTE 113GM TUBE (FROM STOREROOM PRODUCT) TOP SCH ×3 (09:00→20:25)
[2021-07-06] MEDS: PANTOPRAZOLE 40MG TAB (PROTONIX) PO SCH ×2 (09:22→20:16)
[2021-07-06] MEDS: TORSEMIDE (DEMADEX) 50 MG PER 1/2 TAB PO SCH ×2 (09:22→16:18)
[2021-07-06] MEDS: ACETAMINOPHEN 500 MG TAB PO SCH ×3 (09:22→20:17)
[2021-07-06] MEDS: NEUTRA-PHOS 1.5 GM PACKET PO SCH ×3 (09:23→20:15)
[2021-07-06] MEDS: CETIRIZINE (ZyrTEC) 10 MG TAB PO SCH (09:23)
[2021-07-06] MEDS: FERROUS GLUCONATE 324 MG TAB PO SCH (09:23)
[2021-07-06] MEDS: MULTIVITAMINS/MINERALS THERAP 1 TAB PO SCH (09:23)
[2021-07-06] MEDS: DOCUSATE SODIUM 100MG CAPSULE PO SCH ×3 (09:23→20:27)
[2021-07-06] MEDS: allopurinoL 300 MG TAB PO SCH ×2 (09:23→20:16)
[2021-07-06] MEDS: SPIRONOLACTONE 50 MG TAB PO SCH (09:23)
[2021-07-06 14:00] VITALS: BP 120/57
--- NOTE | 2021-07-06 19:07 | IPN ---
NEPHROLOGY PROGRESS NOTE DATE: 07/06/2021 SUBJECTIVE: Nichol is seen this morning at her bedside. She is currently sitting in the wheelchair with her left leg elevated. She denies any dyspnea, chest pain, nausea or vomiting. She feels that her lower extremity edema is improving since her diuretic dose was increased. OBJECTIVE: VITAL SIGNS: Temperature 98.5 degrees Fahrenheit, heart rate 60 per minute and respiratory rate 18 per minute, blood pressure 116/53 mm of mercury and oxygen saturation 95% on room air. HEENT: Head is atraumatic. NECK: Supple and JVD not visible, sitting upright in the chair. HEART: Sounds are regular. LUNGS: Sound clear to auscultation. ABDOMEN: Obese, soft and nontender and bowel sounds are normal. EXTREMITIES: Without any cyanosis or clubbing. Her left leg is wrapped in a dressing. The right leg has minimal edema. NEUROLOGICAL: She is awake, alert and oriented x3. LABORATORY STUDIES: Today's labs show a WBC count of 4.9, hemoglobin 9.2 and hematocrit 28.7, platelet count 133. Sodium 142, potassium 4.4, CO2 25, BUN 70 and creatinine 2.24. Yesterday her uric acid level was 7.0. PROBLEMS: 1. [id number] kidney disease - kidney function has been essentially unchanged. She has a known history of atrophic right kidney and stage 4 of chronic kidney disease. This is probably her baseline kidney function. 2. Congestive heart failure and peripheral edema volume status is gradually improving. She remains on Torsemide 50 mg twice daily. 3. Gout she has a history of chronic gout and uric acid level is 7.0. Her Allopurinol dose is being increased to 150 mg twice daily. 4. Anemia she has anemia of chronic kidney disease. 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 I will start her on Aranesp 100 mcg once a week. 5. Hypertension - blood pressure is currently very well controlled and she remains on diuretic alone. She is not suitable for sean inhibitor or angiotensin receptor blockers. She is currently on Spironolactone 50 mg daily and Torsemide 50 mg twice daily. 6. Hypokalemia her potassium level has improved and stable with Spironolactone and oral potassium supplement. She is getting potassium phosphate and sodium phosphate three times daily.
[2021-07-06 20:00] VITALS: BP 140/60
[2021-07-06] MEDS: SENNA 8.6 MG TAB (SENOKOT) PO SCH ×2 (20:15→20:27)
[2021-07-06] MEDS: SIMVASTATIN 20 MG TAB PO SCH (20:15)
[2021-07-06] MEDS: GABAPENTIN 400MG CAP PO SCH (20:15)
[2021-07-06] MEDS: hydrOXYzine 25 MG TAB PO SCH (20:16)
[2021-07-06] MEDS: ASPIRIN 81MG ENTERIC TABLET PO SCH (20:16)
[2021-07-06] MEDS: METOPROLOL SUCC (TopROL XL) 50MG **XL** TAB PO SCH (20:22)
[2021-07-07] MEDS: HEPARIN SOD (PORCINE) 5000UNITS/ML 1ML VIAL/SYRINGE SC SCH ×3 (05:27→22:01)
[2021-07-07 06:05] LABS: BASO % 0.4 % (0.0-1.0); EOS # 0.3 10^3/uL (0.0-0.5); EOS % 5.8 % (0.0-3.0); HEMOGLOBIN 9.3 g/dl (12.0-15.5); LYMPH # 1.9 10^3/uL (1.5-5.0); LYMPH % 36.1 % (24.0-44.0); MEAN CORPUSCULAR HEMOGLOBIN 31.8 pg (27.0-33.0); MEAN CORPUSCULAR HGB CONC 32.1 g/dl (32.0-36.5); MEAN CORPUSCULAR VOLUME 99.3 fl (80.0-96.0); MONO # 0.5 10^3/uL (0.0-0.8); MONO % 10.2 % (2.0-8.0); NEUTROPHILS # 2.4 10^3/uL (1.5-8.5); NEUTROPHILS % 46.9 % (36.0-66.0); PLATELET COUNT, AUTOMATED 148 10^3/uL (150-450); RED BLOOD COUNT 2.92 10^6/uL (4.00-5.40); WHITE BLOOD COUNT 5.2 10^3/uL (4.0-10.0)
[2021-07-07 06:22] VITALS: BP 101/49
[2021-07-07 06:51] LABS: CALCIUM LEVEL 8.6 MG/DL (8.8-10.2); CREATININE FOR GFR 2.45 MG/DL (0.55-1.30); GLOMERULAR FILTRATION RATE 20.8 (>45); POTASSIUM SERUM 4.7 MEQ/L (3.5-5.1)
[2021-07-07] MEDS: DOCUSATE SODIUM 100MG CAPSULE PO SCH ×2 (08:54→21:00)
[2021-07-07] MEDS: FERROUS GLUCONATE 324 MG TAB PO SCH (08:54)
[2021-07-07] MEDS: CETIRIZINE (ZyrTEC) 10 MG TAB PO SCH (08:55)
[2021-07-07] MEDS: allopurinoL 300 MG TAB PO SCH ×2 (08:55→22:01)
[2021-07-07] MEDS: PANTOPRAZOLE 40MG TAB (PROTONIX) PO SCH ×2 (08:56→21:59)
[2021-07-07] MEDS: NEUTRA-PHOS 1.5 GM PACKET PO SCH ×3 (08:56→21:59)
[2021-07-07] MEDS: MULTIVITAMINS/MINERALS THERAP 1 TAB PO SCH (08:56)
[2021-07-07] MEDS: SPIRONOLACTONE 50 MG TAB PO SCH (08:56)
[2021-07-07] MEDS: TORSEMIDE (DEMADEX) 50 MG PER 1/2 TAB PO SCH ×2 (08:56→16:52)
[2021-07-07] MEDS: REMEDY PHYTOPLEX Z-GUARD PASTE 113GM TUBE (FROM STOREROOM PRODUCT) TOP SCH ×3 (08:57→21:00)
[2021-07-07] MEDS: ACETAMINOPHEN 500 MG TAB PO SCH ×3 (08:57→22:00)
[2021-07-07] MEDS ORDERED: DARBEPOETIN 100 MCG/0.5 ML *NON-DIALYSIS* SYRINGE (J0881) SC SCH (09:00)
--- NOTE | 2021-07-07 09:12 | IPNPDOC ---
PM&R Progress Note DATE OF SERVICE: Jul 07, 2021 [employer] Progress Note Subjective: Patient reproting she is having some neuropathic pain in her left foot and did not think she could go up on her gabapentin dosing due to her kidney function. She otherwise states she is feeling well. REVIEW OF SYSTEMS: The following is a completed review of systems and has been reviewed. Review of systems otherwise unremarkable. PAIN: Patient self reports left foot pain and right knee pain EYES: No recent vision changes EARS, NOSE, & THROAT: No throat pain, or dysphagia, or rhinorrhea CARDIOVASCULAR: Denies chest pain or palpitations PULMONARY: Denies shortness of breath GASTROINTESTINAL: Denies constipation/diarrhea GENITOURINARY: denies dysuria MUSCULOSKELETAL: left foot fracture NEUROLOGICAL: +peripheral polyneuropathy HEMATOLOGICAL: +anemia SKIN: denies rash PSYCHIATRIC: Unremarkable All other review of systems found to be negative. PHYSICAL EXAMINATION: VITAL SIGNS: Please see below. GENERAL: Pleasant and cooperative. No acute distress. HEENT: PERRL. Extraocular movements intact. Clear conjunctiva CARDIOVASCULAR: Regular rate and rhythm. No murmurs, rubs, or gallops LUNGS: Clear to auscultation bilaterally. No wheezes. No rhonchi ABDOMEN: Soft, nontender, nondistended. Positive bowel sounds. Normal active bowel sounds NEUROLOGICAL: Alert and oriented times three. Cranial nerves II through XII grossly intact. Sensation decreased to light touch in stocking pattern EXTREMITIES: 5\5 strength bilateral upper extremities. 4+\5 strength right lower extremity. 4+/5 left hip flexor and knee extension, able to wiggle toes on left (ankle/calf casted) left toes ecchymotic, warm well perfused, not painful to touch ASSESSMENT:71-year-old F with past medical history of DM with peripheral polyneuropathy, CKD who presents status post fall with left foot fracture PLAN: 1. Rehab- PT/OT advance mobility and ADLs, strengthen/stretch/maintain ROM all 4 limbs 2. Neuro- hx of peripheral polyneuropathy due to DM with gait and mobility impairments, cont therapy 3. Ortho s/p fall with left lisfranc foot fracture cont NWB, f/u ortho on d/c 4. Cardiac- hx of HTN cont BP meds -hx of diastolic CHF cont daily weights, fluid restriction, diuretic -HLD cont statin -ASA for cardioprotection -medicine consulted to assist in overall management 5. Resp- monitor for infection 6. GI hx of LOPEZ followed by GI in [place] -+GI bleed, monitor H/H while inhouse, patient planning to f/u with Dr. Hoffman in [place] for colonoscopy -protonix BID 7. REnal- CKD with CALE, renal consulted to assist in management, recs appreciated 8. Pain- tylenol, oxycodone, gabapentin 9. DVT ppx- heparin 10. DIspo- tbd Allergies Coded Allergies: Sulfa (Sulfonamide Antibiotics) (Verified Allergy, Intermediate, HIVES, 07/16/19) tetracycline (Verified Allergy, Intermediate, HIVES, 07/16/19) bee venom protein (honey bee) (Verified Allergy, Unknown, SWELLING, 07/16/19) Vital Signs Vital Signs Date Time Temp Pulse Resp B/P (MAP) Pulse Ox O2 Delivery O2 Flow Rate FiO2 07/07/21 06:22 97.4 70 16 101/49 (66) 96 Room Air Laboratory Data CBC/BMP Laboratory Tests 07/07/21 05:38 Labs 24H Laboratory Tests 2 07/06/21 11:27: Bedside Glucose (Misc Panel) 153H 07/06/21 16:39: Bedside Glucose (Misc Panel) 144H 07/06/21 20:23: Bedside Glucose (Misc Panel) 135H 07/07/21 05:38: Immature Granulocyte % (Auto) 0.6, Neutrophils (%) (Auto) 46.9, Lymphocytes (%) (Auto) 36.1, Monocytes (%) (Auto) 10.2H, Eosinophils (%) (Auto) 5.8H, Basophils (%) (Auto) 0.4, Neutrophils # (Auto) 2.4, Lymphocytes # (Auto) 1.9, Monocytes # (Auto) 0.5, Eosinophils # (Auto) 0.3, Basophils # (Auto) 0.0, Nucleated Red Blood Cells % (auto) 1.0H, Anion Gap 10, Glomerular Filtration Rate 20.8L, Calcium Level 8.6L 07/07/21 06:00: Bedside Glucose (Misc Panel) 144H Current Medications Current Medications Current Medications Medications (Trade) Dose Ordered Sig/Rani Route PRN Reason Start Time Stop Time Status Last Admin Dose Admin Acetaminophen (Tylenol Tab) 500 mg TID PO 07/03/21 16:00 07/07/21 08:57 Acetaminophen (Tylenol Tab) 1,000 mg TID PO 07/01/21 21:00 07/03/21 10:42 DC 07/03/21 08:53 Allopurinol (Zyloprim) 100 mg BID PO 07/01/21 21:00 07/05/21 17:06 DC 07/05/21 10:26 Allopurinol (Zyloprim) 150 mg BID PO 07/05/21 21:00 07/07/21 08:55 Aspirin (Ecotrin) 81 mg QHS PO 07/01/21 21:00 07/06/21 20:16 Benzonatate (Tessalon Perles) 100 mg TIDP PRN PO COUGH 07/01/21 16:15 07/03/21 08:52 Bisacodyl (Dulcolax Suppository) 10 mg DAILYPRN PRN [place] CONSTIPATION 07/01/21 16:15 Cetirizine HCl (ZyrTEC) 10 mg DAILY PO 07/02/21 09:00 07/07/21 08:55 Darbepoetin Tono (Aranesp) 100 mcg Mo@09 SC 07/07/21 09:00 07/07/21 08:54 Dextrose (Dextrose 50%) 25 ml ASDIRECTED PRN IV SEE LABEL COMMENTS 07/01/21 16:15 Docusate Sodium (Colace) 100 mg BID PO 07/01/21 21:00 07/07/21 08:54 Ferrous Gluconate (Fergon) 324 mg DAILY PO 07/02/21 09:00 07/07/21 08:54 Gabapentin (Neurontin) 400 mg QHS PO 07/01/21 21:00 07/06/21 20:15 Glucagon (Glucagon) 1 mg ASDIRECTED PRN SC SEE LABEL COMMENTS 07/01/21 16:15 Glucose (Glucose) 16 GM ASDIRECTED PRN PO SEE LABEL COMMENTS 07/01/21 16:15 Heparin Sodium (Porcine) (Heparin) 5,000 units Q8H SC 07/01/21 22:00 07/07/21 05:27 Home Med (Home Med List Complete!) ASDIRECTED XX 07/01/21 17:35 07/01/21 18:02 DC Hydroxyzine HCl (Atarax) 25 mg QHS PO 07/01/21 21:00 07/06/21 20:16 Metoprolol Succinate (TopROL XL) 50 mg QHS PO 07/01/21 21:00 07/06/21 20:22 Multivitamins (Theragram-M) 1 tab DAILY PO 07/02/21 09:00 07/07/21 08:56 Oxycodone HCl (Roxicodone, Oxyir) 5 mg Q4HP PRN PO MODERATE PAIN (PS 5-7) 07/01/21 16:15 Pantoprazole Sodium (Protonix) 40 mg BID PO 07/01/21 21:00 07/07/21 08:56 Polyethylene Glycol (Miralax) 1 pkt DAILY PRN PO CONSTIPATION 07/01/21 16:15 Potassium Phos/ Sodium Phos (Neutra-Phos 1.5gm Packet) 1 pkt TID PO 07/01/21 21:00 07/07/21 08:56 Senna (Senokot) 1 tab QHS PO 07/01/21 21:00 07/05/21 21:20 Simvastatin (Zocor) 20 mg QHS PO 07/01/21 21:00 07/06/21 20:15 Spironolactone (Aldactone) 50 mg DAILY PO 07/02/21 09:00 07/07/21 08:56 Torsemide (Demadex) 30 mg BID@ PO 07/02/21 17:00 07/03/21 12:31 DC 07/03/21 08:53 Torsemide (Demadex) 50 mg BID@,17 PO 07/03/21 17:00 07/07/21 08:56 Torsemide (Demadex) 50 mg DAILY PO 07/02/21 09:00 07/02/21 12:10 DC 07/02/21 08:48 DESI ROSS MD Jul 07, 2021 09:12
[2021-07-07 14:00] VITALS: BP 133/61
[2021-07-07 20:00] VITALS: BP 130/59
[2021-07-07] MEDS: SENNA 8.6 MG TAB (SENOKOT) PO SCH (21:00)
[2021-07-07] MEDS: METOPROLOL SUCC (TopROL XL) 50MG **XL** TAB PO SCH (21:00)
--- NOTE | 2021-07-07 21:51 | IPNPDOC ---
Subjective CC/HPI The patient is a 71-year-old female admitted with a reason for visit of Polynueropathy. Events since last encounter Reports improving edema. Lt Leg>Rt. Denies any gout attack. General: Denies: ROS Unobtainable, Chills, Night Sweats, Fatigue, Malaise, Normal Appetite, Other Symptoms Constitutional: Denies: Chills, Fever, Malaise, Night Sweats, Weakness, Fatigue, Weight Loss, Lethargy, Other Eyes: Denies: Pain, Vision change, Conjunctivae inflammation, Eyelid inflammation, Redness, Other ENT: Denies: Head Aches, Ear Pain, Dysphagia, Sinus Congestion, Post Nasal Drip, Sore Throat, Epistaxis, Other Symptoms Skin: Denies: Rash, Lesions, Jaundice, Bruising, Itching, Dry, Breakdown, Nail Changes, Other Pulmonary: Denies: Dyspnea, Cough, Pleuritic Chest Pain, Other Symptoms Cardiovascular: Denies: Chest Pain, Palpitations, Orthopnea, Paroxysmal Noc. Dyspnea, Edema, Lt Headedness, Other Symptoms Gastrointestinal: Denies: Nausea, Vomiting, Abdominal Pain, Diarrhea, Constipation, Melena, Hematochezia, Other Symptoms Genitourinary: Denies: Dysuria, Frequency, Incontinence, Hematuria, Retention, Other Symptoms Hematologic: Denies: Bruising, Bleeding Excessively, Petecchia, Purpura, Enlarged Lymph Nodes, Other Hematologic Endocrine: Denies: Polydipsia, Polyphagia, Polyuria, Heat Intolerance, Cold Intolerance, Other Endocrine Sx Musculoskeletal: Denies: Neck Pain, Back Pain, Shoulder Pain, Arm Pain, Hand Pain, Leg Pain, Foot Pain, Joint Pain, Muscle Pain, Spasms, Other Symptoms Neurological: Denies: Weakness, Numbness, Incoordination, Change in speech, Confusion, Seizures, Other Symptoms Psych: Denies: Mood Normal, Anxiety, Depression, Memory Issues, Thoughts of Self Harm, Anger, Thoughts of Harming Other, Other Psych Objective Physical Examination General Exam: Alert, No Acute Distress, Other (Obese body habitus) EYE EXAM: PERRLA, Conjunctiva & lids normal, EOMI ENT EXAM: Atraumatic, Mucous membr. moist/pink Neck Exam: Supple, JVD Chest Exam: Clear to auscultation, Normal air movement Heart Exam: Rate Normal, Normal S1, Normal S2 ABDOMEN EXAM: Normal bowel sounds, Soft; No: Tenderness Extremity Exam: Clubbing, Edema (Lt >Rt), Other (Lt leg bandage noted) Skin Exam: Nl turgor and temperature; No: Rash Neuro Exam: Normal Speech, Strength at 5/5 X4 ext Psych Exam: Mental status NL, Mood NL Vital Signs/I&O Vital Signs Date Time Temp Pulse Resp B/P (MAP) Pulse Ox O2 Delivery O2 Flow Rate FiO2 07/07/21 20:00 98.2 76 19 130/59 (82) 96 Room Air I&O- Last 24 Hours up to 6 AM 07/07/21 06:00 Intake Total 1320 ml Balance 1320 ml Laboratory Data Labs 24H Laboratory Tests 2 07/07/21 05:38: Immature Granulocyte % (Auto) 0.6, Neutrophils (%) (Auto) 46.9, Lymphocytes (%) (Auto) 36.1, Monocytes (%) (Auto) 10.2H, Eosinophils (%) (Auto) 5.8H, Basophils (%) (Auto) 0.4, Neutrophils # (Auto) 2.4, Lymphocytes # (Auto) 1.9, Monocytes # (Auto) 0.5, Eosinophils # (Auto) 0.3, Basophils # (Auto) 0.0, Nucleated Red Blood Cells % (auto) 1.0H, Anion Gap 10, Glomerular Filtration Rate 20.8L, Calcium Level 8.6L 07/07/21 06:00: Bedside Glucose (Misc Panel) 144H 07/07/21 12:12: Bedside Glucose (Misc Panel) 252H 07/07/21 17:05: Bedside Glucose (Misc Panel) 134H 07/07/21 19:56: Bedside Glucose (Misc Panel) 155H CBC/BMP Laboratory Tests 07/07/21 05:38 FSBS Laboratory Tests Test 07/07/21 06:00 07/07/21 12:12 07/07/21 17:05 07/07/21 19:56 Range/Units Bedside Glucose (Misc Panel) 144 252 134 155 80-115 MG/DL Current Medications Current Medications Medications (Trade) Dose Ordered Sig/Rani Route PRN Reason Start Time Stop Time Status Last Admin Dose Admin Acetaminophen (Tylenol Tab) 500 mg TID PO 07/03/21 16:00 07/07/21 16:53 Acetaminophen (Tylenol Tab) 1,000 mg TID PO 07/01/21 21:00 07/03/21 10:42 DC 07/03/21 08:53 Allopurinol (Zyloprim) 100 mg BID PO 07/01/21 21:00 07/05/21 17:06 DC 07/05/21 10:26 Allopurinol (Zyloprim) 150 mg BID PO 07/05/21 21:00 07/07/21 08:55 Aspirin (Ecotrin) 81 mg QHS PO 07/01/21 21:00 07/06/21 20:16 Benzonatate (Tessalon Perles) 100 mg TIDP PRN PO COUGH 07/01/21 16:15 07/03/21 08:52 Bisacodyl (Dulcolax Suppository) 10 mg DAILYPRN PRN [place] CONSTIPATION 07/01/21 16:15 Cetirizine HCl (ZyrTEC) 10 mg DAILY PO 07/02/21 09:00 07/07/21 08:55 Darbepoetin Tono (Aranesp) 100 mcg Mo@09 SC 07/07/21 09:00 07/07/21 08:54 Dextrose (Dextrose 50%) 25 ml ASDIRECTED PRN IV SEE LABEL COMMENTS 07/01/21 16:15 Docusate Sodium (Colace) 100 mg BID PO 07/01/21 21:00 07/07/21 08:54 Ferrous Gluconate (Fergon) 324 mg DAILY PO 07/02/21 09:00 07/07/21 08:54 Gabapentin (Neurontin) 400 mg QHS PO 07/01/21 21:00 07/06/21 20:15 Glucagon (Glucagon) 1 mg ASDIRECTED PRN SC SEE LABEL COMMENTS 07/01/21 16:15 Glucose (Glucose) 16 GM ASDIRECTED PRN PO SEE LABEL COMMENTS 07/01/21 16:15 Heparin Sodium (Porcine) (Heparin) 5,000 units Q8H SC 07/01/21 22:00 07/07/21 14:41 Home Med (Home Med List Complete!) ASDIRECTED XX 07/01/21 17:35 07/01/21 18:02 DC Hydroxyzine HCl (Atarax) 25 mg QHS PO 07/01/21 21:00 07/06/21 20:16 Metoprolol Succinate (TopROL XL) 50 mg QHS PO 07/01/21 21:00 07/06/21 20:22 Multivitamins (Theragram-M) 1 tab DAILY PO 07/02/21 09:00 07/07/21 08:56 Oxycodone HCl (Roxicodone, Oxyir) 5 mg Q4HP PRN PO MODERATE PAIN (PS 5-7) 07/01/21 16:15 Pantoprazole Sodium (Protonix) 40 mg BID PO 07/01/21 21:00 07/07/21 08:56 Polyethylene Glycol (Miralax) 1 pkt DAILY PRN PO CONSTIPATION 07/01/21 16:15 Potassium Phos/ Sodium Phos (Neutra-Phos 1.5gm Packet) 1 pkt TID PO 07/01/21 21:00 07/07/21 16:52 Senna (Senokot) 1 tab QHS PO 07/01/21 21:00 07/05/21 21:20 Simvastatin (Zocor) 20 mg QHS PO 07/01/21 21:00 07/06/21 20:15 Spironolactone (Aldactone) 50 mg DAILY PO 07/02/21 09:00 07/07/21 08:56 Torsemide (Demadex) 30 mg BID@09,17 PO 07/02/21 17:00 07/03/21 12:31 DC 07/03/21 08:53 Torsemide (Demadex) 50 mg BID@09,17 PO 07/03/21 17:00 07/07/21 16:52 Torsemide (Demadex) 50 mg DAILY PO 07/02/21 09:00 07/02/21 12:10 DC 07/02/21 08:48 Allergies Coded Allergies: Sulfa (Sulfonamide Antibiotics) (Verified Allergy, Intermediate, HIVES, 07/16/19) tetracycline (Verified Allergy, Intermediate, HIVES, 07/16/19) bee venom protein (honey bee) (Verified Allergy, Unknown, SWELLING, 07/16/19) Assessment/Plan Date Seen The patient was seen on 07/07/21 at 21:46. Plan / VTE VTE Prophylaxis Ordered?: Yes Plan Orders past 48 Hours Orders Fingerstick Blood Sugar (07/06/21 04:58) Fingerstick Blood Sugar (07/06/21 11:27) Fingerstick Blood Sugar (07/06/21 16:39) Darbepoetin (Aranesp) (07/07/21 09:00) Fingerstick Blood Sugar (07/06/21 20:23) Fingerstick Blood Sugar (07/07/21 06:00) Cbc With Differential (07/09/21 06:00) Basic Metabolic Profile (07/09/21 06:00) Fingerstick Blood Sugar (07/07/21 12:12) Fingerstick Blood Sugar (07/07/21 17:05) Fingerstick Blood Sugar (07/07/21 19:56) Plan Text CALE on CKD4 Anemia in CKD HFpEF, LVEF 60%, Grade 1 diastolic dysfunction Leg edema Chronic Gout sec to CKD Cont current dose of Torsemide and spironolactone. Avoid metolazone for now, allopurinol increased due to high dose diuretic. AGNES started for anemia. JOSE BANEGAS MD Jul 07, 2021 21:51
[2021-07-07] MEDS: SIMVASTATIN 20 MG TAB PO SCH (21:59)
[2021-07-07] MEDS: ASPIRIN 81MG ENTERIC TABLET PO SCH (21:59)
[2021-07-07] MEDS: GABAPENTIN 400MG CAP PO SCH (21:59)
[2021-07-07] MEDS: hydrOXYzine 25 MG TAB PO SCH (22:00)
[2021-07-08] MEDS: HEPARIN SOD (PORCINE) 5000UNITS/ML 1ML VIAL/SYRINGE SC SCH ×4 (05:23→21:56)
[2021-07-08 06:00] VITALS: BP 136/63
[2021-07-08] MEDS: CETIRIZINE (ZyrTEC) 10 MG TAB PO SCH (08:48)
[2021-07-08] MEDS: TORSEMIDE (DEMADEX) 50 MG PER 1/2 TAB PO SCH ×2 (08:48→15:58)
[2021-07-08] MEDS: FERROUS GLUCONATE 324 MG TAB PO SCH (08:48)
[2021-07-08] MEDS: MULTIVITAMINS/MINERALS THERAP 1 TAB PO SCH (08:48)
[2021-07-08] MEDS: allopurinoL 300 MG TAB PO SCH ×2 (08:48→21:54)
[2021-07-08] MEDS: NEUTRA-PHOS 1.5 GM PACKET PO SCH ×3 (08:48→21:55)
[2021-07-08] MEDS: PANTOPRAZOLE 40MG TAB (PROTONIX) PO SCH ×2 (08:48→21:54)
[2021-07-08] MEDS: SPIRONOLACTONE 50 MG TAB PO SCH (08:49)
[2021-07-08] MEDS: ACETAMINOPHEN 500 MG TAB PO SCH ×3 (08:49→21:56)
[2021-07-08] MEDS: DOCUSATE SODIUM 100MG CAPSULE PO SCH ×2 (08:49→22:00)
[2021-07-08] MEDS: REMEDY PHYTOPLEX Z-GUARD PASTE 113GM TUBE (FROM STOREROOM PRODUCT) TOP SCH ×3 (08:50→21:00)
--- NOTE | 2021-07-08 10:09 | IPNPDOC ---
PM&R Progress Note DATE OF SERVICE: Jul 08, 2021 [employer] Progress Note Subjective: patient stating she would prefer not to go up on her total daily dose of gabapentin until she speaks with her kidney doctor in [place]. She is open to breaking up her current dose to day and night. REVIEW OF SYSTEMS: The following is a completed review of systems and has been reviewed. Review of systems otherwise unremarkable. PAIN: Patient self reports left foot pain and right knee pain EYES: No recent vision changes EARS, NOSE, & THROAT: No throat pain, or dysphagia, or rhinorrhea CARDIOVASCULAR: Denies chest pain or palpitations PULMONARY: Denies shortness of breath GASTROINTESTINAL: Denies constipation/diarrhea GENITOURINARY: denies dysuria MUSCULOSKELETAL: left foot fracture NEUROLOGICAL: +peripheral polyneuropathy HEMATOLOGICAL: +anemia SKIN: denies rash PSYCHIATRIC: Unremarkable All other review of systems found to be negative. PHYSICAL EXAMINATION: VITAL SIGNS: Please see below. GENERAL: Pleasant and cooperative. No acute distress. HEENT: PERRL. Extraocular movements intact. Clear conjunctiva CARDIOVASCULAR: Regular rate and rhythm. No murmurs, rubs, or gallops LUNGS: Clear to auscultation bilaterally. No wheezes. No rhonchi ABDOMEN: Soft, nontender, nondistended. Positive bowel sounds. Normal active bowel sounds NEUROLOGICAL: Alert and oriented times three. Cranial nerves II through XII grossly intact. Sensation decreased to light touch in stocking pattern EXTREMITIES: 5\5 strength bilateral upper extremities. 4+\5 strength right lower extremity. 4+/5 left hip flexor and knee extension, able to wiggle toes on left (ankle/calf casted) left toes ecchymotic, warm well perfused, not painful to touch ASSESSMENT:71-year-old F with past medical history of DM with peripheral polyneuropathy, CKD who presents status post fall with left foot fracture PLAN: 1. Rehab- PT/OT advance mobility and ADLs, strengthen/stretch/maintain ROM all 4 limbs, ambulating with RW 2. Neuro- hx of peripheral polyneuropathy due to DM with gait and mobility impairments, cont therapy 3. Ortho s/p fall with left lisfranc foot fracture cont NWB, f/u ortho on d/c 4. Cardiac- hx of HTN cont BP meds -hx of diastolic CHF cont daily weights, fluid restriction, diuretic -HLD cont statin -ASA for cardioprotection -medicine consulted to assist in overall management 5. Resp- monitor for infection 6. GI hx of LOPEZ followed by GI in [place] -+GI bleed, monitor H/H while inhouse, patient planning to f/u with Dr. Hoffman in [place] for colonoscopy -protonix BID 7. REnal- CKD with CALE, renal consulted to assist in management, recs appreciated 8. Pain- tylenol, oxycodone, gabapentin (change to 200mg BID) 9. DVT ppx- heparin 10. DIspo- tbd Allergies Coded Allergies: Sulfa (Sulfonamide Antibiotics) (Verified Allergy, Intermediate, HIVES, 07/16/19) tetracycline (Verified Allergy, Intermediate, HIVES, 07/16/19) bee venom protein (honey bee) (Verified Allergy, Unknown, SWELLING, 07/16/19) Vital Signs Vital Signs Date Time Temp Pulse Resp B/P (MAP) Pulse Ox O2 Delivery O2 Flow Rate FiO2 07/08/21 06:00 97.7 72 18 136/63 (87) 96 Room Air Laboratory Data Labs 24H Laboratory Tests 2 07/07/21 12:12: Bedside Glucose (Misc Panel) 252H 07/07/21 17:05: Bedside Glucose (Misc Panel) 134H 07/07/21 19:56: Bedside Glucose (Misc Panel) 155H 07/08/21 06:06: Bedside Glucose (Misc Panel) 108 Current Medications Current Medications Current Medications Medications (Trade) Dose Ordered Sig/Rani Route PRN Reason Start Time Stop Time Status Last Admin Dose Admin Acetaminophen (Tylenol Tab) 500 mg TID PO 07/03/21 16:00 07/08/21 08:49 Acetaminophen (Tylenol Tab) 1,000 mg TID PO 07/01/21 21:00 07/03/21 10:42 DC 07/03/21 08:53 Allopurinol (Zyloprim) 100 mg BID PO 07/01/21 21:00 07/05/21 17:06 DC 07/05/21 10:26 Allopurinol (Zyloprim) 150 mg BID PO 07/05/21 21:00 07/08/21 08:48 Aspirin (Ecotrin) 81 mg QHS PO 07/01/21 21:00 07/07/21 21:59 Benzonatate (Tessalon Perles) 100 mg TIDP PRN PO COUGH 07/01/21 16:15 07/03/21 08:52 Bisacodyl (Dulcolax Suppository) 10 mg DAILYPRN PRN [place] CONSTIPATION 07/01/21 16:15 Cetirizine HCl (ZyrTEC) 10 mg DAILY PO 07/02/21 09:00 07/08/21 08:48 Darbepoetin Tono (Aranesp) 100 mcg Mo@09 SC 07/07/21 09:00 07/07/21 08:54 Dextrose (Dextrose 50%) 25 ml ASDIRECTED PRN IV SEE LABEL COMMENTS 07/01/21 16:15 Docusate Sodium (Colace) 100 mg BID PO 07/01/21 21:00 07/07/21 08:54 Ferrous Gluconate (Fergon) 324 mg DAILY PO 07/02/21 09:00 07/08/21 08:48 Gabapentin (Neurontin) 400 mg QHS PO 07/01/21 21:00 07/07/21 21:59 Glucagon (Glucagon) 1 mg ASDIRECTED PRN SC SEE LABEL COMMENTS 07/01/21 16:15 Glucose (Glucose) 16 GM ASDIRECTED PRN PO SEE LABEL COMMENTS 07/01/21 16:15 Heparin Sodium (Porcine) (Heparin) 5,000 units Q8H SC 07/01/21 22:00 07/08/21 05:23 Home Med (Home Med List Complete!) ASDIRECTED XX 07/01/21 17:35 07/01/21 18:02 DC Hydroxyzine HCl (Atarax) 25 mg QHS PO 07/01/21 21:00 07/07/21 22:00 Metoprolol Succinate (TopROL XL) 50 mg QHS PO 07/01/21 21:00 07/06/21 20:22 Multivitamins (Theragram-M) 1 tab DAILY PO 07/02/21 09:00 07/08/21 08:48 Oxycodone HCl (Roxicodone, Oxyir) 5 mg Q4HP PRN PO MODERATE PAIN (PS 5-7) 07/01/21 16:15 Pantoprazole Sodium (Protonix) 40 mg BID PO 07/01/21 21:00 07/08/21 08:48 Polyethylene Glycol (Miralax) 1 pkt DAILY PRN PO CONSTIPATION 07/01/21 16:15 Potassium Phos/ Sodium Phos (Neutra-Phos 1.5gm Packet) 1 pkt TID PO 07/01/21 21:00 07/08/21 08:48 Senna (Senokot) 1 tab QHS PO 07/01/21 21:00 07/05/21 21:20 Simvastatin (Zocor) 20 mg QHS PO 07/01/21 21:00 07/07/21 21:59 Spironolactone (Aldactone) 50 mg DAILY PO 07/02/21 09:00 07/08/21 08:49 Torsemide (Demadex) 30 mg BID@,17 PO 07/02/21 17:00 07/03/21 12:31 DC 07/03/21 08:53 Torsemide (Demadex) 50 mg BID@,17 PO 07/03/21 17:00 07/08/21 08:48 Torsemide (Demadex) 50 mg DAILY PO 07/02/21 09:00 07/02/21 12:10 DC 07/02/21 08:48 DESI ROSS MD Jul 08, 2021 10:09
--- NOTE | 2021-07-08 12:54 | IPNPDOC ---
Subjective CC/HPI The patient is a 71-year-old female admitted with a reason for visit of Pedro ledesma. Events since last encounter She reports pain in Lt big toe. Feels like it is gout. Edema is improving General: Reports: ROS Unobtainable; Denies: Chills, Night Sweats, Fatigue, Malaise, Normal Appetite, Other Symptoms Constitutional: Denies: Chills, Fever, Malaise, Night Sweats, Weakness, Fatigue, Weight Loss, Lethargy, Other Eyes: Denies: Pain, Vision change, Conjunctivae inflammation, Eyelid inflammation, Redness, Other ENT: Denies: Head Aches, Ear Pain, Dysphagia, Sinus Congestion, Post Nasal Drip, Sore Throat, Epistaxis, Other Symptoms Skin: Denies: Rash, Lesions, Jaundice, Bruising, Itching, Dry, Breakdown, Nail Changes, Other Pulmonary: Denies: Dyspnea, Cough, Pleuritic Chest Pain, Other Symptoms Cardiovascular: Denies: Chest Pain, Palpitations, Orthopnea, Paroxysmal Noc. Dyspnea, Edema, Lt Headedness, Other Symptoms Gastrointestinal: Denies: Nausea, Vomiting, Abdominal Pain, Diarrhea, Constipation, Melena, Hematochezia, Other Symptoms Genitourinary: Denies: Dysuria, Frequency, Incontinence, Hematuria, Retention, Other Symptoms Hematologic: Denies: Bruising, Bleeding Excessively, Petecchia, Purpura, Enlarged Lymph Nodes, Other Hematologic Endocrine: Denies: Polydipsia, Polyphagia, Polyuria, Heat Intolerance, Cold Intolerance, Other Endocrine Sx Musculoskeletal: Reports: Joint Pain (Lt big toe) Neurological: Denies: Weakness, Numbness, Incoordination, Change in speech, Confusion, Seizures, Other Symptoms Psych: Reports: Mood Normal Objective Physical Examination General Exam: Alert, No Acute Distress, Other (Obese body habitus) EYE EXAM: PERRLA, Conjunctiva & lids normal, EOMI ENT EXAM: Atraumatic, Mucous membr. moist/pink Neck Exam: Supple, JVD Chest Exam: Clear to auscultation, Normal air movement Heart Exam: Rate Normal, Normal S1, Normal S2 ABDOMEN EXAM: Normal bowel sounds, Soft; No: Tenderness Extremity Exam: Clubbing, Edema (Lt >Rt), Other (Lt leg bandage noted, Lt big toe with mild tenderness) Skin Exam: Nl turgor and temperature; No: Rash Neuro Exam: Normal Speech, Strength at 5/5 X4 ext Psych Exam: Mental status NL, Mood NL Vital Signs/I&O Vital Signs Date Time Temp Pulse Resp B/P (MAP) Pulse Ox O2 Delivery O2 Flow Rate FiO2 07/08/21 06:00 97.7 72 18 136/63 (87) 96 Room Air I&O- Last 24 Hours up to 6 AM 07/08/21 06:00 Intake Total 1950 ml Balance 1950 ml Laboratory Data Labs 24H Laboratory Tests 2 07/07/21 17:05: Bedside Glucose (Misc Panel) 134H 07/07/21 19:56: Bedside Glucose (Misc Panel) 155H 07/08/21 06:06: Bedside Glucose (Misc Panel) 108 07/08/21 11:41: Bedside Glucose (Misc Panel) 167H FSBS Laboratory Tests Test 07/07/21 17:05 07/07/21 19:56 07/08/21 06:06 07/08/21 11:41 Range/Units Bedside Glucose (Misc Panel) 134 155 108 167 80-115 MG/DL Current Medications Current Medications Medications (Trade) Dose Ordered Sig/Rani Route PRN Reason Start Time Stop Time Status Last Admin Dose Admin Acetaminophen (Tylenol Tab) 500 mg TID PO 07/03/21 16:00 07/08/21 08:49 Acetaminophen (Tylenol Tab) 1,000 mg TID PO 07/01/21 21:00 07/03/21 10:42 DC 07/03/21 08:53 Allopurinol (Zyloprim) 100 mg BID PO 07/01/21 21:00 07/05/21 17:06 DC 07/05/21 10:26 Allopurinol (Zyloprim) 150 mg BID PO 07/05/21 21:00 07/08/21 08:48 Aspirin (Ecotrin) 81 mg QHS PO 07/01/21 21:00 07/07/21 21:59 Benzonatate (Tessalon Perles) 100 mg TIDP PRN PO COUGH 07/01/21 16:15 07/03/21 08:52 Bisacodyl (Dulcolax Suppository) 10 mg DAILYPRN PRN [place] CONSTIPATION 07/01/21 16:15 Cetirizine HCl (ZyrTEC) 10 mg DAILY PO 07/02/21 09:00 07/08/21 08:48 Darbepoetin Tono (Aranesp) 100 mcg Mo@09 SC 07/07/21 09:00 07/07/21 08:54 Dextrose (Dextrose 50%) 25 ml ASDIRECTED PRN IV SEE LABEL COMMENTS 07/01/21 16:15 Docusate Sodium (Colace) 100 mg BID PO 07/01/21 21:00 07/07/21 08:54 Ferrous Gluconate (Fergon) 324 mg DAILY PO 07/02/21 09:00 07/08/21 08:48 Gabapentin (Neurontin) 400 mg QHS PO 07/01/21 21:00 07/07/21 21:59 Glucagon (Glucagon) 1 mg ASDIRECTED PRN SC SEE LABEL COMMENTS 07/01/21 16:15 Glucose (Glucose) 16 GM ASDIRECTED PRN PO SEE LABEL COMMENTS 07/01/21 16:15 Heparin Sodium (Porcine) (Heparin) 5,000 units Q8H SC 07/01/21 22:00 07/08/21 05:23 Home Med (Home Med List Complete!) ASDIRECTED XX 07/01/21 17:35 07/01/21 18:02 DC Hydroxyzine HCl (Atarax) 25 mg QHS PO 07/01/21 21:00 07/07/21 22:00 Metoprolol Succinate (TopROL XL) 50 mg QHS PO 07/01/21 21:00 07/06/21 20:22 Multivitamins (Theragram-M) 1 tab DAILY PO 07/02/21 09:00 07/08/21 08:48 Oxycodone HCl (Roxicodone, Oxyir) 5 mg Q4HP PRN PO MODERATE PAIN (PS 5-7) 07/01/21 16:15 Pantoprazole Sodium (Protonix) 40 mg BID PO 07/01/21 21:00 07/08/21 08:48 Polyethylene Glycol (Miralax) 1 pkt DAILY PRN PO CONSTIPATION 07/01/21 16:15 Potassium Phos/ Sodium Phos (Neutra-Phos 1.5gm Packet) 1 pkt TID PO 07/01/21 21:00 07/08/21 08:48 Senna (Senokot) 1 tab QHS PO 07/01/21 21:00 07/05/21 21:20 Simvastatin (Zocor) 20 mg QHS PO 07/01/21 21:00 07/07/21 21:59 Spironolactone (Aldactone) 50 mg DAILY PO 07/02/21 09:00 07/08/21 08:49 Torsemide (Demadex) 30 mg BID@09,17 PO 07/02/21 17:00 07/03/21 12:31 DC 07/03/21 08:53 Torsemide (Demadex) 50 mg BID@,17 PO 07/03/21 17:00 07/08/21 08:48 Torsemide (Demadex) 50 mg DAILY PO 07/02/21 09:00 07/02/21 12:10 DC 07/02/21 08:48 Allergies Coded Allergies: Sulfa (Sulfonamide Antibiotics) (Verified Allergy, Intermediate, HIVES, 07/16/19) tetracycline (Verified Allergy, Intermediate, HIVES, 07/16/19) bee venom protein (honey bee) (Verified Allergy, Unknown, SWELLING, 07/16/19) Assessment/Plan Date Seen The patient was seen on 07/08/21 at 12:52. Plan / VTE VTE Prophylaxis Ordered?: Yes Plan Orders past 48 Hours Orders Fingerstick Blood Sugar (07/06/21 16:39) Darbepoetin (Aranesp) (07/07/21 09:00) Fingerstick Blood Sugar (07/06/21 20:23) Fingerstick Blood Sugar (07/07/21 06:00) Cbc With Differential (07/09/21 06:00) Basic Metabolic Profile (07/09/21 06:00) Fingerstick Blood Sugar (07/07/21 12:12) Fingerstick Blood Sugar (07/07/21 17:05) Fingerstick Blood Sugar (07/07/21 19:56) Fingerstick Blood Sugar (07/08/21 06:06) Uric Acid (07/09/21 06:00) Colchicine (Colcrys) (07/08/21 14:00) Fingerstick Blood Sugar (07/08/21 11:41) Plan Text CALE on CKD4 Anemia in CKD HFpEF, LVEF 60%, Grade 1 diastolic dysfunction Leg edema Acute Gout Lt big toe Cont current dose of Torsemide and spironolactone. Avoid metolazone for now, allopurinol increased due to high dose diuretic. AGNES started for anemia. check uric acid in AM. Colchicine 0.6 mg one dose today. JOSE BANEGAS MD Jul 08, 2021 12:54
[2021-07-08 14:00] VITALS: BP 160/65
[2021-07-08] MEDS ORDERED: COLCHICINE 0.6 MG TABLET PO ONE (14:00)
[2021-07-08 20:00] VITALS: BP 126/60
[2021-07-08] MEDS: SIMVASTATIN 20 MG TAB PO SCH (21:54)
[2021-07-08] MEDS: SENNA 8.6 MG TAB (SENOKOT) PO SCH (21:54)
[2021-07-08] MEDS: ASPIRIN 81MG ENTERIC TABLET PO SCH (21:54)
[2021-07-08] MEDS: METOPROLOL SUCC (TopROL XL) 50MG **XL** TAB PO SCH (21:54)
[2021-07-08] MEDS: GABAPENTIN 100 MG CAP PO SCH (21:55)
[2021-07-08] MEDS: hydrOXYzine 25 MG TAB PO SCH (21:55)
[2021-07-09] MEDS: HEPARIN SOD (PORCINE) 5000UNITS/ML 1ML VIAL/SYRINGE SC SCH ×3 (05:10→20:11)
[2021-07-09 06:00] VITALS: BP 114/57
[2021-07-09 07:50] LABS: BASO % 0.6 % (0.0-1.0); EOS # 0.3 10^3/uL (0.0-0.5); EOS % 6.1 % (0.0-3.0); HEMATOCRIT 31.3 % (36.0-47.0); HEMOGLOBIN 10.1 g/dl (12.0-15.5); LYMPH # 1.7 10^3/uL (1.5-5.0); LYMPH % 34.1 % (24.0-44.0); MEAN CORPUSCULAR HEMOGLOBIN 32.5 pg (27.0-33.0); MEAN CORPUSCULAR HGB CONC 32.3 g/dl (32.0-36.5); MEAN CORPUSCULAR VOLUME 100.6 fl (80.0-96.0); MONO # 0.5 10^3/uL (0.0-0.8); MONO % 9.2 % (2.0-8.0); NEUTROPHILS # 2.5 10^3/uL (1.5-8.5); NEUTROPHILS % 49.6 % (36.0-66.0); PLATELET COUNT, AUTOMATED 148 10^3/uL (150-450); RED BLOOD COUNT 3.11 10^6/uL (4.00-5.40); WHITE BLOOD COUNT 5.1 10^3/uL (4.0-10.0)
[2021-07-09 08:14] LABS: CREATININE FOR GFR 2.61 MG/DL (0.55-1.30); GLOMERULAR FILTRATION RATE 19.3 (>45); POTASSIUM SERUM 4.3 MEQ/L (3.5-5.1); URIC ACID 6.5 MG/DL (2.6-6.0)
[2021-07-09] MEDS: PANTOPRAZOLE 40MG TAB (PROTONIX) PO SCH ×2 (08:27→20:11)
[2021-07-09] MEDS: ACETAMINOPHEN 500 MG TAB PO SCH ×3 (08:27→20:12)
[2021-07-09] MEDS: CETIRIZINE (ZyrTEC) 10 MG TAB PO SCH (08:27)
[2021-07-09] MEDS: TORSEMIDE (DEMADEX) 50 MG PER 1/2 TAB PO SCH (08:28)
[2021-07-09] MEDS: SPIRONOLACTONE 50 MG TAB PO SCH (08:28)
[2021-07-09] MEDS: MULTIVITAMINS/MINERALS THERAP 1 TAB PO SCH (08:28)
[2021-07-09] MEDS: GABAPENTIN 100 MG CAP PO SCH ×2 (08:28→20:11)
[2021-07-09] MEDS: FERROUS GLUCONATE 324 MG TAB PO SCH (08:28)
[2021-07-09] MEDS: allopurinoL 300 MG TAB PO SCH ×2 (08:28→20:12)
[2021-07-09] MEDS: NEUTRA-PHOS 1.5 GM PACKET PO SCH ×3 (08:29→20:11)
[2021-07-09] MEDS: DOCUSATE SODIUM 100MG CAPSULE PO SCH ×2 (08:29→20:14)
[2021-07-09] MEDS: REMEDY PHYTOPLEX Z-GUARD PASTE 113GM TUBE (FROM STOREROOM PRODUCT) TOP SCH ×3 (08:33→20:13)
--- NOTE | 2021-07-09 10:43 | IPNPDOC ---
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 REVIEW OF SYSTEMS: The following is a completed review of systems and has been reviewed. Review of systems otherwise unremarkable. PAIN: Patient self reports left foot pain and right knee pain EYES: No recent vision changes EARS, NOSE, & THROAT: No throat pain, or dysphagia, or rhinorrhea CARDIOVASCULAR: Denies chest pain or palpitations PULMONARY: Denies shortness of breath GASTROINTESTINAL: Denies constipation/diarrhea GENITOURINARY: denies dysuria MUSCULOSKELETAL: left foot fracture NEUROLOGICAL: +peripheral polyneuropathy HEMATOLOGICAL: +anemia SKIN: denies rash PSYCHIATRIC: Unremarkable All other review of systems found to be negative. PHYSICAL EXAMINATION: VITAL SIGNS: Please see below. GENERAL: Pleasant and cooperative. No acute distress. HEENT: PERRL. Extraocular movements intact. Clear conjunctiva CARDIOVASCULAR: Regular rate and rhythm. No murmurs, rubs, or gallops LUNGS: Clear to auscultation bilaterally. No wheezes. No rhonchi ABDOMEN: Soft, nontender, nondistended. Positive bowel sounds. Normal active bowel sounds NEUROLOGICAL: Alert and oriented times three. Cranial nerves II through XII grossly intact. Sensation decreased to light touch in stocking pattern EXTREMITIES: 5\5 strength bilateral upper extremities. 4+\5 strength right lower extremity. 4+/5 left hip flexor and knee extension, able to wiggle toes on left (ankle/calf casted) left toes ecchymotic, warm well perfused, not painful to touch ASSESSMENT:71-year-old F with past medical history of DM with peripheral polyneuropathy, CKD who presents status post fall with left foot fracture PLAN: 1. Rehab- PT/OT advance mobility and ADLs, strengthen/stretch/maintain ROM all 4 limbs, ambulating with RW 2. Neuro- hx of peripheral polyneuropathy due to DM with gait and mobility impairments, cont therapy 3. Ortho s/p fall with left lisfranc foot fracture cont NWB, f/u ortho on d/c 4. Cardiac- hx of HTN cont BP meds -hx of diastolic CHF cont daily weights, fluid restriction, diuretic -HLD cont statin -ASA for cardioprotection -medicine consulted to assist in overall management 5. Resp- monitor for infection 6. GI hx of LOPEZ followed by GI in [place] -+GI bleed, monitor H/H while inhouse, patient planning to f/u with Dr. Hoffman in [place] for colonoscopy -protonix BID 7. REnal- CKD with CALE, renal consulted to assist in management, recs appreciated 8. Pain- tylenol, oxycodone, gabapentin (changed to 200mg BID), colchicine ordered by renal out of concern for gout flare in D1 toe 9. DVT ppx- heparin 10. DIspo- 07-11-21 to home progressing towards goals Allergies Coded Allergies: Sulfa (Sulfonamide Antibiotics) (Verified Allergy, Intermediate, HIVES, 07/16/19) tetracycline (Verified Allergy, Intermediate, HIVES, 07/16/19) bee venom protein (honey bee) (Verified Allergy, Unknown, SWELLING, 07/16/19) Vital Signs Vital Signs Date Time Temp Pulse Resp B/P (MAP) Pulse Ox O2 Delivery O2 Flow Rate FiO2 07/09/21 06:00 97.3 68 18 114/57 (76) 100 Room Air Laboratory Data CBC/BMP Laboratory Tests 07/09/21 07:25 Labs 24H Laboratory Tests 2 07/08/21 11:41: Bedside Glucose (Misc Panel) 167H 07/08/21 16:44: Bedside Glucose (Misc Panel) 254H 07/08/21 20:01: Bedside Glucose (Misc Panel) 278H 07/09/21 07:25: Immature Granulocyte % (Auto) 0.4, Neutrophils (%) (Auto) 49.6, Lymphocytes (%) (Auto) 34.1, Monocytes (%) (Auto) 9.2H, Eosinophils (%) (Auto) 6.1H, Basophils (%) (Auto) 0.6, Neutrophils # (Auto) 2.5, Lymphocytes # (Auto) 1.7, Monocytes # (Auto) 0.5, Eosinophils # (Auto) 0.3, Basophils # (Auto) 0.0, Nucleated Red Blood Cells % (auto) 0.8H, Anion Gap 9, Glomerular Filtration Rate 19.3L, Uric Acid 6.5H, Calcium Level 9.0 Current Medications Current Medications Current Medications Medications (Trade) Dose Ordered Sig/Rani Route PRN Reason Start Time Stop Time Status Last Admin Dose Admin Acetaminophen (Tylenol Tab) 500 mg TID PO 07/03/21 16:00 07/09/21 08:27 Acetaminophen (Tylenol Tab) 1,000 mg TID PO 07/01/21 21:00 07/03/21 10:42 DC 07/03/21 08:53 Allopurinol (Zyloprim) 100 mg BID PO 07/01/21 21:00 07/05/21 17:06 DC 07/05/21 10:26 Allopurinol (Zyloprim) 150 mg BID PO 07/05/21 21:00 07/09/21 08:28 Aspirin (Ecotrin) 81 mg QHS PO 07/01/21 21:00 07/08/21 21:54 Benzonatate (Tessalon Perles) 100 mg TIDP PRN PO COUGH 07/01/21 16:15 07/03/21 08:52 Bisacodyl (Dulcolax Suppository) 10 mg DAILYPRN PRN [place] CONSTIPATION 07/01/21 16:15 Cetirizine HCl (ZyrTEC) 10 mg DAILY PO 07/02/21 09:00 07/09/21 08:27 Darbepoetin Tono (Aranesp) 100 mcg Mo@09 SC 07/07/21 09:00 07/07/21 08:54 Dextrose (Dextrose 50%) 25 ml ASDIRECTED PRN IV SEE LABEL COMMENTS 07/01/21 16:15 Docusate Sodium (Colace) 100 mg BID PO 07/01/21 21:00 07/07/21 08:54 Ferrous Gluconate (Fergon) 324 mg DAILY PO 07/02/21 09:00 07/09/21 08:28 Gabapentin (Neurontin) 200 mg BID PO 07/08/21 21:00 07/09/21 08:28 Gabapentin (Neurontin) 400 mg QHS PO 07/01/21 21:00 07/08/21 14:46 DC 07/07/21 21:59 Glucagon (Glucagon) 1 mg ASDIRECTED PRN SC SEE LABEL COMMENTS 07/01/21 16:15 Glucose (Glucose) 16 GM ASDIRECTED PRN PO SEE LABEL COMMENTS 07/01/21 16:15 Heparin Sodium (Porcine) (Heparin) 5,000 units Q8H SC 07/01/21 22:00 07/09/21 05:10 Home Med (Home Med List Complete!) ASDIRECTED XX 07/01/21 17:35 07/01/21 18:02 DC Hydroxyzine HCl (Atarax) 25 mg QHS PO 07/01/21 21:00 07/08/21 21:55 Metoprolol Succinate (TopROL XL) 50 mg QHS PO 07/01/21 21:00 07/08/21 21:54 Multivitamins (Theragram-M) 1 tab DAILY PO 07/02/21 09:00 07/09/21 08:28 Oxycodone HCl (Roxicodone, Oxyir) 5 mg Q4HP PRN PO MODERATE PAIN (PS 5-7) 07/01/21 16:15 Pantoprazole Sodium (Protonix) 40 mg BID PO 07/01/21 21:00 07/09/21 08:27 Polyethylene Glycol (Miralax) 1 pkt DAILY PRN PO CONSTIPATION 07/01/21 16:15 Potassium Phos/ Sodium Phos (Neutra-Phos 1.5gm Packet) 1 pkt TID PO 07/01/21 21:00 07/09/21 08:29 Senna (Senokot) 1 tab QHS PO 07/01/21 21:00 07/08/21 21:54 Simvastatin (Zocor) 20 mg QHS PO 07/01/21 21:00 07/08/21 21:54 Spironolactone (Aldactone) 50 mg DAILY PO 07/02/21 09:00 07/09/21 08:28 Torsemide (Demadex) 30 mg BID@,17 PO 07/02/21 17:00 07/03/21 12:31 DC 07/03/21 08:53 Torsemide (Demadex) 40 mg BID@,17 PO 07/09/21 17:00 Torsemide (Demadex) 50 mg BID@09,17 PO 07/03/21 17:00 07/09/21 09:15 DC 07/09/21 08:28 Torsemide (Demadex) 50 mg DAILY PO 07/02/21 09:00 07/02/21 12:10 DC 07/02/21 08:48 DESI ROSS MD Jul 09, 2021 10:43
[2021-07-09 14:00] VITALS: BP 132/62
[2021-07-09] MEDS: COLCHICINE 0.6 MG TABLET PO SCH (14:47)
[2021-07-09] MEDS: TORSEMIDE 20 MG TAB PO SCH (16:04)
[2021-07-09 20:00] VITALS: BP 128/58
[2021-07-09] MEDS: ASPIRIN 81MG ENTERIC TABLET PO SCH (20:11)
[2021-07-09] MEDS: SIMVASTATIN 20 MG TAB PO SCH (20:11)
[2021-07-09] MEDS: hydrOXYzine 25 MG TAB PO SCH (20:12)
[2021-07-09] MEDS: METOPROLOL SUCC (TopROL XL) 50MG **XL** TAB PO SCH (20:13)
[2021-07-09] MEDS: SENNA 8.6 MG TAB (SENOKOT) PO SCH (20:13)
--- NOTE | 2021-07-09 21:54 | IPNPDOC ---
Subjective CC/HPI The patient is a 71-year-old female admitted with a reason for visit of Polynueropathy. Events since last encounter Pt feels much better. Edema is almost resolved. Renal function deteriorating. Cr 2.4-->2.6 now. Still c/o mild pain Lt big toe. General: Reports: ROS Unobtainable; Denies: Chills, Night Sweats, Fatigue, Malaise, Normal Appetite, Other Symptoms Constitutional: Denies: Chills, Fever, Malaise, Night Sweats, Weakness, Fatigue, Weight Loss, Lethargy, Other Eyes: Denies: Pain, Vision change, Conjunctivae inflammation, Eyelid inflammation, Redness, Other ENT: Denies: Head Aches, Ear Pain, Dysphagia, Sinus Congestion, Post Nasal Drip, Sore Throat, Epistaxis, Other Symptoms Skin: Denies: Rash, Lesions, Jaundice, Bruising, Itching, Dry, Breakdown, Nail Changes, Other Pulmonary: Denies: Dyspnea, Cough, Pleuritic Chest Pain, Other Symptoms Cardiovascular: Denies: Chest Pain, Palpitations, Orthopnea, Paroxysmal Noc. Dyspnea, Edema, Lt Headedness, Other Symptoms Gastrointestinal: Denies: Nausea, Vomiting, Abdominal Pain, Diarrhea, Constipation, Melena, Hematochezia, Other Symptoms Genitourinary: Denies: Dysuria, Frequency, Incontinence, Hematuria, Retention, Other Symptoms Hematologic: Denies: Bruising, Bleeding Excessively, Petecchia, Purpura, Enlarged Lymph Nodes, Other Hematologic Musculoskeletal: Reports: Joint Pain (Lt big toe) Neurological: Denies: Weakness, Numbness Psych: Reports: Mood Normal Objective Physical Examination General Exam: Alert, No Acute Distress, Other (Obese body habitus) EYE EXAM: PERRLA, Conjunctiva & lids normal, EOMI ENT EXAM: Atraumatic, Mucous membr. moist/pink Neck Exam: Supple, JVD Chest Exam: Clear to auscultation, Normal air movement Heart Exam: Rate Normal, Normal S1, Normal S2 ABDOMEN EXAM: Normal bowel sounds, Soft; No: Tenderness Extremity Exam: Clubbing, Edema (Lt >Rt), Other (Lt leg bandage noted, Lt big toe with mild tenderness) Skin Exam: Nl turgor and temperature; No: Rash Neuro Exam: Normal Speech, Strength at 5/5 X4 ext Psych Exam: Mental status NL, Mood NL Vital Signs/I&O Vital Signs Date Time Temp Pulse Resp B/P (MAP) Pulse Ox O2 Delivery O2 Flow Rate FiO2 07/09/21 20:13 72 134/68 07/09/21 20:00 97.0 19 96 Room Air l I&O- Last 24 Hours up to 6 AM 07/09/21 06:00 Intake Total 1140 ml Output Total 200 ml Balance 940 ml Laboratory Data Labs 24H Laboratory Tests 2 07/09/21 07:25: Immature Granulocyte % (Auto) 0.4, Neutrophils (%) (Auto) 49.6, Lymphocytes (%) (Auto) 34.1, Monocytes (%) (Auto) 9.2H, Eosinophils (%) (Auto) 6.1H, Basophils (%) (Auto) 0.6, Neutrophils # (Auto) 2.5, Lymphocytes # (Auto) 1.7, Monocytes # (Auto) 0.5, Eosinophils # (Auto) 0.3, Basophils # (Auto) 0.0, Nucleated Red Blood Cells % (auto) 0.8H, Anion Gap 9, Glomerular Filtration Rate 19.3L, Uric Acid 6.5H, Calcium Level 9.0 07/09/21 11:55: Bedside Glucose (Misc Panel) 219H 07/09/21 16:41: Bedside Glucose (Misc Panel) 260H 07/09/21 19:26: Bedside Glucose (Misc Panel) 194H CBC/BMP Laboratory Tests 07/09/21 07:25 FSBS Laboratory Tests Test 07/09/21 11:55 07/09/21 16:41 07/09/21 19:26 Range/Units Bedside Glucose (Misc Panel) 219 260 194 80-115 MG/DL Current Medications Current Medications Medications (Trade) Dose Ordered Sig/Rani Route PRN Reason Start Time Stop Time Status Last Admin Dose Admin Acetaminophen (Tylenol Tab) 500 mg TID PO 07/03/21 16:00 07/09/21 20:12 Acetaminophen (Tylenol Tab) 1,000 mg TID PO 07/01/21 21:00 07/03/21 10:42 DC 07/03/21 08:53 Allopurinol (Zyloprim) 100 mg BID PO 07/01/21 21:00 07/05/21 17:06 DC 07/05/21 10:26 Allopurinol (Zyloprim) 150 mg BID PO 07/05/21 21:00 07/09/21 20:12 Aspirin (Ecotrin) 81 mg QHS PO 07/01/21 21:00 07/09/21 20:11 Benzonatate (Tessalon Perles) 100 mg TIDP PRN PO COUGH 07/01/21 16:15 07/03/21 08:52 Bisacodyl (Dulcolax Suppository) 10 mg DAILYPRN PRN IN CONSTIPATION 07/01/21 16:15 Cetirizine HCl (ZyrTEC) 10 mg DAILY PO 07/02/21 09:00 07/09/21 08:27 Colchicine (Colcrys) 0.3 mg DAILY PO 07/09/21 14:00 07/14/21 13:59 07/09/21 14:47 Darbepoetin Tono (Aranesp) 100 mcg Mo@09 SC 07/07/21 09:00 07/07/21 08:54 Dextrose (Dextrose 50%) 25 ml ASDIRECTED PRN IV SEE LABEL COMMENTS 07/01/21 16:15 Docusate Sodium (Colace) 100 mg BID PO 07/01/21 21:00 07/07/21 08:54 Ferrous Gluconate (Fergon) 324 mg DAILY PO 07/02/21 09:00 07/09/21 08:28 Gabapentin (Neurontin) 200 mg BID PO 07/08/21 21:00 07/09/21 20:11 Gabapentin (Neurontin) 400 mg QHS PO 07/01/21 21:00 07/08/21 14:46 DC 07/07/21 21:59 Glucagon (Glucagon) 1 mg ASDIRECTED PRN SC SEE LABEL COMMENTS 07/01/21 16:15 Glucose (Glucose) 16 GM ASDIRECTED PRN PO SEE LABEL COMMENTS 07/01/21 16:15 Heparin Sodium (Porcine) (Heparin) 5,000 units Q8H SC 07/01/21 22:00 07/09/21 20:11 Home Med (Home Med List Complete!) ASDIRECTED XX 07/01/21 17:35 07/01/21 18:02 DC Hydroxyzine HCl (Atarax) 25 mg QHS PO 07/01/21 21:00 07/09/21 20:12 Metoprolol Succinate (TopROL XL) 50 mg QHS PO 07/01/21 21:00 07/09/21 20:13 Multivitamins (Theragram-M) 1 tab DAILY PO 07/02/21 09:00 07/09/21 08:28 Oxycodone HCl (Roxicodone, Oxyir) 5 mg Q4HP PRN PO MODERATE PAIN (PS 5-7) 07/01/21 16:15 Pantoprazole Sodium (Protonix) 40 mg BID PO 07/01/21 21:00 07/09/21 20:11 Polyethylene Glycol (Miralax) 1 pkt DAILY PRN PO CONSTIPATION 07/01/21 16:15 Potassium Phos/ Sodium Phos (Neutra-Phos 1.5gm Packet) 1 pkt TID PO 07/01/21 21:00 07/09/21 20:11 Senna (Senokot) 1 tab QHS PO 07/01/21 21:00 07/08/21 21:54 Simvastatin (Zocor) 20 mg QHS PO 07/01/21 21:00 07/09/21 20:11 Spironolactone (Aldactone) 50 mg DAILY PO 07/02/21 09:00 07/09/21 08:28 Torsemide (Demadex) 30 mg BID@,17 PO 07/02/21 17:00 07/03/21 12:31 DC 07/03/21 08:53 Torsemide (Demadex) 40 mg BID@09,17 PO 07/09/21 17:00 07/09/21 16:04 Torsemide (Demadex) 50 mg BID@,17 PO 07/03/21 17:00 07/09/21 09:15 DC 07/09/21 08:28 Torsemide (Demadex) 50 mg DAILY PO 07/02/21 09:00 07/02/21 12:10 DC 07/02/21 08:48 Allergies Coded Allergies: Sulfa (Sulfonamide Antibiotics) (Verified Allergy, Intermediate, HIVES, 07/16/19) tetracycline (Verified Allergy, Intermediate, HIVES, 07/16/19) bee venom protein (honey bee) (Verified Allergy, Unknown, SWELLING, 9) Assessment/Plan Date Seen The patient was seen on 07/09/21 at 21:51. Plan / VTE VTE Prophylaxis Ordered?: Yes Plan Orders past 48 Hours Orders Fingerstick Blood Sugar (07/08/21 06:06) Colchicine (Colcrys) (07/08/21 14:00) Fingerstick Blood Sugar (07/08/21 11:41) Gabapentin (Neurontin) (07/08/21 21:00) Fingerstick Blood Sugar (07/08/21 16:44) Fingerstick Blood Sugar (07/08/21 20:01) Uric Acid (07/09/21 06:00) Torsemide (Demadex) (07/09/21 17:00) Cbc With Differential (07/11/21 06:00) Basic Metabolic Profile (07/11/21 06:00) Colchicine (Colcrys) (07/09/21 14:00) Fingerstick Blood Sugar (07/09/21 11:55) Room Privileges (Pm&R) (07/09/21 12:27) Fingerstick Blood Sugar (07/09/21 16:41) Fingerstick Blood Sugar (07/09/21 19:26) Plan Text CALE on CKD4. Worsening Cr Anemia in CKD HFpEF, LVEF 60%, Grade 1 diastolic dysfunction Leg edema-->improved Acute Gout Lt big toe Decrease Torsemide 40 mg bid and continue current spironolactone. Avoid metolazone for now.allopurinol to be increased if uric acid level stays high. start Colchicine 0.3 mg daily. JOSE BANEGAS MD Jul 09, 2021 21:54
[2021-07-10 05:35] VITALS: BP 130/60
[2021-07-10] MEDS: HEPARIN SOD (PORCINE) 5000UNITS/ML 1ML VIAL/SYRINGE SC SCH (05:58)
[2021-07-10] MEDS: NEUTRA-PHOS 1.5 GM PACKET PO SCH ×3 (08:20→21:31)
[2021-07-10] MEDS: MULTIVITAMINS/MINERALS THERAP 1 TAB PO SCH (08:21)
[2021-07-10] MEDS: GABAPENTIN 100 MG CAP PO SCH ×2 (08:21→21:34)
[2021-07-10] MEDS: CETIRIZINE (ZyrTEC) 10 MG TAB PO SCH (08:21)
[2021-07-10] MEDS: PANTOPRAZOLE 40MG TAB (PROTONIX) PO SCH ×2 (08:21→21:34)
[2021-07-10] MEDS: FERROUS GLUCONATE 324 MG TAB PO SCH (08:21)
[2021-07-10] MEDS: COLCHICINE 0.6 MG TABLET PO SCH (08:22)
[2021-07-10] MEDS: ACETAMINOPHEN 500 MG TAB PO SCH ×3 (08:22→21:34)
[2021-07-10] MEDS: allopurinoL 300 MG TAB PO SCH (08:22)
[2021-07-10] MEDS: TORSEMIDE 20 MG TAB PO SCH ×2 (08:22→16:43)
[2021-07-10] MEDS: DOCUSATE SODIUM 100MG CAPSULE PO SCH ×2 (08:23→21:00)
[2021-07-10] MEDS: REMEDY PHYTOPLEX Z-GUARD PASTE 113GM TUBE (FROM STOREROOM PRODUCT) TOP SCH ×3 (08:23→21:00)
[2021-07-10] MEDS: SPIRONOLACTONE 50 MG TAB PO SCH (08:23)
--- NOTE | 2021-07-10 09:21 | IPNPDOC ---
PM&R Progress Note DATE OF SERVICE: Jul 10, 2021 It Network Engineer Progress Note Subjective: Patient seen in her room stating her toe pain is better and she feels ready to go home tomorrow. REVIEW OF SYSTEMS: The following is a completed review of systems and has been reviewed. Review of systems otherwise unremarkable. PAIN: Patient self reports left foot pain and right knee pain EYES: No recent vision changes EARS, NOSE, & THROAT: No throat pain, or dysphagia, or rhinorrhea CARDIOVASCULAR: Denies chest pain or palpitations PULMONARY: Denies shortness of breath GASTROINTESTINAL: Denies constipation/diarrhea GENITOURINARY: denies dysuria MUSCULOSKELETAL: left foot fracture NEUROLOGICAL: +peripheral polyneuropathy HEMATOLOGICAL: +anemia SKIN: denies rash PSYCHIATRIC: Unremarkable All other review of systems found to be negative. PHYSICAL EXAMINATION: VITAL SIGNS: Please see below. GENERAL: Pleasant and cooperative. No acute distress. HEENT: PERRL. Extraocular movements intact. Clear conjunctiva CARDIOVASCULAR: Regular rate and rhythm. No murmurs, rubs, or gallops LUNGS: Clear to auscultation bilaterally. No wheezes. No rhonchi ABDOMEN: Soft, nontender, nondistended. Positive bowel sounds. Normal active b owel sounds NEUROLOGICAL: Alert and oriented times three. Cranial nerves II through XII grossly intact. Sensation decreased to light touch in stocking pattern EXTREMITIES: 5\5 strength bilateral upper extremities. 4+\5 strength right lower extremity. 4+/5 left hip flexor and knee extension, able to wiggle toes on left (ankle/calf casted) left toes ecchymotic, warm well perfused, not painful to touch ASSESSMENT:71-year-old F with past medical history of DM with peripheral polyneuropathy, CKD who presents status post fall with left foot fracture PLAN: 1. Rehab- PT/OT advance mobility and ADLs, strengthen/stretch/maintain ROM all 4 limbs, ambulating with RW 2. Neuro- hx of peripheral polyneuropathy due to DM with gait and mobility impairments, cont therapy 3. Ortho s/p fall with left lisfranc foot fracture cont NWB, f/u ortho on d/c 4. Cardiac- hx of HTN cont BP meds -hx of diastolic CHF cont daily weights, fluid restriction, diuretic -HLD cont statin -ASA for cardioprotection -medicine consulted to assist in overall management 5. Resp- monitor for infection 6. GI hx of LOPEZ followed by GI in [place] -+GI bleed, monitor H/H while inhouse, patient planning to f/u with Dr. Hoffman in [place] for colonoscopy -protonix BID 7. REnal- CKD with CALE, renal consulted to assist in management, recs appreciated 8. Pain- tylenol, oxycodone, gabapentin (changed to 200mg BID), colchicine ordered by renal out of concern for gout flare in D1 toe 9. DVT ppx- heparin 10. Dispo- 07-11-21 to home progressing towards goals Allergies Coded Allergies: Sulfa (Sulfonamide Antibiotics) (Verified Allergy, Intermediate, HIVES, 07/16/19) tetracycline (Verified Allergy, Intermediate, HIVES, 07/16/19) bee venom protein (honey bee) (Verified Allergy, Unknown, SWELLING, 07/16/19) Vital Signs Vital Signs Date Time Temp Pulse Resp B/P (MAP) Pulse Ox O2 Delivery O2 Flow Rate FiO2 07/10/21 05:35 98.3 66 18 130/60 (83) 93 Room Air Laboratory Data Labs 24H Laboratory Tests 2 07/09/21 11:55: Bedside Glucose (Misc Panel) 219H 07/09/21 16:41: Bedside Glucose (Misc Panel) 260H 07/09/21 19:26: Bedside Glucose (Misc Panel) 194H 07/10/21 05:41: Bedside Glucose (Misc Panel) 161H Current Medications Current Medications Current Medications Medications (Trade) Dose Ordered Sig/Rani Route PRN Reason Start Time Stop Time Status Last Admin Dose Admin Acetaminophen (Tylenol Tab) 500 mg TID PO 07/03/21 16:00 07/10/21 08:22 Acetaminophen (Tylenol Tab) 1,000 mg TID PO 07/01/21 21:00 07/03/21 10:42 DC 07/03/21 08:53 Allopurinol (Zyloprim) 100 mg BID PO 07/01/21 21:00 07/05/21 17:06 DC 07/05/21 10:26 Allopurinol (Zyloprim) 150 mg BID PO 07/05/21 21:00 07/10/21 08:22 Aspirin (Ecotrin) 81 mg QHS PO 07/01/21 21:00 07/09/21 20:11 Benzonatate (Tessalon Perles) 100 mg TIDP PRN PO COUGH 07/01/21 16:15 07/03/21 08:52 Bisacodyl (Dulcolax Suppository) 10 mg DAILYPRN PRN [place] CONSTIPATION 07/01/21 16:15 Cetirizine HCl (ZyrTEC) 10 mg DAILY PO 07/02/21 09:00 07/10/21 08:21 Colchicine (Colcrys) 0.3 mg DAILY PO 07/09/21 14:00 07/14/21 13:59 07/10/21 08:22 Darbepoetin Tono (Aranesp) 100 mcg Mo@09 SC 07/07/21 09:00 07/07/21 08:54 Dextrose (Dextrose 50%) 25 ml ASDIRECTED PRN IV SEE LABEL COMMENTS 07/01/21 16:15 Docusate Sodium (Colace) 100 mg BID PO 07/01/21 21:00 07/07/21 08:54 Ferrous Gluconate (Fergon) 324 mg DAILY PO 07/02/21 09:00 07/10/21 08:21 Gabapentin (Neurontin) 200 mg BID PO 07/08/21 21:00 07/10/21 08:21 Gabapentin (Neurontin) 400 mg QHS PO 07/01/21 21:00 07/08/21 14:46 DC 07/07/21 21:59 Glucagon (Glucagon) 1 mg ASDIRECTED PRN SC SEE LABEL COMMENTS 07/01/21 16:15 Glucose (Glucose) 16 GM ASDIRECTED PRN PO SEE LABEL COMMENTS 07/01/21 16:15 Heparin Sodium (Porcine) (Heparin) 5,000 units Q8H SC 07/01/21 22:00 07/10/21 05:58 Home Med (Home Med List Complete!) ASDIRECTED XX 07/01/21 17:35 07/01/21 18:02 DC Hydroxyzine HCl (Atarax) 25 mg QHS PO 07/01/21 21:00 07/09/21 20:12 Metoprolol Succinate (TopROL XL) 50 mg QHS PO 07/01/21 21:00 07/09/21 20:13 Multivitamins (Theragram-M) 1 tab DAILY PO 07/02/21 09:00 07/10/21 08:21 Oxycodone HCl (Roxicodone, Oxyir) 5 mg Q4HP PRN PO MODERATE PAIN (PS 5-7) 07/01/21 16:15 Pantoprazole Sodium (Protonix) 40 mg BID PO 07/01/21 21:00 07/10/21 08:21 Polyethylene Glycol (Miralax) 1 pkt DAILY PRN PO CONSTIPATION 07/01/21 16:15 Potassium Phos/ Sodium Phos (Neutra-Phos 1.5gm Packet) 1 pkt TID PO 07/01/21 21:00 07/10/21 08:20 Senna (Senokot) 1 tab QHS PO 07/01/21 21:00 07/08/21 21:54 Simvastatin (Zocor) 20 mg QHS PO 07/01/21 21:00 07/09/21 20:11 Spironolactone (Aldactone) 50 mg DAILY PO 07/02/21 09:00 07/10/21 08:23 Torsemide (Demadex) 30 mg BID@, PO 07/02/21 17:00 07/03/21 12:31 DC 07/03/21 08:53 Torsemide (Demadex) 40 mg BID@, PO 07/09/21 17:00 07/10/21 08:22 Torsemide (Demadex) 50 mg BID@, PO 07/03/21 17:00 07/09/21 09:15 DC 07/09/21 08:28 Torsemide (Demadex) 50 mg DAILY PO 07/02/21 09:00 07/02/21 12:10 DC 07/02/21 08:48 DESI ROSS MD Jul 10, 2021 09:21
[2021-07-10 14:00] VITALS: BP 127/60
--- NOTE | 2021-07-10 15:04 | REP ---
INDICATION: recent fracture, immobility COMPARISON: None. TECHNIQUE: Real time compression and duplex Doppler interrogation of the bilateral lower extremity deep venous system is performed. Compression ultrasound is performed of the bilateral peroneal and posterior tibial veins. FINDINGS: Bilaterally, the common femoral, superficial femoral and popliteal veins are fully compressible with transducer pressure and demonstrate normal spontaneous and phasic flow, without evidence of deep venous thrombosis. No thrombus is seen in the bilateral visualized portions of the peroneal and posterior tibial veins. IMPRESSION: No evidence of deep venous thrombosis of the bilateral lower extremity femoral popliteal venous system. <Electronically signed by Celso Hyde > 07/10/21 1500
[2021-07-10 20:00] VITALS: BP 151/65
[2021-07-10] MEDS: SENNA 8.6 MG TAB (SENOKOT) PO SCH (21:00)
[2021-07-10 21:33] VITALS: BP 151/65
[2021-07-10] MEDS: METOPROLOL SUCC (TopROL XL) 50MG **XL** TAB PO SCH (21:33)
[2021-07-10] MEDS: ASPIRIN 81MG ENTERIC TABLET PO SCH (21:33)
[2021-07-10] MEDS: hydrOXYzine 25 MG TAB PO SCH (21:33)
[2021-07-10] MEDS: SIMVASTATIN 20 MG TAB PO SCH (21:33)
[2021-07-10] MEDS: allopurinoL 100 MG TAB PO SCH (21:35)
--- NOTE | 2021-07-10 21:50 | IPNPDOC ---
Subjective CC/HPI The patient is a 71-year-old female admitted with a reason for visit of Pedro ledesma. Events since last encounter Pt seen at bedside. She is feeling much better, Edema is controlled. Lt big toe pain is also better. General: Denies: Chills, Night Sweats Constitutional: Denies: Chills, Fever, Malaise Eyes: Denies: Pain ENT: Denies: Head Aches, Ear Pain Skin: Denies: Rash, Lesions Pulmonary: Denies: Dyspnea, Cough Cardiovascular: Denies: Chest Pain, Palpitations Gastrointestinal: Denies: Nausea, Vomiting Genitourinary: Denies: Dysuria, Frequency Hematologic: Denies: Bruising, Bleeding Excessively Musculoskeletal: Reports: Foot Pain (Lt big toe pain improving); Denies: Neck Pain Neurological: Denies: Numbness Psych: Reports: Mood Normal Objective Physical Examination General Exam: Alert, No Acute Distress, Other (Obese body habitus) EYE EXAM: PERRLA, Conjunctiva & lids normal, EOMI ENT EXAM: Atraumatic, Mucous membr. moist/pink Neck Exam: Supple, JVD Chest Exam: Clear to auscultation, Normal air movement Heart Exam: Rate Normal, Normal S1, Normal S2 ABDOMEN EXAM: Normal bowel sounds, Soft; No: Tenderness Extremity Exam: Clubbing, Edema (Tace), Other (Lt leg bandage noted, Lt big toe with mild tenderness) Skin Exam: Nl turgor and temperature; No: Rash Neuro Exam: Normal Speech, Strength at 5/5 X4 ext Psych Exam: Mental status NL, Mood NL Vital Signs/I&O Vital Signs Date Time Temp Pulse Resp B/P (MAP) Pulse Ox O2 Delivery O2 Flow Rate FiO2 07/10/21 21:33 70 151/65 07/10/21 20:00 98.3 18 97 Room Air I&O- Last 24 Hours up to 6 AM 07/10/21 06:00 Intake Total 960 ml Balance 960 ml Laboratory Data Labs 24H Laboratory Tests 2 07/10/21 05:41: Bedside Glucose (Misc Panel) 161H 07/10/21 12:28: Bedside Glucose (Misc Panel) 187H 07/10/21 16:44: Bedside Glucose (Misc Panel) 214H 07/10/21 19:41: Bedside Glucose (Misc Panel) 198H FSBS Laboratory Tests Test 07/10/21 05:41 07/10/21 12:28 07/10/21 16:44 07/10/21 19:41 Range/Units Bedside Glucose (Misc Panel) 161 187 214 198 80-115 MG/DL Current Medications Current Medications Medications (Trade) Dose Ordered Sig/Rani Route PRN Reason Start Time Stop Time Status Last Admin Dose Admin Acetaminophen (Tylenol Tab) 500 mg TID PO 07/03/21 16:00 07/10/21 21:34 Acetaminophen (Tylenol Tab) 1,000 mg TID PO 07/01/21 21:00 07/03/21 10:42 DC 07/03/21 08:53 Allopurinol (Zyloprim) 100 mg BID PO 07/01/21 21:00 07/05/21 17:06 DC 07/05/21 10:26 Allopurinol (Zyloprim) 150 mg BID PO 07/05/21 21:00 07/10/21 12:06 DC 07/10/21 08:22 Allopurinol (Zyloprim) 200 mg BID PO 07/10/21 21:00 07/10/21 21:35 Aspirin (Ecotrin) 81 mg QHS PO 07/01/21 21:00 07/10/21 21:33 Benzonatate (Tessalon Perles) 100 mg TIDP PRN PO COUGH 07/01/21 16:15 07/03/21 08:52 Bisacodyl (Dulcolax Suppository) 10 mg DAILYPRN PRN [place] CONSTIPATION 07/01/21 16:15 Cetirizine HCl (ZyrTEC) 10 mg DAILY PO 07/02/21 09:00 07/10/21 08:21 Colchicine (Colcrys) 0.3 mg DAILY PO 07/09/21 14:00 07/14/21 13:59 07/10/21 08:22 Darbepoetin Tono (Aranesp) 100 mcg Mo@09 SC 07/07/21 09:00 07/07/21 08:54 Dextrose (Dextrose 50%) 25 ml ASDIRECTED PRN IV SEE LABEL COMMENTS 07/01/21 16:15 Docusate Sodium (Colace) 100 mg BID PO 07/01/21 21:00 07/07/21 08:54 Ferrous Gluconate (Fergon) 324 mg DAILY PO 07/02/21 09:00 07/10/21 08:21 Gabapentin (Neurontin) 200 mg BID PO 07/08/21 21:00 07/10/21 21:34 Gabapentin (Neurontin) 400 mg QHS PO 07/01/21 21:00 07/08/21 14:46 DC 07/07/21 21:59 Glucagon (Glucagon) 1 mg ASDIRECTED PRN SC SEE LABEL COMMENTS 07/01/21 16:15 Glucose (Glucose) 16 GM ASDIRECTED PRN PO SEE LABEL COMMENTS 07/01/21 16:15 Heparin Sodium (Porcine) (Heparin) 5,000 units Q8H SC 07/01/21 22:00 07/10/21 13:30 DC 07/10/21 05:58 Home Med (Home Med List Complete!) ASDIRECTED XX 07/01/21 17:35 07/01/21 18:02 DC Hydroxyzine HCl (Atarax) 25 mg QHS PO 07/01/21 21:00 07/10/21 21:33 Metoprolol Succinate (TopROL XL) 50 mg QHS PO 07/01/21 21:00 07/10/21 21:33 Multivitamins (Theragram-M) 1 tab DAILY PO 07/02/21 09:00 07/10/21 08:21 Oxycodone HCl (Roxicodone, Oxyir) 5 mg Q4HP PRN PO MODERATE PAIN (PS 5-7) 07/01/21 16:15 Pantoprazole Sodium (Protonix) 40 mg BID PO 07/01/21 21:00 07/10/21 21:34 Polyethylene Glycol (Miralax) 1 pkt DAILY PRN PO CONSTIPATION 07/01/21 16:15 Potassium Phos/ Sodium Phos (Neutra-Phos 1.5gm Packet) 1 pkt TID PO 07/01/21 21:00 07/10/21 21:31 Senna (Senokot) 1 tab QHS PO 07/01/21 21:00 07/08/21 21:54 Simvastatin (Zocor) 20 mg QHS PO 07/01/21 21:00 07/10/21 21:33 Spironolactone (Aldactone) 50 mg DAILY PO 07/02/21 09:00 07/10/21 08:23 Torsemide (Demadex) 30 mg BID@09,17 PO 07/02/21 17:00 07/03/21 12:31 DC 07/03/21 08:53 Torsemide (Demadex) 40 mg BID@09,17 PO 07/09/21 17:00 07/10/21 16:43 Torsemide (Demadex) 50 mg BID@09,17 PO 07/03/21 17:00 07/09/21 09:15 DC 07/09/21 08:28 Torsemide (Demadex) 50 mg DAILY PO 07/02/21 09:00 07/02/21 12:10 DC 07/02/21 08:48 Allergies Coded Allergies: Sulfa (Sulfonamide Antibiotics) (Verified Allergy, Intermediate, HIVES, 07/16/19) tetracycline (Verified Allergy, Intermediate, HIVES, 07/16/19) bee venom protein (honey bee) (Verified Allergy, Unknown, SWELLING, 07/16/19) Assessment/Plan Date Seen The patient was seen on 07/10/21 in AM. Plan / VTE VTE Prophylaxis Ordered?: Yes Plan Orders past 48 Hours Orders Torsemide (Demadex) (07/09/21 17:00) Cbc With Differential (07/11/21 06:00) Basic Metabolic Profile (07/11/21 06:00) Colchicine (Colcrys) (07/09/21 14:00) Fingerstick Blood Sugar (07/09/21 11:55) Room Privileges (Pm&R) (07/09/21 12:27) Fingerstick Blood Sugar (07/09/21 16:41) Fingerstick Blood Sugar (07/09/21 19:26) Fingerstick Blood Sugar (07/10/21 05:41) Allopurinol (Zyloprim) (07/10/21 21:00) Fingerstick Blood Sugar (07/10/21 12:28) Duplex, Ext Lower Veins, Bilat (07/10/21 17:00) Fingerstick Blood Sugar (07/10/21 16:44) Fingerstick Blood Sugar (07/10/21 19:41) Plan Text CALE on CKD4. Anemia in CKD HFpEF, LVEF 60%, Grade 1 diastolic dysfunction Leg edema-->improved Acute Gout Lt big toe-->improving keep Torsemide 40 mg bid and continue current spironolactone. Avoid metolazone for now. allopurinol increased to 200 mg bid. Keep Colchicine 0.3 mg daily for few more days Check labs in AM. JOSE BANEGAS MD Jul 10, 2021 21:50
[2021-07-11 06:33] VITALS: BP 128/60
[2021-07-11 07:50] LABS: BASO % 0.7 % (0.0-1.0); EOS # 0.2 10^3/uL (0.0-0.5); EOS % 5.4 % (0.0-3.0); HEMATOCRIT 28.7 % (36.0-47.0); HEMOGLOBIN 9.3 g/dl (12.0-15.5); LYMPH # 1.2 10^3/uL (1.5-5.0); MEAN CORPUSCULAR HEMOGLOBIN 32.4 pg (27.0-33.0); MEAN CORPUSCULAR HGB CONC 32.4 g/dl (32.0-36.5); MONO # 0.5 10^3/uL (0.0-0.8); NEUTROPHILS # 2.3 10^3/uL (1.5-8.5); NEUTROPHILS % 54.2 % (36.0-66.0); PLATELET COUNT, AUTOMATED 148 10^3/uL (150-450); RED BLOOD COUNT 2.87 10^6/uL (4.00-5.40); WHITE BLOOD COUNT 4.3 10^3/uL (4.0-10.0)
[2021-07-11 08:12] LABS: CALCIUM LEVEL 8.8 MG/DL (8.8-10.2); CREATININE FOR GFR 2.8 MG/DL (0.55-1.30); GLOMERULAR FILTRATION RATE 17.8 (>45)
[2021-07-11] MEDS: COLCHICINE 0.6 MG TABLET PO SCH (08:47)
[2021-07-11] MEDS: CETIRIZINE (ZyrTEC) 10 MG TAB PO SCH (08:47)
[2021-07-11] MEDS: SPIRONOLACTONE 50 MG TAB PO SCH (08:47)
[2021-07-11] MEDS: PANTOPRAZOLE 40MG TAB (PROTONIX) PO SCH (08:47)
[2021-07-11] MEDS: MULTIVITAMINS/MINERALS THERAP 1 TAB PO SCH (08:47)
[2021-07-11] MEDS: DOCUSATE SODIUM 100MG CAPSULE PO SCH (08:47)
[2021-07-11] MEDS: GABAPENTIN 100 MG CAP PO SCH (08:47)
[2021-07-11] MEDS: NEUTRA-PHOS 1.5 GM PACKET PO SCH ×2 (08:48→16:47)
[2021-07-11] MEDS: FERROUS GLUCONATE 324 MG TAB PO SCH (08:48)
[2021-07-11] MEDS: ACETAMINOPHEN 500 MG TAB PO SCH ×2 (08:48→16:49)
[2021-07-11] MEDS: REMEDY PHYTOPLEX Z-GUARD PASTE 113GM TUBE (FROM STOREROOM PRODUCT) TOP SCH ×2 (08:48→16:00)
[2021-07-11] MEDS: TORSEMIDE 20 MG TAB PO SCH (08:50)
[2021-07-11] MEDS: allopurinoL 100 MG TAB PO SCH (08:50)
[2021-07-11] MEDS ORDERED: NEUTPW PO (10:07)
[2021-07-11] MEDS ORDERED: ALDA25TA2 PO (10:07)
[2021-07-11] MEDS ORDERED: LOVA20TA2 PO (10:07)
[2021-07-11] MEDS ORDERED: CETI-24 PO (10:07)
[2021-07-11] MEDS ORDERED: PANT40TA29 PO (10:07)
[2021-07-11] MEDS ORDERED: ASPI81TA26 PO (10:07)
[2021-07-11] MEDS ORDERED: METO1TAB7 PO (10:07)
[2021-07-11] MEDS ORDERED: GABA-1171 PO (10:07)
[2021-07-11] MEDS ORDERED: TORS20TA2 PO (10:07)
[2021-07-11] MEDS ORDERED: HYDR-3363 PO (10:07)
[2021-07-11] MEDS ORDERED: ALLO100T PO (10:07)
--- NOTE | 2021-07-11 11:21 | PMRDS ---
NAME: BETINA CATHERINE [facility] WT ID#: [id number] JOB: [id number] ISELA: 07/01/2021 ACCT: [id number] DOCTOR: DESI ROSS MD PMR DISCHARGE SUMMARY DATE OF ADMISSION: 07/01/2021 DATE OF DISCHARGE: 07/11/2021 CHIEF COMPLAINT/DISCHARGE DIAGNOSIS: Left foot fracture. 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 She was found to have "nondisplaced interarticular fractures of the proximal and of the second and fourth metatarsals with chip fracture suspected at the proximal end of the first and third metatarsals. Findings consistent with nondisplaced Lisfranc joint injury." Orthopedics was consulted and the patient was placed in a soft cast and made nonweightbearing to the left lower extremity. She had CALE which gradually improved and anemia that was relatively stable and the patient was instructed to follow-up with Dr. Hoffman in [place] for colonoscopy. She had significant mobility and ADL impairments and deemed medically appropriate for discharge to ARU on 07/01/21. PAST MEDICAL HISTORY: As per HPI. HOSPITAL COURSE: Patient was admitted and enrolled in a comprehensive PT/OT program. She received 24 hour nursing supervision and weekly team meetings were held to discuss her progress. Patient's hemoglobin and hematocrit remained relatively stable during her hospital course and she was maintained on Protonix b.i.d. Renal was consulted as she had CALE on CKD and her diuretics were adjusted. She had left foot and first digit toe pain for which she was treated with Colchicine for possible gout flare. Her Gabapentin dosing was adjusted from 400 q.h.s. to 200 b.i.d. to better help her neuropathic pain during the day. She had made considerable gains in therapy and was deemed medically and functionally stable to return home at a wheelchair level. DISCHARGE MEDICATIONS: As per instructions. FUNCTIONAL HISTORY: On discharge, patient was modified independent from a wheelchair level for mobility and ADLs. Thank you for this referral.
[2021-07-11 14:00] VITALS: BP 133/60
--- NOTE | 2021-07-11 21:53 | IPNPDOC ---
Subjective CC/HPI The patient is a 71-year-old female admitted with a reason for visit of Polynueropathy. Events since last encounter Pt is getting ready to be discharged. Renal function is worse, cr 2.6-->2.8. Lt big toe pain is improved. She denies any more edema General: Denies: Chills, Night Sweats Constitutional: Denies: Chills, Fever Eyes: Denies: Pain ENT: Denies: Head Aches, Ear Pain Skin: Denies: Rash, Lesions Pulmonary: Denies: Dyspnea, Cough Cardiovascular: Denies: Chest Pain, Palpitations Gastrointestinal: Denies: Nausea, Vomiting Genitourinary: Denies: Dysuria, Frequency Hematologic: Denies: Bruising, Bleeding Excessively Musculoskeletal: Denies: Back Pain, Joint Pain Neurological: Denies: Weakness, Numbness Psych: Reports: Mood Normal Objective Physical Examination General Exam: Alert, No Acute Distress, Other (Sitting in wheelchair) EYE EXAM: PERRLA, Conjunctiva & lids normal, EOMI ENT EXAM: Atraumatic, Mucous membr. moist/pink Neck Exam: Supple, JVD Chest Exam: Clear to auscultation, Normal air movement Heart Exam: Rate Normal, Normal S1, Normal S2 ABDOMEN EXAM: Normal bowel sounds, Soft; No: Tenderness Extremity Exam: Clubbing, Other (Lt leg bandage noted, ); No: Edema Skin Exam: Nl turgor and temperature; No: Rash Neuro Exam: Normal Speech, Strength at 5/5 X4 ext Psych Exam: Mental status NL, Mood NL Vital Signs/I&O Vital Signs Date Time Temp Pulse Resp B/P (MAP) Pulse Ox O2 Delivery O2 Flow Rate FiO2 07/11/21 14:00 97.6 75 18 133/60 (84) 96 Room Air I&O- Last 24 Hours up to 6 AM 07/11/21 06:00 Intake Total 1200 ml Balance 1200 ml Laboratory Data Labs 24H Laboratory Tests 2 07/11/21 06:15: Bedside Glucose (Misc Panel) 289H 07/11/21 07:13: Immature Granulocyte % (Auto) 0.7, Neutrophils (%) (Auto) 54.2, Lymphocytes (%) (Auto) 28.0, Monocytes (%) (Auto) 11.0H, Eosinophils (%) (Auto) 5.4H, Basophils (%) (Auto) 0.7, Neutrophils # (Auto) 2.3, Lymphocytes # (Auto) 1.2L, Monocytes # (Auto) 0.5, Eosinophils # (Auto) 0.2, Basophils # (Auto) 0.0, Nucleated Red Blood Cells % (auto) 1.2H, Anion Gap 7L, Glomerular Filtration Rate 17.8L, Calcium Level 8.8 07/11/21 11:37: Bedside Glucose (Misc Panel) 298H 07/11/21 16:32: Bedside Glucose (Misc Panel) 182H CBC/BMP Laboratory Tests 07/11/21 07:13 FSBS Laboratory Tests Test 07/11/21 06:15 07/11/21 11:37 07/11/21 16:32 Range/Units Bedside Glucose (Misc Panel) 289 298 182 80-115 MG/DL Current Medications Current Medications Medications (Trade) Dose Ordered Sig/Rani Route PRN Reason Start Time Stop Time Status Last Admin Dose Admin Acetaminophen (Tylenol Tab) 500 mg TID PO 07/03/21 16:00 07/11/21 17:41 DC 07/11/21 16:49 Acetaminophen (Tylenol Tab) 1,000 mg TID PO 07/01/21 21:00 07/03/21 10:42 DC 07/03/21 08:53 Allopurinol (Zyloprim) 100 mg BID PO 07/01/21 21:00 07/05/21 17:06 DC 07/05/21 10:26 Allopurinol (Zyloprim) 150 mg BID PO 07/05/21 21:00 07/10/21 12:06 DC 07/10/21 08:22 Allopurinol (Zyloprim) 200 mg BID PO 07/10/21 21:00 07/11/21 17:41 DC 07/11/21 08:50 Aspirin (Ecotrin) 81 mg QHS PO 07/01/21 21:00 07/11/21 17:41 DC 07/10/21 21:33 Benzonatate (Tessalon Perles) 100 mg TIDP PRN PO COUGH 07/01/21 16:15 07/11/21 17:41 DC 07/03/21 08:52 Bisacodyl (Dulcolax Suppository) 10 mg DAILYPRN PRN [place] CONSTIPATION 07/01/21 16:15 07/11/21 17:41 DC Cetirizine HCl (ZyrTEC) 10 mg DAILY PO 07/02/21 09:00 07/11/21 17:41 DC 07/11/21 08:47 Colchicine (Colcrys) 0.3 mg DAILY PO 07/09/21 14:00 07/11/21 09:34 DC 07/11/21 08:47 Darbepoetin Tono (Aranesp) 100 mcg Mo@09 SC 07/07/21 09:00 07/11/21 17:41 DC 07/07/21 08:54 Dextrose (Dextrose 50%) 25 ml ASDIRECTED PRN IV SEE LABEL COMMENTS 07/01/21 16:15 07/11/21 17:41 DC Docusate Sodium (Colace) 100 mg BID PO 07/01/21 21:00 07/11/21 17:41 DC 07/11/21 08:47 Ferrous Gluconate (Fergon) 324 mg DAILY PO 07/02/21 09:00 07/11/21 17:41 DC 07/11/21 08:48 Gabapentin (Neurontin) 200 mg BID PO 07/08/21 21:00 07/11/21 17:41 DC 07/11/21 08:47 Gabapentin (Neurontin) 400 mg QHS PO 07/01/21 21:00 07/08/21 14:46 DC 07/07/21 21:59 Glucagon (Glucagon) 1 mg ASDIRECTED PRN SC SEE LABEL COMMENTS 07/01/21 16:15 07/11/21 17:41 DC Glucose (Glucose) 16 GM ASDIRECTED PRN PO SEE LABEL COMMENTS 07/01/21 16:15 07/11/21 17:41 DC Heparin Sodium (Porcine) (Heparin) 5,000 units Q8H SC 07/01/21 22:00 07/10/21 13:30 DC 07/10/21 05:58 Home Med (Home Med List Complete!) ASDIRECTED XX 07/01/21 17:35 07/01/21 18:02 DC Hydroxyzine HCl (Atarax) 25 mg QHS PO 07/01/21 21:00 07/11/21 17:41 DC 07/10/21 21:33 Metoprolol Succinate (TopROL XL) 50 mg QHS PO 07/01/21 21:00 07/11/21 17:41 DC 07/10/21 21:33 Multivitamins (Theragram-M) 1 tab DAILY PO 07/02/21 09:00 07/11/21 17:41 DC 07/11/21 08:47 Oxycodone HCl (Roxicodone, Oxyir) 5 mg Q4HP PRN PO MODERATE PAIN (PS 5-7) 07/01/21 16:15 07/11/21 17:41 DC Pantoprazole Sodium (Protonix) 40 mg BID PO 07/01/21 21:00 07/11/21 17:41 DC 07/11/21 08:47 Polyethylene Glycol (Miralax) 1 pkt DAILY PRN PO CONSTIPATION 07/01/21 16:15 07/11/21 17:41 DC Potassium Phos/ Sodium Phos (Neutra-Phos 1.5gm Packet) 1 pkt TID PO 07/01/21 21:00 07/11/21 17:41 DC 07/11/21 16:47 Senna (Senokot) 1 tab QHS PO 07/01/21 21:00 07/11/21 17:41 DC 07/08/21 21:54 Simvastatin (Zocor) 20 mg QHS PO 07/01/21 21:00 07/11/21 17:41 DC 07/10/21 21:33 Spironolactone (Aldactone) 25 mg DAILY PO 07/12/21 09:00 07/11/21 17:41 DC Spironolactone (Aldactone) 50 mg DAILY PO 07/02/21 09:00 07/11/21 09:36 DC 07/11/21 08:47 Torsemide (Demadex) 30 mg BID@, PO 07/02/21 17:00 07/03/21 12:31 DC 07/03/21 08:53 Torsemide (Demadex) 40 mg BID@, PO 07/09/21 17:00 07/11/21 09:36 DC 07/11/21 08:50 Torsemide (Demadex) 40 mg DAILY PO 07/12/21 09:00 07/11/21 17:41 DC Torsemide (Demadex) 50 mg BID@, PO 07/03/21 17:00 07/09/21 09:15 DC 07/09/21 08:28 Torsemide (Demadex) 50 mg DAILY PO 07/02/21 09:00 07/02/21 12:10 DC 07/02/21 08:48 Allergies Coded Allergies: Sulfa (Sulfonamide Antibiotics) (Verified Allergy, Intermediate, HIVES, 07/16/19) tetracycline (Verified Allergy, Intermediate, HIVES, 07/16/19) bee venom protein (honey bee) (Verified Allergy, Unknown, SWELLING, 07/16/19) Assessment/Plan Date Seen The patient was seen on 07/11/21 in AM. Plan / VTE VTE Prophylaxis Ordered?: Yes Plan Orders past 48 Hours Orders Fingerstick Blood Sugar (07/10/21 05:41) Allopurinol (Zyloprim) (07/10/21 21:00) Fingerstick Blood Sugar (07/10/21 12:28) Duplex, Ext Lower Veins, Bilat (07/10/21 17:00) Fingerstick Blood Sugar (07/10/21 16:44) Fingerstick Blood Sugar (07/10/21 19:41) Fingerstick Blood Sugar (07/11/21 06:15) Discharge/Transfer Order (07/11/21 09:28) Patient Discharge Instruction (07/11/21 09:28) Torsemide (Demadex) (07/12/21 09:00) Spironolactone (Aldactone) (07/12/21 09:00) Fingerstick Blood Sugar (07/11/21 11:37) Fingerstick Blood Sugar (07/11/21 16:32) Plan Text CALE on CKD4. Cr worse 2.6-->2.8 Anemia in CKD HFpEF, LVEF 60%, Grade 1 diastolic dysfunction Leg edema-->improved Acute Gout Lt big toe-->improved Decrease Torsemide 40 mg daily and spironolactone 25 mg. Avoid metolazone for now. allopurinol increased to 200 mg bid due to gout attack Stop Colchicine now. Pt to follow up with her warm in worker on DC. JOSE BNAEGAS MD Jul 11, 2021 21:53
[2021-07-12] MEDS ORDERED: SPIRONOLACTONE 25 MG TAB PO SCH (09:00)
[2021-07-12] MEDS ORDERED: TORSEMIDE 20 MG TAB PO SCH (09:00)
== END 2021-07-11 17:00 | disposition home health service (06) | DRG 560 ==
LOC: M PM&R 14:40
PROVIDERS: ADMIT Physical Medicine & Rehabilitation; ATTEND Physical Medicine & Rehabilitation
DX: S92.322D Displaced fracture of second metatarsal bone, left foot, subsequent encounter for fracture with routine healing (principal); I13.0 Hypertensive heart and chronic kidney disease with heart failure and stage 1 through stage 4 chronic kidney disease, or unspecified chronic kidney disease; N18.4 Chronic kidney disease, stage 4 (severe); Q60.5 Renal hypoplasia, unspecified; I50.32 Chronic diastolic (congestive) heart failure; N17.9 Acute kidney failure, unspecified; X50.1XXD Overexertion from prolonged static or awkward postures, subsequent encounter; Y92.009 Unspecified place in unspecified non-institutional (private) residence as the place of occurrence of the external cause; Y99.8 Other external cause status; Y93.F9 Activity, other caregiving; E78.5 Hyperlipidemia, unspecified; E11.42 Type 2 diabetes mellitus with diabetic polyneuropathy; E11.22 Type 2 diabetes mellitus with diabetic chronic kidney disease; D63.1 Anemia in chronic kidney disease; I95.9 Hypotension, unspecified; M10.9 Gout, unspecified; K75.81 Nonalcoholic steatohepatitis (NASH); E87.6 Hypokalemia; N28.1 Cyst of kidney, acquired; Z74.09 Other reduced mobility; Z74.1 Need for assistance with personal care; Z79.4 Long term (current) use of insulin; Z79.899 Other long term (current) drug therapy; Z79.82 Long term (current) use of aspirin; Z88.2 Allergy status to sulfonamides; Z88.8 Allergy status to other drugs, medicaments and biological substances; Z91.030 Bee allergy status; Z87.891 Personal history of nicotine dependence

== ENCOUNTER → 2021-07-21 | Outpatient (CLI) | payer MEDICARE, OTHER ==
[~2021-07-21] MED LIST changes: +ALDA25TA2 PO
[2021-07-21 16:14] LABS: HEMOGLOBIN 11.3 g/dl (12.0-15.5); MEAN CORPUSCULAR HEMOGLOBIN 33.5 pg (27.0-33.0); MEAN CORPUSCULAR HGB CONC 31.4 g/dl (32.0-36.5); MEAN CORPUSCULAR VOLUME 106.8 fl (80.0-96.0); PLATELET COUNT, AUTOMATED 152 10^3/uL (150-450); RED BLOOD COUNT 3.37 10^6/uL (4.00-5.40); WHITE BLOOD COUNT 5.2 10^3/uL (4.0-10.0)
[2021-07-21 16:18] LABS: ALBUMIN 2.5 GM/DL (3.2-5.2); CALCIUM LEVEL 9.5 MG/DL (8.8-10.2); CREATININE FOR GFR 2.3 MG/DL (0.55-1.30); GLOMERULAR FILTRATION RATE 22.4 (>45); MAGNESIUM LEVEL 2.2 MG/DL (1.8-2.4); PHOSPHORUS LEVEL 3.1 MG/DL (2.5-4.9); POTASSIUM SERUM 4.7 MEQ/L (3.5-5.1)
== END ==
LOC: M WUC 10:56
PROVIDERS: ATTEND Internal Medicine Nephrology
DX: N18.4 Chronic kidney disease, stage 4 (severe) (principal)

== ENCOUNTER → 2021-07-29 | Outpatient (CLI) | payer MEDICARE, OTHER ==
--- NOTE | 2021-07-29 12:27 | REP ---
INDICATION: LT FOOT FX. COMPARISON: None. TECHNIQUE: AP, lateral, oblique views of the left foot FINDINGS: There is a nondisplaced fracture at the base of the 2nd metatarsal bone. Other subtle fractures cannot be excluded. Age-related changes are noted. Further evaluation is limited by overlying cast material. IMPRESSION: Stable nondisplaced fractures noted. <Electronically signed by Juan Juárez > 07/29/21 [id number]
== END ==
LOC: M SOG 11:36
PROVIDERS: ATTEND Orthopaedic Surgery
DX: S92.325A Nondisplaced fracture of second metatarsal bone, left foot, initial encounter for closed fracture (principal); X58.XXXA Exposure to other specified factors, initial encounter; Y92.9 Unspecified place or not applicable; Y99.9 Unspecified external cause status

== ENCOUNTER → 2021-08-20 | Outpatient (CLI) | payer MEDICARE, OTHER ==
--- NOTE | 2021-08-20 12:01 | REP ---
INDICATION: K74.60 CIRRHOSIS OF LIVER. COMPARISON: 01/17/2021. TECHNIQUE: Real-time sonographic evaluation of ABDOMEN performed. FINDINGS: The gallbladder demonstrates no evidence of intraluminal sludge or calculi, wall thickening or pericholecystic fluid. There is no intrahepatic or extrahepatic biliary dilatation, common bile duct measures 2 mm in maximum diameter. The liver has a cirrhotic appearance. There is no gross liver mass. The pancreas demonstrates homogeneous echotexture with no gross mass. Spleen is enlarged measuring 13.8 x 10.8 x 6.0 cm, splenic index 894. There is no right kidney present. Left renal dimensions are 12.9 x 5.0 x 6.3 cm. There is no left hydronephrosis or mass. The visualized abdominal aorta is normal in caliber with no aneurysm. The distal abdominal aorta is not seen due to overlying bowel gas. No free fluid is seen. IMPRESSION: The liver appears cirrhotic with no gross liver mass. Splenomegaly. No free fluid. <Electronically signed by Celso Hyde > 08/20/21 [id number]
== END ==
LOC: M RAD 08:09
PROVIDERS: ATTEND Student in an Organized Health Care Education/Training Program
DX: K74.60 Unspecified cirrhosis of liver (principal)

== ENCOUNTER → 2021-08-26 | Outpatient (CLI) | payer MEDICARE, OTHER ==
--- NOTE | 2021-08-26 14:08 | REP ---
INDICATION: LT FOOT FX. COMPARISON: Multiple the latest 07/29/2021 TECHNIQUE: Four views FINDINGS: . Previously described fractures are barely perceptible and are now seen with increased density consistent with healing. There is no evidence of an acute fracture. Plantar and retrocalcaneal heel spurs are noted status quo. 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 The bones are generally demineralized. Degenerative changes seen throughout the foot. IMPRESSION: As above. <Electronically signed by Hakan Chne > 08/26/21 [id number]
== END ==
LOC: M SOG 10:28
PROVIDERS: ATTEND Orthopaedic Surgery
DX: S92.345A Nondisplaced fracture of fourth metatarsal bone, left foot, initial encounter for closed fracture (principal); Y92.9 Unspecified place or not applicable; Y93.9 Activity, unspecified; Y99.9 Unspecified external cause status

== ENCOUNTER 2021-10-21 11:16 | Emergency (ER) | payer MEDICARE, OTHER ==
[~2021-10-21] VITALS: Ht 157.5 cm; Wt 100.0 kg
[2021-10-21 11:52] LABS: BASO % 0.4 % (0.0-1.0); EOS # 0.4 10^3/uL (0.0-0.5); EOS % 5.1 % (0.0-3.0); HEMATOCRIT 35.6 % (36.0-47.0); HEMOGLOBIN 11.5 g/dl (12.0-15.5); LYMPH # 1.3 10^3/uL (1.5-5.0); LYMPH % 18.2 % (24.0-44.0); MEAN CORPUSCULAR HGB CONC 32.3 g/dl (32.0-36.5); MEAN CORPUSCULAR VOLUME 105.3 fl (80.0-96.0); MONO # 0.7 10^3/uL (0.0-0.8); MONO % 10.4 % (2.0-8.0); NEUTROPHILS # 4.6 10^3/uL (1.5-8.5); NEUTROPHILS % 65.5 % (36.0-66.0); PLATELET COUNT, AUTOMATED 143 10^3/uL (150-450); RED BLOOD COUNT 3.38 10^6/uL (4.00-5.40); WHITE BLOOD COUNT 7.1 10^3/uL (4.0-10.0)
[2021-10-21 12:06] LABS: INR 1.12; PROTHROMBIN TIME 14.8 SECONDS (12.7-14.5)
[2021-10-21 12:22] LABS: ALBUMIN 2.3 GM/DL (3.2-5.2); BILIRUBIN,TOTAL 1.3 MG/DL (0.2-1.0); CALCIUM LEVEL 8.8 MG/DL (8.8-10.2); CREATININE FOR GFR 2.18 MG/DL (0.55-1.30); GLOMERULAR FILTRATION RATE 23.8 (>45); TOTAL PROTEIN 7.4 GM/DL (6.4-8.2)
[2021-10-21] MEDS ORDERED: INSUH10VL (12:43)
[2021-10-21] MEDS ORDERED: POTA1TAB23 (12:43)
[2021-10-21 12:54] LABS: BILIRUBIN,DIRECT 1.1 MG/DL (0.0-0.2)
[2021-10-21] MEDS ORDERED: GASTROGRAFIN SOLUTION 30ML (Q9963) As Ordered ONE (13:14)
[2021-10-21] MEDS: GASTROGRAFIN SOLUTION 30ML PO SCH ×2 (13:15→13:45)
--- NOTE | 2021-10-21 15:23 | REP ---
INDICATION: rectal bleeding, abd pain CREAT =2.18 PT HAS 1 KIDNEY. COMPARISON: 06/15/2021 the latest prior TECHNIQUE: Standard helical technique without intravenous contrast. Oral bowel preparatory contrast was administered prior to the exam. FINDINGS: There is no change in lung bases. The liver and spleen are unchanged. Once again, there are cirrhotic features to the liver with mild splenomegaly. There is a small amount of ascites which is increased slightly from the prior exam. This is seen particularly along the hepatic edge. There is cholelithiasis status quo. The pancreas, adrenal glands, and kidneys are unchanged. There is marked right renal atrophy status quo. The abdominal aorta and para-aortic regions appear unchanged. There are small para-aortic lymph nodes status quo. There is no significant change in appearance of the bowel loops or the mesenteries. There is a trace amount of fluid in the paracolic gutters and in the pelvis. There is no evidence of free intraperitoneal air. There is a ventral hernia containing mesentery and fluid status quo. There is a new oval-shaped 3.6 cm sized subcutaneous nodule confined to the adipose in the right lower quadrant. There is no significant change in appearance of the osseous structures. IMPRESSION: 1. Cirrhosis status quo. 2. Cholelithiasis status quo. 3. There is a small amount of ascites. 4. Other chronic changes as described above. 5. New right lower quadrant subcutaneous nodule of uncertain etiology. This possibly represents a recent injection site but needs to be correlated clinically. <Electronically signed by Hakan Chen > 10/21/21 [id number]
[2021-10-21 16:28] VITALS: BP 142/66
--- NOTE | 2021-10-21 16:53 | ED PDOC ---
Post-Departure Follow-Up radiology report faxed to Gary Garcia Sarah MD Oct 21, 2021 16:53
[2021-10-22] MEDS ORDERED: METO1TAB32 PO (07:56)
[2021-10-22] MEDS ORDERED: TORS20TA2 PO (07:56)
== END 2021-10-21 16:30 | disposition home or self-care (01) ==
LOC: M ED 11:16
DX: K92.1 Melena (principal); K92.2 Gastrointestinal hemorrhage, unspecified; E11.9 Type 2 diabetes mellitus without complications; N18.9 Chronic kidney disease, unspecified; K21.9 Gastro-esophageal reflux disease without esophagitis; M85.9 Disorder of bone density and structure, unspecified; Z79.899 Other long term (current) drug therapy; Z79.82 Long term (current) use of aspirin; Z79.4 Long term (current) use of insulin; Z88.1 Allergy status to other antibiotic agents; Z88.2 Allergy status to sulfonamides; Z91.030 Bee allergy status
CPT/HCPCS: 36415; 74176; 80053; 82248; 85025; 85610; 86850; 86900; 86901; 99284; U0002

== ENCOUNTER 2021-10-22 07:24 | Emergency (ER) | payer MEDICARE, OTHER ==
[~2021-10-22] VITALS: Ht 157.5 cm; Wt 100.0 kg
[~2021-10-22 07:24] MED LIST changes: +INSUH10VL; +POTA1TAB23
[2021-10-22] MEDS ORDERED: METO1TAB32 PO (07:56)
[2021-10-22] MEDS ORDERED: TORS20TA2 PO (07:56)
[2021-10-22 08:40] LABS: BASO % 0.3 % (0.0-1.0); EOS # 0.3 10^3/uL (0.0-0.5); EOS % 4.8 % (0.0-3.0); HEMATOCRIT 33.5 % (36.0-47.0); LYMPH # 1.1 10^3/uL (1.5-5.0); LYMPH % 18.8 % (24.0-44.0); MEAN CORPUSCULAR HEMOGLOBIN 34.3 pg (27.0-33.0); MEAN CORPUSCULAR HGB CONC 32.8 g/dl (32.0-36.5); MEAN CORPUSCULAR VOLUME 104.4 fl (80.0-96.0); MONO # 0.6 10^3/uL (0.0-0.8); MONO % 10.6 % (2.0-8.0); NEUTROPHILS # 3.9 10^3/uL (1.5-8.5); PLATELET COUNT, AUTOMATED 141 10^3/uL (150-450); RED BLOOD COUNT 3.21 10^6/uL (4.00-5.40); WHITE BLOOD COUNT 6.1 10^3/uL (4.0-10.0)
[2021-10-22 08:59] LABS: ALBUMIN 2.2 GM/DL (3.2-5.2); BILIRUBIN,DIRECT 1.2 MG/DL (0.0-0.2); BILIRUBIN,TOTAL 1.5 MG/DL (0.2-1.0); CALCIUM LEVEL 8.7 MG/DL (8.8-10.2); CREATININE FOR GFR 2.04 MG/DL (0.55-1.30); GLOMERULAR FILTRATION RATE 25.7 (>45); POTASSIUM SERUM 4.2 MEQ/L (3.5-5.1); TOTAL PROTEIN 7.2 GM/DL (6.4-8.2)
[2021-10-22] MEDS ORDERED: ACETAMINOPHEN 500 MG TAB PO ONE (12:10)
[2021-10-22 12:25] LABS: INR 1.12; PROTHROMBIN TIME 14.8 SECONDS (12.7-14.5)
[2021-10-22 12:37] LABS: CK-MB VALUE MASS 1.2 NG/ML (<3.6); MB/CK RELATIVE INDEX 1.88 (< OR =4)
[2021-10-22 13:24] VITALS: BP 129/67
== END 2021-10-22 13:47 | disposition home or self-care (01) ==
LOC: M ED 07:24
DX: K62.5 Hemorrhage of anus and rectum (principal); R10.84 Generalized abdominal pain; E11.40 Type 2 diabetes mellitus with diabetic neuropathy, unspecified; I12.9 Hypertensive chronic kidney disease with stage 1 through stage 4 chronic kidney disease, or unspecified chronic kidney disease; N18.30 Chronic kidney disease, stage 3 unspecified; E78.5 Hyperlipidemia, unspecified; M79.7 Fibromyalgia; Z79.899 Other long term (current) drug therapy; Z79.82 Long term (current) use of aspirin; Z79.4 Long term (current) use of insulin; Z88.1 Allergy status to other antibiotic agents; Z88.2 Allergy status to sulfonamides; Z91.030 Bee allergy status

== ENCOUNTER → 2021-11-18 | Outpatient (CLI) | payer MEDICARE, OTHER ==
[~2021-11-18] MED LIST changes: +METO1TAB32 PO
== END ==
LOC: M SOG 08:43
PROVIDERS: ATTEND Orthopaedic Surgery
DX: Z47.89 Encounter for other orthopedic aftercare (principal); M85.89 Other specified disorders of bone density and structure, multiple sites; S92.325D Nondisplaced fracture of second metatarsal bone, left foot, subsequent encounter for fracture with routine healing; X58.XXXD Exposure to other specified factors, subsequent encounter; Y92.89 Other specified places as the place of occurrence of the external cause

== ENCOUNTER 2021-12-08 14:15 | Outpatient (RCR) | payer MEDICARE, OTHER | END 2021-12-15 | LOC: M PT 14:15 | PROVIDERS: ATTEND Orthopaedic Surgery | DX: M77.42 Metatarsalgia, left foot (principal); M70.62 Trochanteric bursitis, left hip ==

== ENCOUNTER 2021-12-19 12:50 | Outpatient (RCR) | payer MEDICARE, OTHER | END 2022-01-15 | LOC: M PT 12:50 | PROVIDERS: ATTEND Orthopaedic Surgery | DX: M77.42 Metatarsalgia, left foot (principal); M70.42 Prepatellar bursitis, left knee ==

== ENCOUNTER → 2022-03-02 | Outpatient (REF) | payer MEDICARE, OTHER ==
[2022-03-02 18:06] LABS: CHOLESTEROL RISK RATIO 3.968 (<5)
== END ==
LOC: M LABWUC 15:44
PROVIDERS: ATTEND Nurse Practitioner Adult Health
DX: R06.02 Shortness of breath (principal); E78.2 Mixed hyperlipidemia; R94.39 Abnormal result of other cardiovascular function study

== ENCOUNTER → 2022-03-02 | Outpatient (REF) | payer MEDICARE, OTHER | LOC: M LABWUC 15:42 | PROVIDERS: ATTEND Internal Medicine Endocrinology, Diabetes & Metabolism | DX: R94.6 Abnormal results of thyroid function studies (principal) ==

== ENCOUNTER → 2022-03-02 | Outpatient (REF) | payer MEDICARE, OTHER ==
[2022-03-02 18:08] LABS: PERCENT SATURATION 67.4 % (13.2-45.0)
[2022-03-02 18:53] LABS: HEMATOCRIT 34.5 % (36.0-47.0); HEMOGLOBIN 11.4 g/dl (12.0-15.5); MEAN CORPUSCULAR HEMOGLOBIN 34.3 pg (27.0-33.0); MEAN CORPUSCULAR VOLUME 103.9 fl (80.0-96.0); RED BLOOD COUNT 3.32 10^6/uL (4.00-5.40); WHITE BLOOD COUNT 4.7 10^3/uL (4.0-10.0)
[2022-03-02 20:00] LABS: PLATELET COUNT, AUTOMATED 94 10^3/uL (150-450)
== END ==
LOC: M LABWUC 15:46
PROVIDERS: ATTEND Internal Medicine Nephrology
DX: N18.4 Chronic kidney disease, stage 4 (severe) (principal); D63.1 Anemia in chronic kidney disease

== ENCOUNTER → 2022-03-09 | Outpatient (CLI) | payer MEDICARE, OTHER ==
[~2022-03-09] MED LIST changes: +INSUHUMDS; +IRON27TA2 PO; +POTA-149 PO; -POTA1TAB23; +POTA1TAB23 PO
== END ==
LOC: M LABSMTC 10:31
PROVIDERS: ATTEND Anesthesiology
DX: Z01.818 Encounter for other preprocedural examination (principal); Z11.52 Encounter for screening for COVID-19

== ENCOUNTER 2022-03-13 06:49 | Day surgery (SDC) | payer MEDICARE, OTHER ==
[~2022-03-13] VITALS: Ht 157.5 cm; Wt 103.0 kg
[~2022-03-13 06:49] MED LIST changes: +BSS IRR 500ML/OMIDRIA 4ML IRR BAG (OR ONLY) As Ordered ONE; +CEFUROXIME 1MG/0.1ML INTRACAMERAL INJ As Ordered ONE; +LIDOCAINE 1% SDV 5ML VIAL As Ordered ONE; +PROPARACAINE 0.5% OPHTH SOL 15ML OS ONE
[2022-03-13] MEDS ORDERED: ACETYLCHOLINE OPHTH SOLN 1% 2ML (MIOCHOL-E) As Ordered ONE (06:59)
[2022-03-13] MEDS ORDERED: fentaNYL 100 MCG/2 ML INJECTION As Ordered ONE (07:16)
[2022-03-13] MEDS ORDERED: MIDAZOLAM INJ 2MG/2ML VIAL (J2250 PER 1MG) As Ordered ONE (07:16)
[2022-03-13] MEDS: PHENYLEPHRINE 2.5% OPHTH SOL 2ML OS SCH ×2 (07:30→07:31)
[2022-03-13] MEDS: OFLOXACIN 0.3 % (OCUFLOX) OPTH SOL 5ML OS SCH ×2 (07:30→07:31)
[2022-03-13] MEDS: TROPICAMIDE 1% OPHTH SOLN 2ML OS SCH ×2 (07:30→07:31)
[2022-03-13] MEDS ORDERED: TRYPAN BLUE 0.06 % 2.25 ML OPHTH SYR (VISIONBLUE) As Ordered ONE (07:46)
[2022-03-13] MEDS ORDERED: INSULIN LISPRO (NovoLOG) PER UNIT SC PRN (08:05)
[2022-03-13 08:45] VITALS: BP 176/76
== END 2022-03-13 08:52 | disposition home or self-care (01) ==
LOC: M SDC 06:49
PROVIDERS: ATTEND Ophthalmology
DX: H25.12 Age-related nuclear cataract, left eye (principal); H57.89 Other specified disorders of eye and adnexa; I10 Essential (primary) hypertension; E78.5 Hyperlipidemia, unspecified; R60.0 Localized edema; E11.9 Type 2 diabetes mellitus without complications; Z96.41 Presence of insulin pump (external) (internal); Z79.4 Long term (current) use of insulin; Z79.899 Other long term (current) drug therapy; K21.9 Gastro-esophageal reflux disease without esophagitis; M10.9 Gout, unspecified; K57.92 Diverticulitis of intestine, part unspecified, without perforation or abscess without bleeding; K74.60 Unspecified cirrhosis of liver; Z88.2 Allergy status to sulfonamides; Z88.1 Allergy status to other antibiotic agents; Z91.030 Bee allergy status
CPT/HCPCS: 66982; J0697; J1097; J2250; J3010; V2632

== ENCOUNTER → 2022-05-05 | Outpatient (CLI) | payer MEDICARE, OTHER ==
[~2022-05-05] MED LIST changes: -BSS IRR 500ML/OMIDRIA 4ML IRR BAG (OR ONLY) As Ordered ONE; -CEFUROXIME 1MG/0.1ML INTRACAMERAL INJ As Ordered ONE; -LIDOCAINE 1% SDV 5ML VIAL As Ordered ONE; -PROPARACAINE 0.5% OPHTH SOL 15ML OS ONE
== END ==
LOC: M WUC 15:35
PROVIDERS: ATTEND Student in an Organized Health Care Education/Training Program
DX: S82.432A Displaced oblique fracture of shaft of left fibula, initial encounter for closed fracture (principal); S92.152A Displaced avulsion fracture (chip fracture) of left talus, initial encounter for closed fracture; X58.XXXA Exposure to other specified factors, initial encounter; Y92.89 Other specified places as the place of occurrence of the external cause

== ENCOUNTER 2022-05-09 17:51 | Inpatient (IN) | payer MEDICARE, OTHER ==
[~2022-05-09] VITALS: Ht 167.6 cm; Wt 93.0 kg
[2022-05-09] MEDS ORDERED: DEXTROSE 50% 50 ML SYRINGE IV STA (18:48)
[2022-05-09 18:50] LABS: BASO % 0.1 % (0.0-1.0); EOS % 0.4 % (0.0-3.0); HEMATOCRIT 32.6 % (36.0-47.0); HEMOGLOBIN 11.1 g/dl (12.0-15.5); LYMPH # 0.8 10^3/uL (1.5-5.0); LYMPH % 7.7 % (24.0-44.0); MEAN CORPUSCULAR HEMOGLOBIN 34.4 pg (27.0-33.0); MEAN CORPUSCULAR VOLUME 100.9 fl (80.0-96.0); MONO # 0.9 10^3/uL (0.0-0.8); MONO % 8.9 % (2.0-8.0); NEUTROPHILS # 8.6 10^3/uL (1.5-8.5); NEUTROPHILS % 82.2 % (36.0-66.0); PLATELET COUNT, AUTOMATED 108 10^3/uL (150-450); RED BLOOD COUNT 3.23 10^6/uL (4.00-5.40); WHITE BLOOD COUNT 10.5 10^3/uL (4.0-10.0)
[2022-05-09 19:26] LABS: ACETAMINOPHEN LEVEL < 2.0 UG/ML (10.0-30.0); ALBUMIN 2.3 GM/DL (3.2-5.2); ALT/SGPT 110 U/L (12-78); BILIRUBIN,DIRECT 1.3 MG/DL (0.0-0.2); BLOOD UREA NITROGEN 103 MG/DL (7-18); CALCIUM LEVEL 8.7 MG/DL (8.8-10.2); CARBON DIOXIDE LEVEL 22 MEQ/L (21-32); CHLORIDE LEVEL 115 MEQ/L (98-107); CREATININE FOR GFR 2.42 MG/DL (0.55-1.30); ETHYL ALCOHOL (ETHANOL) < 0.003 % (0.000-0.010); GLUCOSE, FASTING 47 MG/DL (70-100); POTASSIUM SERUM 3.3 MEQ/L (3.5-5.1); SALICYLATE LEVEL < 1.7 MG/DL (5.0-30.0); SODIUM LEVEL 146 MEQ/L (136-145); THYROID STIMULATING HORMONE 0.995 uIU/ML (0.358-3.740); TOTAL PROTEIN 6.3 GM/DL (6.4-8.2)
[2022-05-09 19:27] LABS: AMPHETAMINES LEVEL URINE NEGATIVE (NEGATIVE); BARBITURATES URINE NEGATIVE (NEGATIVE); BENZODIAZEPINES URINE NEGATIVE (NEGATIVE); CANNABINOIDS URINE NEGATIVE (NEGATIVE); COCAINE METABOLITE URINE NEGATIVE (NEGATIVE); METHADONE URINE NEGATIVE (NEGATIVE); OPIATES URINE NEGATIVE (NEGATIVE); PHENCYCLIDINE URINE NEGATIVE (NEGATIVE)
[2022-05-09 19:36] LABS: RSV AMPLIFICATION NEGATIVE (NEGATIVE)
[2022-05-09] MEDS ORDERED: NS 500 ML IV ONE (19:55)
[2022-05-09] MEDS ORDERED: LACTULOSE 20 GM/30 ML SYRUP UD PO ONE (19:55)
[2022-05-09] MEDS ORDERED: NS 1,000 ML IV SCH (19:55)
[2022-05-09] MEDS ORDERED: med rec comment (20:34)
[2022-05-09] MEDS ORDERED: PANT-23 PO (20:34)
[2022-05-09] MEDS ORDERED: ALLO10TA PO (20:34)
[2022-05-09] MEDS ORDERED: METO1TAB32 PO (20:34)
[2022-05-09] MEDS ORDERED: LOVA20TA2 PO (20:34)
[2022-05-09] MEDS ORDERED: SPIR50TA4 PO (20:34)
[2022-05-09] MEDS ORDERED: HOME MED LIST COMPLETE! XX SCH (20:35)
[2022-05-09] MEDS ORDERED: MOM 30ML SUSPENSION UDC PO PRN (21:50)
[2022-05-09] MEDS ORDERED: GLUCAGON INJ 1MG VIAL SC PRN (22:55)
[2022-05-09] MEDS ORDERED: DEXTROSE 50% 50 ML SYRINGE IV PRN (22:55)
[2022-05-09] MEDS ORDERED: GLUCOSE 4GM CHEW TABLET PO PRN (22:55)
[2022-05-09 23:10] VITALS: BP 147/80
[2022-05-10] VITALS (9 sets, daily range): BP systolic 137–155; BP diastolic 56–66
[2022-05-10 01:18] LABS: INR 1.15; PROTHROMBIN TIME 15.1 SECONDS (12.7-14.5)
[2022-05-10] MEDS: HEPARIN SOD (PORCINE) 5000UNITS/ML 1ML VIAL/SYRINGE SC SCH ×3 (05:02→21:29)
[2022-05-10] MEDS: INSULIN LISPRO (NovoLOG) PER UNIT SC SCH ×5 (08:32→21:21)
[2022-05-10] MEDS: PANTOPRAZOLE 40MG TAB (PROTONIX) PO SCH ×2 (08:33→21:20)
[2022-05-10] MEDS: MULTIVITAMINS/MINERALS THERAP 1 TAB PO SCH (08:33)
[2022-05-10] MEDS: SPIRONOLACTONE 50 MG TAB PO SCH (08:33)
[2022-05-10] MEDS: LACTULOSE 20 GM/30 ML SYRUP UD PO SCH ×3 (08:33→21:19)
[2022-05-10] MEDS: allopurinoL 100 MG TAB PO SCH ×2 (08:33→21:20)
[2022-05-10] MEDS ORDERED: FUROSEMIDE 20 MG TAB PO SCH (09:00)
[2022-05-10 10:31] LABS: HEMATOCRIT 28.8 % (36.0-47.0); MEAN CORPUSCULAR HEMOGLOBIN 35.7 pg (27.0-33.0); MEAN CORPUSCULAR HGB CONC 34.7 g/dl (32.0-36.5); MEAN CORPUSCULAR VOLUME 102.9 fl (80.0-96.0); WHITE BLOOD COUNT 6.5 10^3/uL (4.0-10.0)
[2022-05-10 10:32] LABS: PLATELET COUNT, AUTOMATED 79 10^3/uL (150-450)
[2022-05-10] MEDS ORDERED: POTASSIUM CHLORIDE 10MEQ SR TABLET PO ONE (11:45)
[2022-05-10] MEDS: TORSEMIDE 100 MG TAB PO SCH (16:48)
[2022-05-10] MEDS: SIMVASTATIN 20 MG TAB PO SCH (21:20)
[2022-05-10] MEDS: METOPROLOL SUCC *XL* 25MG TAB (TopROL *XL*) PO SCH (21:21)
[2022-05-10] MEDS: ACETAMINOPHEN TAB 650MG DOSE (2X325MG) PO PRN (22:53)
[2022-05-10] MEDS: ONDANSETRON 4MG 2ML VIAL IV PRN (23:28)
[2022-05-11] MEDS: METOCLOPRAMIDE INJ 10MG/2ML VIAL (J2765 PER 1) IV PRN ×2 (02:08→10:20)
[2022-05-11] MEDS: HEPARIN SOD (PORCINE) 5000UNITS/ML 1ML VIAL/SYRINGE SC SCH ×3 (06:00→21:03)
[2022-05-11 06:08] VITALS: BP 135/52
[2022-05-11 06:49] LABS: ALBUMIN 2.4 GM/DL (3.2-5.2); CALCIUM LEVEL 8.4 MG/DL (8.8-10.2); CREATININE FOR GFR 2.53 MG/DL (0.55-1.30); PERCENT SATURATION 45.4 % (13.2-45.0); POTASSIUM SERUM 4.2 MEQ/L (3.5-5.1); TOTAL PROTEIN 5.3 GM/DL (6.4-8.2)
[2022-05-11] MEDS ORDERED: LIDOCAINE 1% MDV 20ML VIAL As Ordered ONE (08:37)
[2022-05-11 09:21] LABS: APPEARANCE, BODY FLUID CLOUDY (CLEAR); ASCITES FL COLOR YELLOW (COLORLESS); SOURCE, BODY FLUID ASCITES
[2022-05-11 09:22] LABS: SPEC. GRAVITY BODY FLUIDS 1.015 (NOT ESTABLISHED)
[2022-05-11 09:45] LABS: SOURCE, BODY FLUID ALBUMIN ASCITES
[2022-05-11 09:46] VITALS: BP 98/50
[2022-05-11 09:55] LABS: SOURCE, BODY FLUID GLUCOSE ASCITES; SOURCE, BODY FLUID TOT PROTEIN ASCITES; TOTAL PROTEIN, BODY FLUID 1.1 G/DL (NOT ESTABLISHED)
[2022-05-11] MEDS: LACTULOSE 20 GM/30 ML SYRUP UD PO SCH (10:03)
[2022-05-11] MEDS: PANTOPRAZOLE 40MG TAB (PROTONIX) PO SCH ×2 (10:03→20:31)
[2022-05-11] MEDS: allopurinoL 100 MG TAB PO SCH ×2 (10:03→20:31)
[2022-05-11] MEDS: MULTIVITAMINS/MINERALS THERAP 1 TAB PO SCH (10:03)
[2022-05-11] MEDS: INSULIN LISPRO (NovoLOG) PER UNIT SC SCH ×4 (10:04→20:34)
[2022-05-11] MEDS: TORSEMIDE 100 MG TAB PO SCH ×2 (10:07→17:52)
[2022-05-11] MEDS: SPIRONOLACTONE 50 MG TAB PO SCH (10:07)
[2022-05-11] MEDS: ONDANSETRON 4MG 2ML VIAL IV PRN (10:40)
[2022-05-11 10:48] VITALS: BP 118/50
[2022-05-11] MEDS: rifAXIMin 550 MG TAB (XIFAXAN) PO SCH ×2 (13:16→20:32)
[2022-05-11 14:00] VITALS: BP 120/49
[2022-05-11] MEDS: ACETAMINOPHEN TAB 650MG DOSE (2X325MG) PO PRN ×2 (16:57→21:00)
[2022-05-11] MEDS: SIMVASTATIN 20 MG TAB PO SCH (20:31)
[2022-05-11] MEDS: METOPROLOL SUCC *XL* 25MG TAB (TopROL *XL*) PO SCH (20:32)
[2022-05-11] MEDS ORDERED: LEVEMIR (INSULIN DETEMIR) 1 UNITS/0.01ML SC SCH (21:00)
[2022-05-11 22:00] VITALS: BP 132/49
[2022-05-12 00:28] LABS: HEMOGLOBIN A1c 6.9 %
[2022-05-12 05:35] VITALS: BP 134/54
[2022-05-12] MEDS: HEPARIN SOD (PORCINE) 5000UNITS/ML 1ML VIAL/SYRINGE SC SCH ×3 (06:00→20:59)
[2022-05-12 06:16] LABS: HEMATOCRIT 28.1 % (36.0-47.0); HEMOGLOBIN 9.6 g/dl (12.0-15.5); MEAN CORPUSCULAR HEMOGLOBIN 35.7 pg (27.0-33.0); MEAN CORPUSCULAR HGB CONC 34.2 g/dl (32.0-36.5); MEAN CORPUSCULAR VOLUME 104.5 fl (80.0-96.0); RED BLOOD COUNT 2.69 10^6/uL (4.00-5.40); WHITE BLOOD COUNT 3.9 10^3/uL (4.0-10.0)
[2022-05-12 06:17] LABS: PLATELET COUNT, AUTOMATED 61 10^3/uL (150-450)
[2022-05-12 06:59] LABS: CREATININE FOR GFR 2.53 MG/DL (0.55-1.30); POTASSIUM SERUM 4.1 MEQ/L (3.5-5.1)
[2022-05-12 07:00] LABS: ALBUMIN 2.4 GM/DL (3.2-5.2); CALCIUM LEVEL 8.6 MG/DL (8.8-10.2); TOTAL PROTEIN 5.7 GM/DL (6.4-8.2)
[2022-05-12] MEDS: ACETAMINOPHEN TAB 650MG DOSE (2X325MG) PO PRN ×2 (08:31→20:57)
[2022-05-12] MEDS: MULTIVITAMINS/MINERALS THERAP 1 TAB PO SCH (08:32)
[2022-05-12] MEDS: SPIRONOLACTONE 50 MG TAB PO SCH (08:32)
[2022-05-12] MEDS: rifAXIMin 550 MG TAB (XIFAXAN) PO SCH ×2 (08:32→20:57)
[2022-05-12] MEDS: allopurinoL 100 MG TAB PO SCH ×2 (08:32→20:57)
[2022-05-12] MEDS: PANTOPRAZOLE 40MG TAB (PROTONIX) PO SCH ×2 (08:32→20:57)
[2022-05-12] MEDS: TORSEMIDE 100 MG TAB PO SCH ×2 (08:33→17:50)
[2022-05-12] MEDS: INSULIN LISPRO (NovoLOG) PER UNIT SC SCH ×4 (08:35→20:58)
[2022-05-12 14:00] VITALS: BP 128/50
[2022-05-12] MEDS ORDERED: INSULIN LISPRO (NovoLOG) PER UNIT SC ONE (15:05)
[2022-05-12] MEDS: METOPROLOL SUCC *XL* 25MG TAB (TopROL *XL*) PO SCH (20:57)
[2022-05-12] MEDS: SIMVASTATIN 20 MG TAB PO SCH (20:57)
[2022-05-12] MEDS ORDERED: LEVEMIR (INSULIN DETEMIR) 1 UNITS/0.01ML SC SCH (21:00)
[2022-05-12 22:00] VITALS: BP 136/57
[2022-05-13] MEDS: HEPARIN SOD (PORCINE) 5000UNITS/ML 1ML VIAL/SYRINGE SC SCH ×4 (05:27→21:48)
[2022-05-13 06:00] VITALS: BP 142/64
[2022-05-13 06:41] LABS: HEMATOCRIT 31.3 % (36.0-47.0); HEMOGLOBIN 10.8 g/dl (12.0-15.5); MEAN CORPUSCULAR HGB CONC 34.5 g/dl (32.0-36.5); MEAN CORPUSCULAR VOLUME 104.3 fl (80.0-96.0); WHITE BLOOD COUNT 5.9 10^3/uL (4.0-10.0)
[2022-05-13 06:51] LABS: PLATELET COUNT, AUTOMATED 64 10^3/uL (150-450)
[2022-05-13 07:15] LABS: ALBUMIN 2.6 GM/DL (3.2-5.2); CALCIUM LEVEL 9.1 MG/DL (8.8-10.2); CREATININE FOR GFR 2.47 MG/DL (0.55-1.30); GLOMERULAR FILTRATION RATE 20.6 (>39); POTASSIUM SERUM 4.3 MEQ/L (3.5-5.1); TOTAL PROTEIN 6.1 GM/DL (6.4-8.2)
[2022-05-13] MEDS: rifAXIMin 550 MG TAB (XIFAXAN) PO SCH ×2 (08:28→21:43)
[2022-05-13] MEDS: INSULIN LISPRO (NovoLOG) PER UNIT SC SCH ×4 (08:28→21:47)
[2022-05-13] MEDS: SPIRONOLACTONE 50 MG TAB PO SCH (08:28)
[2022-05-13] MEDS: allopurinoL 100 MG TAB PO SCH ×2 (08:28→21:43)
[2022-05-13] MEDS: MULTIVITAMINS/MINERALS THERAP 1 TAB PO SCH (08:28)
[2022-05-13] MEDS: PANTOPRAZOLE 40MG TAB (PROTONIX) PO SCH ×2 (08:28→21:43)
[2022-05-13] MEDS: TORSEMIDE 100 MG TAB PO SCH ×2 (08:28→18:43)
[2022-05-13] MEDS ORDERED: INSULIN LISPRO (NovoLOG) PER UNIT SC ONE ×2 (10:35→23:15)
[2022-05-13] MEDS ORDERED: INSULIN LISPRO (NovoLOG) PER UNIT SC STA (10:41)
[2022-05-13] MEDS ORDERED: LEVEMIR (INSULIN DETEMIR) 1 UNITS/0.01ML SC SCH (12:00)
[2022-05-13 14:00] VITALS: BP 138/55
[2022-05-13] MEDS: LACTULOSE 20 GM/30 ML SYRUP UD PO SCH ×2 (15:13→21:42)
[2022-05-13] MEDS ORDERED: LACTULOSE 20 GM/30 ML SYRUP UD PO SCH (16:00)
[2022-05-13] MEDS: ONDANSETRON 4MG 2ML VIAL IV PRN (16:10)
[2022-05-13] MEDS: METOCLOPRAMIDE INJ 10MG/2ML VIAL (J2765 PER 1) IV PRN (17:01)
[2022-05-13 18:28] LABS: ABG BASE EXCESS -2.6 (-2.0-2.0); ABG O2 SATURATION 93.2 % (95.0-99.0); ABG PARTIAL PRESSURE CO2 32.4 mmHg (35.0-45.0); ABG PARTIAL PRESSURE O2 66.7 mmHg (75.0-100.0); ABG STANDARD HCO3 22.2 MEQ/L (22.0-26.0); ABG pH (ARTERIAL) 7.429 UNITS (7.350-7.450)
[2022-05-13 19:14] LABS: ALBUMIN 2.6 GM/DL (3.2-5.2); BILIRUBIN,TOTAL 1.8 MG/DL (0.2-1.0); CALCIUM LEVEL 9.1 MG/DL (8.8-10.2); CREATININE FOR GFR 2.59 MG/DL (0.55-1.30); GLOMERULAR FILTRATION RATE 19.5 (>39); POTASSIUM SERUM 4.1 MEQ/L (3.5-5.1); TOTAL PROTEIN 6.2 GM/DL (6.4-8.2)
[2022-05-13 19:57] VITALS: BP 128/57
[2022-05-13] MEDS: SIMVASTATIN 20 MG TAB PO SCH (21:43)
[2022-05-13] MEDS: METOPROLOL SUCC *XL* 25MG TAB (TopROL *XL*) PO SCH (21:45)
[2022-05-13] MEDS: LEVEMIR (INSULIN DETEMIR) 1 UNITS/0.01ML SC SCH (21:46)
[2022-05-14 04:30] LABS: AMORPHOUS SEDIMENT SMALL (NEGATIVE); APPEARANCE, URINE CLEAR (CLEAR); BACTERIA, URINE AUTO NEGATIVE (NEGATIVE); BILIRUBIN, URINE AUTO NEGATIVE (NEGATIVE); BLOOD, URINE BLOOD 3+ (NEGATIVE); COLOR, URINE YELLOW (YELLOW); GLUCOSE, URINE (UA) AUTO 2+ mg/dL (NEGATIVE); KETONE, URINE AUTO NEGATIVE (NEGATIVE); LEUKOCYTE ESTERASE, URINE AUTO NEGATIVE (NEGATIVE); NITRITE, URINE AUTO NEGATIVE (NEGATIVE); PROTEIN, URINE AUTO NEGATIVE (NEGATIVE); RBC, URINE AUTO 52 /HPF (0-3); SPECIFIC GRAVITY URINE AUTO 1.009 (1.002-1.035); SQUAMOUS EPITHELIAL CELL UR AU 1 /HPF (0-6); UROBILINOGEN, URINE AUTO 0.2 mg/dL (0.0-2.0); WBC, URINE AUTO 0 /HPF (0-3)
[2022-05-14] MEDS: HEPARIN SOD (PORCINE) 5000UNITS/ML 1ML VIAL/SYRINGE SC SCH ×4 (05:09→21:29)
[2022-05-14 05:59] VITALS: BP 126/58
[2022-05-14 06:26] LABS: BASO % 0.1 % (0.0-1.0); EOS # 0.1 10^3/uL (0.0-0.5); HEMATOCRIT 31.8 % (36.0-47.0); HEMOGLOBIN 10.7 g/dl (12.0-15.5); LYMPH # 0.7 10^3/uL (1.5-5.0); LYMPH % 10.1 % (24.0-44.0); MEAN CORPUSCULAR HEMOGLOBIN 34.7 pg (27.0-33.0); MEAN CORPUSCULAR HGB CONC 33.6 g/dl (32.0-36.5); MEAN CORPUSCULAR VOLUME 103.2 fl (80.0-96.0); MONO # 0.4 10^3/uL (0.0-0.8); MONO % 5.4 % (2.0-8.0); NEUTROPHILS # 5.6 10^3/uL (1.5-8.5); RED BLOOD COUNT 3.08 10^6/uL (4.00-5.40); WHITE BLOOD COUNT 6.8 10^3/uL (4.0-10.0)
[2022-05-14 06:32] LABS: PLATELET COUNT, AUTOMATED 62 10^3/uL (150-450)
[2022-05-14 08:11] LABS: CALCIUM LEVEL 9.1 MG/DL (8.8-10.2); CREATININE FOR GFR 2.39 MG/DL (0.55-1.30); GLOMERULAR FILTRATION RATE 21.3 (>39)
[2022-05-14 08:56] VITALS: BP 140/56
[2022-05-14] MEDS: INSULIN LISPRO (NovoLOG) PER UNIT SC SCH ×4 (09:15→21:24)
[2022-05-14] MEDS: LACTULOSE 20 GM/30 ML SYRUP UD PO SCH ×3 (10:35→21:25)
[2022-05-14] MEDS: MULTIVITAMINS/MINERALS THERAP 1 TAB PO SCH (10:36)
[2022-05-14] MEDS: SPIRONOLACTONE 50 MG TAB PO SCH (10:36)
[2022-05-14] MEDS: LEVEMIR (INSULIN DETEMIR) 1 UNITS/0.01ML SC SCH ×2 (10:36→21:22)
[2022-05-14] MEDS: PANTOPRAZOLE 40MG TAB (PROTONIX) PO SCH ×2 (10:36→21:27)
[2022-05-14] MEDS: rifAXIMin 550 MG TAB (XIFAXAN) PO SCH ×2 (10:36→21:28)
[2022-05-14] MEDS: allopurinoL 100 MG TAB PO SCH ×2 (10:37→21:27)
[2022-05-14] MEDS: TORSEMIDE 100 MG TAB PO SCH ×2 (10:37→17:55)
[2022-05-14 14:04] VITALS: BP 138/60
[2022-05-14] MEDS: SIMVASTATIN 20 MG TAB PO SCH (21:27)
[2022-05-14] MEDS: METOPROLOL SUCC *XL* 25MG TAB (TopROL *XL*) PO SCH (21:28)
[2022-05-14 22:00] VITALS: BP 144/68
[2022-05-15] MEDS: HEPARIN SOD (PORCINE) 5000UNITS/ML 1ML VIAL/SYRINGE SC SCH ×4 (04:55→21:30)
[2022-05-15 07:32] LABS: HEMATOCRIT 31.1 % (36.0-47.0); HEMOGLOBIN 10.5 g/dl (12.0-15.5); MEAN CORPUSCULAR HEMOGLOBIN 35.8 pg (27.0-33.0); MEAN CORPUSCULAR HGB CONC 33.8 g/dl (32.0-36.5); MEAN CORPUSCULAR VOLUME 106.1 fl (80.0-96.0); PLATELET COUNT, AUTOMATED 61 10^3/uL (150-450); RED BLOOD COUNT 2.93 10^6/uL (4.00-5.40); WHITE BLOOD COUNT 6.7 10^3/uL (4.0-10.0)
[2022-05-15 08:02] LABS: ALBUMIN 2.5 GM/DL (3.2-5.2); CALCIUM LEVEL 9.1 MG/DL (8.8-10.2); CREATININE FOR GFR 2.31 MG/DL (0.55-1.30); GLOMERULAR FILTRATION RATE 22.2 (>39); TOTAL PROTEIN 5.8 GM/DL (6.4-8.2)
[2022-05-15] MEDS: LEVEMIR (INSULIN DETEMIR) 1 UNITS/0.01ML SC SCH ×2 (08:19→21:25)
[2022-05-15] MEDS: LACTULOSE 20 GM/30 ML SYRUP UD PO SCH ×3 (08:20→21:24)
[2022-05-15] MEDS: INSULIN LISPRO (NovoLOG) PER UNIT SC SCH ×4 (08:20→21:26)
[2022-05-15] MEDS: allopurinoL 100 MG TAB PO SCH ×2 (08:20→21:25)
[2022-05-15] MEDS: rifAXIMin 550 MG TAB (XIFAXAN) PO SCH ×2 (08:20→21:24)
[2022-05-15] MEDS: PANTOPRAZOLE 40MG TAB (PROTONIX) PO SCH ×2 (08:20→21:24)
[2022-05-15] MEDS: MULTIVITAMINS/MINERALS THERAP 1 TAB PO SCH (08:20)
[2022-05-15] MEDS: SPIRONOLACTONE 50 MG TAB PO SCH (09:05)
[2022-05-15] MEDS: TORSEMIDE 20 MG TAB PO SCH ×2 (09:05→17:20)
[2022-05-15 14:00] VITALS: BP 133/56
[2022-05-15 20:00] VITALS: BP 132/56
[2022-05-15] MEDS: SIMVASTATIN 20 MG TAB PO SCH (21:24)
[2022-05-15] MEDS: METOPROLOL SUCC *XL* 25MG TAB (TopROL *XL*) PO SCH (21:25)
[2022-05-15 22:00] VITALS: BP 132/56
[2022-05-16] MEDS: HEPARIN SOD (PORCINE) 5000UNITS/ML 1ML VIAL/SYRINGE SC SCH ×3 (05:21→22:00)
[2022-05-16] MEDS: LACTULOSE 20 GM/30 ML SYRUP UD PO SCH ×3 (05:21→21:23)
[2022-05-16 06:00] VITALS: BP 135/62
[2022-05-16 06:31] LABS: HEMATOCRIT 31.5 % (36.0-47.0); HEMOGLOBIN 10.6 g/dl (12.0-15.5); MEAN CORPUSCULAR HEMOGLOBIN 35.8 pg (27.0-33.0); MEAN CORPUSCULAR HGB CONC 33.7 g/dl (32.0-36.5); MEAN CORPUSCULAR VOLUME 106.4 fl (80.0-96.0); RED BLOOD COUNT 2.96 10^6/uL (4.00-5.40); WHITE BLOOD COUNT 7.4 10^3/uL (4.0-10.0)
[2022-05-16 06:33] LABS: PLATELET COUNT, AUTOMATED 55 10^3/uL (150-450)
[2022-05-16 07:01] LABS: ALBUMIN 2.4 GM/DL (3.2-5.2); BILIRUBIN,TOTAL 1.8 MG/DL (0.2-1.0); CALCIUM LEVEL 8.7 MG/DL (8.8-10.2); CREATININE FOR GFR 2.41 MG/DL (0.55-1.30); GLOMERULAR FILTRATION RATE 21.1 (>39); TOTAL PROTEIN 5.6 GM/DL (6.4-8.2)
[2022-05-16] MEDS: LEVEMIR (INSULIN DETEMIR) 1 UNITS/0.01ML SC SCH ×2 (09:00→21:23)
[2022-05-16] MEDS: INSULIN LISPRO (NovoLOG) PER UNIT SC SCH ×4 (09:01→21:23)
[2022-05-16] MEDS: allopurinoL 100 MG TAB PO SCH ×2 (09:01→21:22)
[2022-05-16] MEDS: PANTOPRAZOLE 40MG TAB (PROTONIX) PO SCH ×2 (09:01→21:22)
[2022-05-16] MEDS: MULTIVITAMINS/MINERALS THERAP 1 TAB PO SCH (09:01)
[2022-05-16] MEDS: rifAXIMin 550 MG TAB (XIFAXAN) PO SCH (09:01)
[2022-05-16] MEDS: TORSEMIDE 20 MG TAB PO SCH ×2 (09:02→17:33)
[2022-05-16] MEDS: SPIRONOLACTONE 50 MG TAB PO SCH (09:02)
[2022-05-16 14:00] VITALS: BP 140/50
[2022-05-16] MEDS: SIMVASTATIN 20 MG TAB PO SCH (21:21)
[2022-05-16] MEDS: METOPROLOL SUCC *XL* 25MG TAB (TopROL *XL*) PO SCH (21:22)
[2022-05-17] MEDS: HEPARIN SOD (PORCINE) 5000UNITS/ML 1ML VIAL/SYRINGE SC SCH ×3 (05:30→21:58)
[2022-05-17] MEDS: LACTULOSE 20 GM/30 ML SYRUP UD PO SCH ×3 (05:31→21:56)
[2022-05-17 05:41] VITALS: BP 129/48
[2022-05-17 06:32] LABS: HEMATOCRIT 33.2 % (36.0-47.0); HEMOGLOBIN 11.1 g/dl (12.0-15.5); MEAN CORPUSCULAR HEMOGLOBIN 35.2 pg (27.0-33.0); MEAN CORPUSCULAR HGB CONC 33.4 g/dl (32.0-36.5); MEAN CORPUSCULAR VOLUME 105.4 fl (80.0-96.0); RED BLOOD COUNT 3.15 10^6/uL (4.00-5.40); WHITE BLOOD COUNT 7.7 10^3/uL (4.0-10.0)
[2022-05-17 06:38] LABS: PLATELET COUNT, AUTOMATED 63 10^3/uL (150-450)
[2022-05-17 06:58] LABS: ALBUMIN 2.5 GM/DL (3.2-5.2); CALCIUM LEVEL 8.9 MG/DL (8.8-10.2); CREATININE FOR GFR 2.42 MG/DL (0.55-1.30); POTASSIUM SERUM 3.8 MEQ/L (3.5-5.1)
[2022-05-17] MEDS: INSULIN LISPRO (NovoLOG) PER UNIT SC SCH ×4 (08:41→21:53)
[2022-05-17] MEDS: TORSEMIDE 20 MG TAB PO SCH ×2 (08:42→17:18)
[2022-05-17] MEDS: SPIRONOLACTONE 50 MG TAB PO SCH ×2 (08:42→17:18)
[2022-05-17] MEDS: PANTOPRAZOLE 40MG TAB (PROTONIX) PO SCH ×2 (08:42→21:54)
[2022-05-17] MEDS: MULTIVITAMINS/MINERALS THERAP 1 TAB PO SCH (08:42)
[2022-05-17] MEDS: allopurinoL 100 MG TAB PO SCH ×2 (08:42→21:53)
[2022-05-17] MEDS ORDERED: LEVEMIR (INSULIN DETEMIR) 1 UNITS/0.01ML SC SCH (09:00)
[2022-05-17 14:00] VITALS: BP 138/50
[2022-05-17] MEDS: ONDANSETRON 4MG 2ML VIAL IV PRN (20:18)
[2022-05-17 20:22] VITALS: BP 130/43
[2022-05-17] MEDS: LEVEMIR (INSULIN DETEMIR) 1 UNITS/0.01ML SC SCH (21:52)
[2022-05-17] MEDS: SIMVASTATIN 20 MG TAB PO SCH (21:53)
[2022-05-17] MEDS: METOPROLOL SUCC *XL* 25MG TAB (TopROL *XL*) PO SCH (21:54)
[2022-05-18] MEDS: MAALOX 30 ML SUSP *UDC PO PRN (00:19)
[2022-05-18] MEDS: METOCLOPRAMIDE INJ 10MG/2ML VIAL (J2765 PER 1) IV PRN (00:20)
[2022-05-18 05:04] VITALS: BP 131/45
[2022-05-18] MEDS: HEPARIN SOD (PORCINE) 5000UNITS/ML 1ML VIAL/SYRINGE SC SCH ×4 (06:00→21:46)
[2022-05-18 06:19] LABS: HEMATOCRIT 31.9 % (36.0-47.0); HEMOGLOBIN 10.7 g/dl (12.0-15.5); MEAN CORPUSCULAR HEMOGLOBIN 35.9 pg (27.0-33.0); MEAN CORPUSCULAR HGB CONC 33.5 g/dl (32.0-36.5); RED BLOOD COUNT 2.98 10^6/uL (4.00-5.40); WHITE BLOOD COUNT 7.5 10^3/uL (4.0-10.0)
[2022-05-18 06:22] LABS: PLATELET COUNT, AUTOMATED 59 10^3/uL (150-450)
[2022-05-18] MEDS: LACTULOSE 20 GM/30 ML SYRUP UD PO SCH ×3 (06:33→21:38)
[2022-05-18 06:39] LABS: ALBUMIN 2.4 GM/DL (3.2-5.2); BILIRUBIN,TOTAL 2.3 MG/DL (0.2-1.0); CALCIUM LEVEL 9.1 MG/DL (8.8-10.2); CREATININE FOR GFR 2.31 MG/DL (0.55-1.30); GLOMERULAR FILTRATION RATE 22.2 (>39); POTASSIUM SERUM 3.9 MEQ/L (3.5-5.1); TOTAL PROTEIN 5.6 GM/DL (6.4-8.2)
[2022-05-18] MEDS: MULTIVITAMINS/MINERALS THERAP 1 TAB PO SCH (07:56)
[2022-05-18] MEDS: TORSEMIDE 20 MG TAB PO SCH ×2 (07:56→16:27)
[2022-05-18] MEDS: PANTOPRAZOLE 40MG TAB (PROTONIX) PO SCH ×2 (07:56→21:40)
[2022-05-18] MEDS: SPIRONOLACTONE 50 MG TAB PO SCH ×2 (07:57→16:27)
[2022-05-18] MEDS: LEVEMIR (INSULIN DETEMIR) 1 UNITS/0.01ML SC SCH ×2 (07:57→21:39)
[2022-05-18] MEDS: allopurinoL 100 MG TAB PO SCH ×2 (07:57→21:40)
[2022-05-18] MEDS: INSULIN LISPRO (NovoLOG) PER UNIT SC SCH ×4 (07:58→21:42)
[2022-05-18 14:00] VITALS: BP 132/46
[2022-05-18 21:23] VITALS: BP 133/47
[2022-05-18] MEDS: SIMVASTATIN 20 MG TAB PO SCH (21:40)
[2022-05-18] MEDS: METOPROLOL SUCC *XL* 25MG TAB (TopROL *XL*) PO SCH (21:41)
[2022-05-19] MEDS: MAALOX 30 ML SUSP *UDC PO PRN (01:36)
[2022-05-19] MEDS ORDERED: CALCIUM CARBONATE 500 MG CHEW U/D PO PRN (03:20)
[2022-05-19 05:16] VITALS: BP 139/65
[2022-05-19] MEDS: HEPARIN SOD (PORCINE) 5000UNITS/ML 1ML VIAL/SYRINGE SC SCH ×3 (05:37→21:10)
[2022-05-19] MEDS: LACTULOSE 20 GM/30 ML SYRUP UD PO SCH ×3 (05:37→21:08)
[2022-05-19] MEDS: ACETAMINOPHEN TAB 650MG DOSE (2X325MG) PO PRN (07:33)
[2022-05-19] MEDS: INSULIN LISPRO (NovoLOG) PER UNIT SC SCH ×4 (08:12→21:09)
[2022-05-19] MEDS: LEVEMIR (INSULIN DETEMIR) 1 UNITS/0.01ML SC SCH ×2 (08:12→21:08)
[2022-05-19] MEDS: MULTIVITAMINS/MINERALS THERAP 1 TAB PO SCH (08:13)
[2022-05-19] MEDS: allopurinoL 100 MG TAB PO SCH ×2 (08:13→21:09)
[2022-05-19] MEDS: PANTOPRAZOLE 40MG TAB (PROTONIX) PO SCH ×2 (08:13→21:09)
[2022-05-19] MEDS: SPIRONOLACTONE 50 MG TAB PO SCH (08:13)
[2022-05-19] MEDS: TORSEMIDE 20 MG TAB PO SCH (08:13)
[2022-05-19 09:27] LABS: BASO % 0.1 % (0.0-1.0); EOS # 0.1 10^3/uL (0.0-0.5); HEMATOCRIT 33.8 % (36.0-47.0); HEMOGLOBIN 11.3 g/dl (12.0-15.5); LYMPH # 0.7 10^3/uL (1.5-5.0); LYMPH % 7.4 % (24.0-44.0); MEAN CORPUSCULAR HEMOGLOBIN 35.9 pg (27.0-33.0); MEAN CORPUSCULAR HGB CONC 33.4 g/dl (32.0-36.5); MEAN CORPUSCULAR VOLUME 107.3 fl (80.0-96.0); MONO # 0.6 10^3/uL (0.0-0.8); MONO % 6.5 % (2.0-8.0); NEUTROPHILS # 8.4 10^3/uL (1.5-8.5); NEUTROPHILS % 84.5 % (36.0-66.0); RED BLOOD COUNT 3.15 10^6/uL (4.00-5.40); WHITE BLOOD COUNT 9.9 10^3/uL (4.0-10.0)
[2022-05-19 09:28] LABS: PLATELET COUNT, AUTOMATED 74 10^3/uL (150-450)
[2022-05-19 10:15] LABS: ALBUMIN 2.6 GM/DL (3.2-5.2); BILIRUBIN,TOTAL 3.6 MG/DL (0.2-1.0); CALCIUM LEVEL 9.1 MG/DL (8.8-10.2); CREATININE FOR GFR 2.6 MG/DL (0.55-1.30); GLOMERULAR FILTRATION RATE 19.4 (>39); MAGNESIUM LEVEL 2.1 MG/DL (1.8-2.4); POTASSIUM SERUM 4.1 MEQ/L (3.5-5.1); TOTAL PROTEIN 6.2 GM/DL (6.4-8.2)
[2022-05-19 14:00] VITALS: BP 131/51
[2022-05-19 16:28] LABS: SPEC. GRAVITY BODY FLUIDS 1.016 (NOT ESTABLISHED)
[2022-05-19 16:40] LABS: APPEARANCE, BODY FLUID CLEAR (CLEAR); ASCITES FL COLOR YELLOW (COLORLESS); SOURCE, BODY FLUID ASCITES
[2022-05-19 16:46] LABS: SOURCE, BODY FLUID ALBUMIN ASCITES; SOURCE, BODY FLUID GLUCOSE ASCITES; SOURCE, BODY FLUID TOT PROTEIN ASCITES; TOTAL PROTEIN, BODY FLUID 1.2 G/DL (NOT ESTABLISHED)
[2022-05-19 20:55] VITALS: BP 135/53
[2022-05-19] MEDS: SIMVASTATIN 20 MG TAB PO SCH (21:09)
[2022-05-19] MEDS: METOPROLOL SUCC *XL* 25MG TAB (TopROL *XL*) PO SCH (21:10)
[2022-05-20 05:02] VITALS: BP 130/54
[2022-05-20] MEDS: LACTULOSE 20 GM/30 ML SYRUP UD PO SCH ×3 (05:52→21:23)
[2022-05-20] MEDS: HEPARIN SOD (PORCINE) 5000UNITS/ML 1ML VIAL/SYRINGE SC SCH ×4 (05:52→21:25)
[2022-05-20] MEDS: INSULIN LISPRO (NovoLOG) PER UNIT SC SCH ×4 (07:30→21:24)
[2022-05-20 07:37] LABS: BASO % 0.1 % (0.0-1.0); EOS # 0.1 10^3/uL (0.0-0.5); EOS % 1.5 % (0.0-3.0); HEMATOCRIT 33.9 % (36.0-47.0); HEMOGLOBIN 11.4 g/dl (12.0-15.5); LYMPH # 0.8 10^3/uL (1.5-5.0); LYMPH % 10.3 % (24.0-44.0); MEAN CORPUSCULAR HEMOGLOBIN 35.7 pg (27.0-33.0); MEAN CORPUSCULAR HGB CONC 33.6 g/dl (32.0-36.5); MEAN CORPUSCULAR VOLUME 106.3 fl (80.0-96.0); MONO # 0.5 10^3/uL (0.0-0.8); MONO % 7.2 % (2.0-8.0); NEUTROPHILS # 5.8 10^3/uL (1.5-8.5); NEUTROPHILS % 80.5 % (36.0-66.0); RED BLOOD COUNT 3.19 10^6/uL (4.00-5.40); WHITE BLOOD COUNT 7.3 10^3/uL (4.0-10.0)
[2022-05-20 07:38] LABS: PLATELET COUNT, AUTOMATED 65 10^3/uL (150-450)
[2022-05-20 08:10] LABS: ALBUMIN 2.5 GM/DL (3.2-5.2); BILIRUBIN,TOTAL 3.1 MG/DL (0.2-1.0); CREATININE FOR GFR 2.37 MG/DL (0.55-1.30); GLOMERULAR FILTRATION RATE 21.6 (>39); MAGNESIUM LEVEL 2.1 MG/DL (1.8-2.4); POTASSIUM SERUM 3.8 MEQ/L (3.5-5.1); TOTAL PROTEIN 6.1 GM/DL (6.4-8.2)
[2022-05-20] MEDS: PANTOPRAZOLE 40MG TAB (PROTONIX) PO SCH ×2 (08:19→21:22)
[2022-05-20] MEDS: MULTIVITAMINS/MINERALS THERAP 1 TAB PO SCH (08:20)
[2022-05-20] MEDS: allopurinoL 100 MG TAB PO SCH ×2 (08:20→21:22)
[2022-05-20] MEDS: LEVEMIR (INSULIN DETEMIR) 1 UNITS/0.01ML SC SCH ×2 (08:21→21:23)
[2022-05-20 14:00] VITALS: BP 133/63
[2022-05-20 21:06] VITALS: BP 132/58
[2022-05-20] MEDS: METOPROLOL SUCC *XL* 25MG TAB (TopROL *XL*) PO SCH (21:22)
[2022-05-20] MEDS: SIMVASTATIN 20 MG TAB PO SCH (21:22)
[2022-05-21] MEDS: ONDANSETRON 4MG 2ML VIAL IV PRN ×2 (03:38→21:47)
[2022-05-21] MEDS: HEPARIN SOD (PORCINE) 5000UNITS/ML 1ML VIAL/SYRINGE SC SCH ×3 (03:41→21:07)
[2022-05-21] MEDS: LACTULOSE 20 GM/30 ML SYRUP UD PO SCH ×3 (05:31→22:46)
[2022-05-21 05:40] VITALS: BP 112/58
[2022-05-21 06:55] LABS: BASO % 0.2 % (0.0-1.0); EOS # 0.1 10^3/uL (0.0-0.5); HEMATOCRIT 33.2 % (36.0-47.0); HEMOGLOBIN 10.9 g/dl (12.0-15.5); LYMPH # 0.8 10^3/uL (1.5-5.0); LYMPH % 8.8 % (24.0-44.0); MEAN CORPUSCULAR HEMOGLOBIN 34.5 pg (27.0-33.0); MEAN CORPUSCULAR HGB CONC 32.8 g/dl (32.0-36.5); MEAN CORPUSCULAR VOLUME 105.1 fl (80.0-96.0); MONO # 0.8 10^3/uL (0.0-0.8); MONO % 8.3 % (2.0-8.0); NEUTROPHILS # 7.4 10^3/uL (1.5-8.5); RED BLOOD COUNT 3.16 10^6/uL (4.00-5.40); WHITE BLOOD COUNT 9.1 10^3/uL (4.0-10.0)
[2022-05-21 07:06] LABS: PLATELET COUNT, AUTOMATED 77 10^3/uL (150-450)
[2022-05-21 07:21] LABS: ALBUMIN 2.4 GM/DL (3.2-5.2); BILIRUBIN,TOTAL 2.6 MG/DL (0.2-1.0); CALCIUM LEVEL 8.9 MG/DL (8.8-10.2); CREATININE FOR GFR 2.48 MG/DL (0.55-1.30); GLOMERULAR FILTRATION RATE 20.5 (>39); MAGNESIUM LEVEL 2.2 MG/DL (1.8-2.4); POTASSIUM SERUM 4.2 MEQ/L (3.5-5.1); TOTAL PROTEIN 5.9 GM/DL (6.4-8.2)
[2022-05-21] MEDS: MULTIVITAMINS/MINERALS THERAP 1 TAB PO SCH (08:23)
[2022-05-21] MEDS: PANTOPRAZOLE 40MG TAB (PROTONIX) PO SCH ×2 (08:24→20:25)
[2022-05-21] MEDS: allopurinoL 100 MG TAB PO SCH ×2 (08:24→20:25)
[2022-05-21] MEDS: INSULIN LISPRO (NovoLOG) PER UNIT SC SCH ×4 (08:25→20:26)
[2022-05-21] MEDS: LEVEMIR (INSULIN DETEMIR) 1 UNITS/0.01ML SC SCH ×2 (08:25→20:23)
[2022-05-21 14:00] VITALS: BP 138/58
[2022-05-21 20:25] VITALS: BP 136/56
[2022-05-21] MEDS: METOPROLOL SUCC *XL* 25MG TAB (TopROL *XL*) PO SCH (20:25)
[2022-05-21] MEDS: SIMVASTATIN 20 MG TAB PO SCH (20:25)
[2022-05-21] MEDS: METOCLOPRAMIDE INJ 10MG/2ML VIAL (J2765 PER 1) IV PRN (23:14)
[2022-05-22] MEDS: HEPARIN SOD (PORCINE) 5000UNITS/ML 1ML VIAL/SYRINGE SC SCH ×2 (05:20→13:59)
[2022-05-22] MEDS: LACTULOSE 20 GM/30 ML SYRUP UD PO SCH ×2 (05:31→13:58)
[2022-05-22 06:00] VITALS: BP 133/57
[2022-05-22 06:55] LABS: BASO % 0.1 % (0.0-1.0); EOS # 0.1 10^3/uL (0.0-0.5); EOS % 1.2 % (0.0-3.0); HEMOGLOBIN 11.4 g/dl (12.0-15.5); LYMPH # 0.8 10^3/uL (1.5-5.0); LYMPH % 9.6 % (24.0-44.0); MEAN CORPUSCULAR HEMOGLOBIN 35.3 pg (27.0-33.0); MEAN CORPUSCULAR HGB CONC 32.6 g/dl (32.0-36.5); MEAN CORPUSCULAR VOLUME 108.4 fl (80.0-96.0); MONO # 0.8 10^3/uL (0.0-0.8); MONO % 9.3 % (2.0-8.0); NEUTROPHILS # 6.4 10^3/uL (1.5-8.5); NEUTROPHILS % 79.2 % (36.0-66.0); RED BLOOD COUNT 3.23 10^6/uL (4.00-5.40); WHITE BLOOD COUNT 8.1 10^3/uL (4.0-10.0)
[2022-05-22 07:11] LABS: PLATELET COUNT, AUTOMATED 79 10^3/uL (150-450)
[2022-05-22 07:36] LABS: ALBUMIN 2.4 GM/DL (3.2-5.2); BILIRUBIN,TOTAL 2.9 MG/DL (0.2-1.0); CALCIUM LEVEL 9.2 MG/DL (8.8-10.2); CREATININE FOR GFR 2.67 MG/DL (0.55-1.30); GLOMERULAR FILTRATION RATE 18.8 (>39); MAGNESIUM LEVEL 2.2 MG/DL (1.8-2.4); POTASSIUM SERUM 4.1 MEQ/L (3.5-5.1); TOTAL PROTEIN 6.5 GM/DL (6.4-8.2)
[2022-05-22] MEDS: INSULIN LISPRO (NovoLOG) PER UNIT SC SCH ×2 (09:04→13:59)
[2022-05-22] MEDS: LEVEMIR (INSULIN DETEMIR) 1 UNITS/0.01ML SC SCH (09:05)
[2022-05-22] MEDS: MULTIVITAMINS/MINERALS THERAP 1 TAB PO SCH (09:05)
[2022-05-22] MEDS: allopurinoL 100 MG TAB PO SCH (09:05)
[2022-05-22] MEDS: PANTOPRAZOLE 40MG TAB (PROTONIX) PO SCH (09:05)
[2022-05-22] MEDS ORDERED: XIFA200T2 PO (10:46)
[2022-05-22] MEDS ORDERED: SIMV20TA22 PO (10:46)
[2022-05-22] MEDS ORDERED: INSUDET SC ×2 (10:46)
[2022-05-22] MEDS ORDERED: ACET1TAB55 PO (10:46)
[2022-05-22] MEDS ORDERED: LACT20EL PO (10:46)
[2022-05-22] MEDS ORDERED: HYDR-3363 PO (10:46)
[2022-05-22] MEDS ORDERED: CALC200T15 PO (10:47)
[2022-05-22] MEDS ORDERED: REGL5TAB2 PO (10:47)
[2022-05-22] MEDS ORDERED: HUMA100I5 SC (10:50)
== END 2022-05-22 14:05 | DRG 442 ==
LOC: M ED 17:51 → EDBD 17:51 → M ED INP 21:47 → M MSPAV 23:10
PROVIDERS: ADMIT Family Medicine; ATTEND Family Medicine
PROC: 30233J1 Transfusion of Nonautologous Serum Albumin into Peripheral Vein, Percutaneous Approach (ICD-10-PCS; principal; 2022-05-10)
PROC: 0W9G3ZZ Drainage of Peritoneal Cavity, Percutaneous Approach (ICD-10-PCS; 2022-05-11)
PROC: 0W9G3ZX Drainage of Peritoneal Cavity, Percutaneous Approach, Diagnostic (ICD-10-PCS; 2022-05-19)
DX: K72.90 Hepatic failure, unspecified without coma (principal); N17.9 Acute kidney failure, unspecified; I50.32 Chronic diastolic (congestive) heart failure; N18.4 Chronic kidney disease, stage 4 (severe); I13.0 Hypertensive heart and chronic kidney disease with heart failure and stage 1 through stage 4 chronic kidney disease, or unspecified chronic kidney disease; Q60.5 Renal hypoplasia, unspecified; R18.8 Other ascites; E87.0 Hyperosmolality and hypernatremia; E87.6 Hypokalemia; E11.22 Type 2 diabetes mellitus with diabetic chronic kidney disease; E11.42 Type 2 diabetes mellitus with diabetic polyneuropathy; M10.9 Gout, unspecified; K21.9 Gastro-esophageal reflux disease without esophagitis; E66.9 Obesity, unspecified; K75.81 Nonalcoholic steatohepatitis (NASH); K74.69 Other cirrhosis of liver; E88.09 Other disorders of plasma-protein metabolism, not elsewhere classified; Z79.899 Other long term (current) drug therapy; E11.649 Type 2 diabetes mellitus with hypoglycemia without coma; Z88.2 Allergy status to sulfonamides; Z88.8 Allergy status to other drugs, medicaments and biological substances; Z91.030 Bee allergy status; D64.9 Anemia, unspecified; Z68.35 Body mass index [BMI] 35.0-35.9, adult; Z87.891 Personal history of nicotine dependence; S82.432A Displaced oblique fracture of shaft of left fibula, initial encounter for closed fracture; W19.XXXA Unspecified fall, initial encounter; Y92.9 Unspecified place or not applicable; Y99.8 Other external cause status; Z79.4 Long term (current) use of insulin; Z96.41 Presence of insulin pump (external) (internal)